=== PATIENT | female | born 1935 | race Caucasian/White ===

== ENCOUNTER 2017-11-21 17:03 | Inpatient (IN) | payer MEDICARE ==
[~2017-11-21] VITALS: Ht 175.3 cm; Wt 85.3 kg
[~2017-11-21 17:03] MED LIST: CARVEDILOL12.5 MG PO; CENTRUM SILVER1 EAC3 PO; DILTIAZEM 24HR180 MG PO; FENOFIBRATE145 MG PO; FUROSEMIDE40 MG PO; GABAPENTIN100 MG PO; KEFLEX500 MG PO; LASIX40 MG PO; LIDOCAINE PATCH TOP; LOVASTATIN20 MG PO; NITROGLYCERIN0.4 MG SL; POTASSIUM CHLO20 ME1 PO; PREDNISONE20 MG PO; PRILOSEC OTC20 MG PO; SYMBICORT 16010.2 GM INH; WARFARIN SODIU2.5 MG PO
[2017-11-21 19:08] LABS: BASOPHILS % 0.2 % (0.0-1.0); EOSINOPHILS % 0.3 % (0.0-6.0); HEMATOCRIT 50.8 % (34.2-44.1); HEMOGLOBIN 16.3 g/dL (12.0-16.0); LYMPHOCYTES # (AUTO) 1.5 (1.0-3.2); LYMPHOCYTES % 10.2 % (18.0-39.1); MEAN CORPUSCULAR HEMOGLOBIN 29.3 pg (28-32); MEAN CORPUSCULAR HGB CONC 32.1 g/dL (31-35); MEAN CORPUSCULAR VOLUME 91.2 fL (81-99); MONOCYTES # (AUTO) 1.2 (0.2-0.8); MONOCYTES % 8.1 % (4.4-11.3); NEUTROPHILS # (AUTO) 11.5 (2.1-6.9); NEUTROPHILS % 80.5 % (38.7-80.0); PLATELET COUNT 215 x10e3/uL (140-360); RED BLOOD COUNT 5.57 x10e6/uL (3.6-5.1); RED CELL DISTRIBUTION WIDTH 15.9 % (11.7-14.4)
[2017-11-21 19:20] LABS: ALBUMIN 3.4 g/dL (3.5-5.0); ANION GAP 19.3 mmol/L (8-16); CALCIUM 8.6 mg/dL (8.4-10.2); CREATININE, SERUM 2.67 mg/dL (0.57-1.11); POTASSIUM 3.3 mmol/L (3.5-5.1)
[2017-11-21 19:29] LABS: CREATINE KINASE MB 3.8 ng/mL (0.00-5.00); TROPONIN I 0.059 ng/mL (0-0.300)
[2017-11-21 19:33] LABS: INR 12.55
--- NOTE | 2017-11-21 19:36 | Diagnostic Imaging Report ---
EXAMINATION: CHEST SINGLE (PORTABLE) INDICATION: Shortness of breath COMPARISON: 08/01/2017 FINDINGS: TUBES and LINES: None. LUNGS: Lungs are not well inflated. There are bibasilar atelectasis. There is no evidence of pneumonia or pulmonary edema. PLEURA: No pleural effusion or pneumothorax. HEART AND MEDIASTINUM: The cardiomediastinal silhouette is unremarkable. There are atherosclerotic calcifications within the aorta. BONES AND SOFT TISSUES: No acute osseous lesion. Soft tissues are unremarkable. UPPER ABDOMEN: No free air under the diaphragm. IMPRESSION: No acute thoracic abnormality. Signed by: Dr. Bravo Acosta M.D. on 11/21/2017 7:32 PM
[2017-11-21] MEDS ORDERED: PHYTONADIONE 10 MG/ML AMP SQ ONE (20:00)
[2017-11-21 21:55] LABS: BILIRUBIN,URINE NEGATIVE (NEGATIVE); CLARITY,URINE CLEAR (CLEAR); COLOR,URINE YELLOW (YELLOW); KETONES,URINE NEGATIVE (NEGATIVE); LEUKOCYTE ESTERASE ,URINE NEGATIVE (NEGATIVE); NITRITE,URINE NEGATIVE (NEGATIVE); PROTEIN,URINE DIPSTICK NEGATIVE (NEGATIVE); URINE UROBILINOGEN 0.2 mg/dL (0.2 - 1)
[2017-11-21 22:16] LABS: EPITHELIAL CELLS,URINE FEW /LPF; RBC,URINE 0-5 /HPF (0-5); WBC,URINE (MAN) 0-5 /HPF (0-5)
[2017-11-21] MEDS ORDERED: ONDANSETRON HCL INJ 2 MG/ML VIAL IV PRN (22:45)
[2017-11-21] MEDS ORDERED: SODIUM CHLORIDE FLUSH 10 ML SYR INJ PRN (22:45)
[2017-11-22] MEDS ORDERED: SODIUM CHLORIDE 0.9% 250ML 250 ML ONE ×3 (00:40→05:57)
[2017-11-22 02:17] LABS: CREATINE KINASE MB 3.1 ng/mL (0.00-5.00); TROPONIN I 0.043 ng/mL (0-0.300)
[2017-11-22] MEDS: OSELTAMIVIR PHOSPHATE 75 MG CAP PO SCH ×2 (09:01→16:15)
[2017-11-22 10:12] LABS: BASOPHILS % 0.3 % (0.0-1.0); EOSINOPHILS # (AUTO) 0.1 (0.0-0.4); EOSINOPHILS % 0.6 % (0.0-6.0); HEMATOCRIT 41.6 % (34.2-44.1); HEMOGLOBIN 13.2 g/dL (12.0-16.0); LYMPHOCYTES # (AUTO) 1.2 (1.0-3.2); LYMPHOCYTES % 11.3 % (18.0-39.1); MEAN CORPUSCULAR HEMOGLOBIN 29.3 pg (28-32); MEAN CORPUSCULAR HGB CONC 31.7 g/dL (31-35); MEAN CORPUSCULAR VOLUME 92.2 fL (81-99); MONOCYTES % 9.5 % (4.4-11.3); NEUTROPHILS # (AUTO) 8.2 (2.1-6.9); PLATELET COUNT 177 x10e3/uL (140-360); RED BLOOD COUNT 4.51 x10e6/uL (3.6-5.1); RED CELL DISTRIBUTION WIDTH 15.9 % (11.7-14.4)
[2017-11-22 10:49] LABS: ALBUMIN 3.4 g/dL (3.5-5.0); ALBUMIN/GLOBULIN RATIO 1.1 (0.8-2.0); ANION GAP 16.8 mmol/L (8-16); CALCIUM 8.8 mg/dL (8.4-10.2); CREATININE, SERUM 1.89 mg/dL (0.57-1.11); INR 1.68; POTASSIUM 3.8 mmol/L (3.5-5.1); PROTHROMBIN TIME 20.7 seconds (11.9-14.5)
[2017-11-22 11:15] LABS: TROPONIN I 0.04 ng/mL (0-0.300)
[2017-11-22] MEDS ORDERED: POTASSIUM CHLORIDE 20 MEQ TAB CR PO STA (12:29)
[2017-11-22] MEDS ORDERED: PREDNISONE 20 MG TAB PO ONE (12:30)
[2017-11-22] MEDS ORDERED: NITROGLYCERIN 0.4 MG SUBL SL PRN (12:30)
[2017-11-22] MEDS ORDERED: DILTIAZEM HCL 60 MG TAB PO SCH (12:30)
[2017-11-22] MEDS ORDERED: FUROSEMIDE 40 MG TAB PO ONE (12:30)
[2017-11-22] MEDS: GABAPENTIN 100 MG CAP PO SCH ×2 (15:00→21:43)
[2017-11-22] MEDS ORDERED: NON-FORMULARY MEDICATION (Omeprazole Magnesium (Prilosec Otc) 20 MG) PO SCH (17:00)
[2017-11-22] MEDS: CARVEDILOL 12.5 MG TAB PO SCH (17:04)
[2017-11-22] MEDS: PANTOPRAZOLE SOD 40 MG TABEC PO SCH (17:04)
[2017-11-22 18:36] VITALS: BP 149/70
--- NOTE | 2017-11-22 19:21 | History and Physical ---
An 82-year-old lady comes in with shortness of breath and Coumadin toxicity. HISTORY OF PRESENT ILLNESS: Ms. Ирина Valenzuela has a history of COPD. She was in her usual state of health and a week prior to admission the patient started to have acute shortness of breath and dyspnea on exertion, and was supposed to see me today, but her symptoms did exacerbate and she came into the emergency room and was found to have flu and admitted for exacerbation of COPD and also history of CHF. The patient also was found to have warfarin toxicity and was admitted for the same. MEDICATIONS: 160 mg twice a day, Carvedilol 12.5 mg, 25 mg twice a day, Keflex 500 mg b.i.d., Diltiazem 180 mg, apparently the patient takes 360 mg, which needs to be verified, fenofibrate 145 mg, Lasix 40 mg, gabapentin 100 mg, lovastatin 20 mg at night time, nitroglycerin 0.5 mg as needed for chest pain, omeprazole, potassium chloride 20 mEq, prednisone 20 mg daily, warfarin 2.5 mg daily and lidocaine patch. PAST SURGICAL HISTORY: History of breast cancer with left mastectomy and a cholecystectomy. FAMILY HISTORY: Positive for father with coronary artery disease. The patient is being taken care of by the [id number] and also the son. REVIEW OF SYSTEMS: Negative for chest pain and positive for shortness of breath, positive for dyspnea on exertion, positive for PND, positive for orthopnea. The patient also has history of atrial fibrillation. He is on warfarin. No hematochezia and no hematemesis. Positive for multiple ecchymoses in the body, no diplopia, no blurry vision and no headaches. PHYSICAL EXAMINATION GENERAL: The patient is alert and oriented x3. VITAL SIGNS: Currently temperature 98.3, pulse 93, blood pressure 177/81, pulse oximetry 100%. HEENT: Normocephalic, atraumatic. Pupils react to light and accommodation. CVS: Sounds irregularly irregular. LUNGS: Positive for rhonchi bilaterally. ABDOMEN: Nontender and nondistended. EXTREMITIES: Possible clubbing and trace edema. LABORATORY DATA: White count 14,000 initially, hemoglobin 16.3 and hematocrit 50.8. Chemistry: Sodium 147, potassium 3.3, creatinine 2.67 and BUN of 78. Albumin 3.4. Glucose 3.3. Urinalysis shows negative serology, influenza positive type A and coags, INR 12.5 and today it is down to 1.68. ASSESSMENT 1. Coumadin toxicity. 2. Influenza. 3. Chronic obstructive pulmonary disease exacerbation. 4. History of atrial fibrillation. 5. History of hypertension and hyperlipidemia. PLAN: For his atrial fibrillation, will continue her warfarin 2.5 mg and recheck INR every day. She is given Tamiflu at this time. Antibiotics have been restarted and steroids have been restarted. Will keep albuterol and Atrovent treatments going, although will have to monitor atrial fibrillation. Will keep an eye on that and keep her in telemetry. Will restart home medications. Further recommendations depending on clinical course. Will continue to monitor the patient while in the hospital. Job#: [id number]
[2017-11-22 20:00] VITALS: BP 157/77
[2017-11-22] MEDS ORDERED: NON-FORMULARY MEDICATION (Lovastatin 20 MG) PO SCH (21:00)
[2017-11-22] MEDS: SIMVASTATIN 20 MG TAB PO SCH (21:44)
--- NOTE | 2017-11-22 22:23 | Consultation ---
DATE OF CONSULTATION: November 22, 2017 PULMONARY CONSULTATION REASON FOR CONSULTATION: Shortness of breath and wheezing. HPI: Ms. Sparrow is an 82-year-old female. She presented to the emergency room with worsening shortness of breath, cough, fever and chills. When she came in her INR was 12.55. She received FFP and INR went down to 1.68. She was in renal failure with creatinine of 2.67. She tested positive for influenza and patient was started on Tamiflu. She is known to me from my office. Patient has history of asthma and sees me in the office. She underwent pulmonary function test and it showed FEV1 of 41% with no bronchodilator responsiveness. She has history of atrial fibrillation, hypertension, congestive heart failure and her INR was supratherapeutic in the emergency room. She denies any chest pain, nausea, vomiting or diarrhea. REVIEW OF SYSTEMS: GENERAL: Denies any fever. She was having chills at home with no fevers. HEAD: Denies any head trauma or head injury. ENT: Denies any earache, nosebleed or throat pain. CVS: Denies any chest pain. RESPIRATORY: Patient has shortness of breath. She was in the hospital recently and was discharged on the 07 of October. PAST MEDICAL HISTORY: Atrial fibrillation, COPD, hypertension and hyperlipidemia. PAST SURGICAL HISTORY: Cholecystectomy and mastectomy for breast cancer. FAMILY AND SOCIAL HISTORY: She still smokes. She has been smoking for 50+ years. PHYSICAL EXAMINATION: VITALS: Temperature 98.74, pulse of 55, blood pressure 132/68, respiratory rate 18, O2 sat 98%. SKIN: Warm and dry. GENERAL APPEARANCE: She is a elderly female in mild respiratory distress. She is awake and alert, following commands. She responds to questions appropriately. HEENT: Head atraumatic, normocephalic. Pupils are reactive. NECK: Supple. No JVD. CHEST: Clear to auscultation bilaterally. Prolonged expiratory phase, occasional wheezing. HEART: S1 and S2 audible. ABDOMEN: Soft, nontender and nondistended. EXTREMITIES: No clubbing, cyanosis or edema. NEUROLOGIC: Awake and alert. LABORATORY DATA: White count of 10,000, hemoglobin 13.2, platelets 177,000. Chemistry: Sodium 153, potassium 3.8, chloride 108, BUN 57, creatinine 1.89. Creatinine was 2.67 on discharge. In August her creatinine was 1.6. Influenza is positive. ASSESSMENT AND PLAN: Ms. Sparrow is an 82-year-old female who presented to the emergency room with cough and wheezing and shortness of breath. She has chronic obstructive pulmonary disease. CURRENT PROBLEMS: 1. Coumadin toxicity. Patient's INR was 10 and now it is 1.68. 2. Acute kidney injury. 3. Influenza. PLAN: 1. Continue the patient on prednisone 20 mg daily. 2. Agree with nebulizer treatment. 3. Tamiflu has been started. 4. Will hold off on the antibiotics. 5. Will hold off on the Lasix for now as the patient's creatinine was 2.67 yesterday and today it is 1.89. Thank you for this consult. Job#: [id number]
[2017-11-22 23:02] VITALS: BP 157/77
[2017-11-22 23:08] VITALS: BP 157/77
[2017-11-23] VITALS: BP 176/76
[2017-11-23 04:00] VITALS: BP 170/88
[2017-11-23 06:54] LABS: BASOPHILS % 0.2 % (0.0-1.0); EOSINOPHILS % 0.2 % (0.0-6.0); HEMATOCRIT 46.4 % (34.2-44.1); HEMOGLOBIN 15.1 g/dL (12.0-16.0); LYMPHOCYTES % 8.3 % (18.0-39.1); MEAN CORPUSCULAR HEMOGLOBIN 29.7 pg (28-32); MEAN CORPUSCULAR HGB CONC 32.5 g/dL (31-35); MEAN CORPUSCULAR VOLUME 91.3 fL (81-99); MONOCYTES # (AUTO) 1.1 (0.2-0.8); MONOCYTES % 8.7 % (4.4-11.3); NEUTROPHILS # (AUTO) 10.2 (2.1-6.9); NEUTROPHILS % 81.7 % (38.7-80.0); PLATELET COUNT 199 x10e3/uL (140-360); RED BLOOD COUNT 5.08 x10e6/uL (3.6-5.1); RED CELL DISTRIBUTION WIDTH 15.9 % (11.7-14.4)
[2017-11-23] MEDS ORDERED: ACETAMINOPHEN 325 MG TAB PO PRN (07:15)
[2017-11-23 07:17] LABS: INR 1.11; PROTHROMBIN TIME 14.9 seconds (11.9-14.5)
[2017-11-23 07:24] LABS: ANION GAP 14.3 mmol/L (8-16); CALCIUM 8.9 mg/dL (8.4-10.2); CREATININE, SERUM 1.27 mg/dL (0.57-1.11); PHOSPHORUS 2.7 MG/DL (2.3-4.7); POTASSIUM 3.3 mmol/L (3.5-5.1)
[2017-11-23] MEDS ORDERED: PANTOPRAZOLE SOD 40 MG TABEC PO SCH (07:30)
[2017-11-23 07:35] LABS: MAGNESIUM 1.4 MG/DL (1.3-2.1)
[2017-11-23] MEDS: BUDESONIDE/FORMOTEROL 160/4.5MCG INHALER INH SCH ×2 (07:43→18:55)
[2017-11-23 07:56] VITALS: BP 188/100
[2017-11-23] MEDS: PANTOPRAZOLE SOD 40 MG TABEC PO SCH ×2 (08:48→16:03)
[2017-11-23] MEDS: POTASSIUM CHLORIDE 20 MEQ TAB CR PO SCH (08:48)
[2017-11-23] MEDS: CARVEDILOL 12.5 MG TAB PO SCH ×2 (08:48→16:03)
[2017-11-23] MEDS: GABAPENTIN 100 MG CAP PO SCH ×3 (08:49→20:45)
[2017-11-23] MEDS: FENOFIBRATE 48 MG TAB PO SCH (08:49)
[2017-11-23] MEDS: MULTIVITAMINS/MINERALS TAB PO SCH (08:49)
[2017-11-23] MEDS: FUROSEMIDE 40 MG TAB PO SCH (08:49)
[2017-11-23] MEDS: OSELTAMIVIR PHOSPHATE 75 MG CAP PO SCH ×2 (08:49→16:03)
[2017-11-23 08:53] LABS: THYROID STIMULATING HORMONE 0.445 uIU/mL (0.350-4.940)
[2017-11-23] MEDS ORDERED: PREDNISONE 20 MG TAB PO SCH (09:00)
[2017-11-23] MEDS ORDERED: NON-FORMULARY MEDICATION (Mu-Vits-Min Th/Lycopene/Lutein (Centrum Silver Tablet) 1 TAB) PO SCH (09:00)
[2017-11-23] MEDS ORDERED: FENOFIBRATE 145 MG TAB PO SCH (09:00)
[2017-11-23] MEDS ORDERED: WARFARIN SOD 2 MG TAB PO SCH (09:00)
[2017-11-23] MEDS ORDERED: DILTIAZEM HCL 180 MG CAP CD PO SCH (09:00)
[2017-11-23 10:33] VITALS: BP 188/100
[2017-11-23] MEDS: DILTIAZEM HCL 180 MG CAP CD PO SCH (11:58)
[2017-11-23] MEDS: WARFARIN SOD 2 MG TAB PO SCH (16:03)
[2017-11-23 16:29] VITALS: BP 157/81
[2017-11-23] MEDS ORDERED: CLONIDINE HCL 0.1 MG TAB PO PRN (19:30)
[2017-11-23] MEDS: SIMVASTATIN 20 MG TAB PO SCH (20:45)
[2017-11-23 21:51] VITALS: BP 157/81
[2017-11-24] VITALS: BP 151/102
[2017-11-24 05:27] VITALS: BP 142/91
[2017-11-24 07:39] LABS: INR 1.06; PROTHROMBIN TIME 14.3 seconds (11.9-14.5)
[2017-11-24] MEDS: BUDESONIDE/FORMOTEROL 160/4.5MCG INHALER INH SCH ×2 (07:49→19:45)
[2017-11-24 07:52] VITALS: BP 173/98
[2017-11-24] MEDS: POTASSIUM CHLORIDE 20 MEQ TAB CR PO SCH (08:50)
[2017-11-24] MEDS: MULTIVITAMINS/MINERALS TAB PO SCH (08:50)
[2017-11-24] MEDS: FENOFIBRATE 48 MG TAB PO SCH (08:50)
[2017-11-24] MEDS: CARVEDILOL 12.5 MG TAB PO SCH ×2 (08:50→17:30)
[2017-11-24] MEDS: FUROSEMIDE 40 MG TAB PO SCH (08:50)
[2017-11-24] MEDS: GABAPENTIN 100 MG CAP PO SCH ×3 (08:50→20:46)
[2017-11-24] MEDS: OSELTAMIVIR PHOSPHATE 75 MG CAP PO SCH ×2 (08:50→17:30)
[2017-11-24] MEDS: PANTOPRAZOLE SOD 40 MG TABEC PO SCH ×2 (08:50→17:30)
[2017-11-24 11:32] VITALS: BP 148/70
[2017-11-24] MEDS: DILTIAZEM HCL 180 MG CAP CD PO SCH (13:05)
[2017-11-24 16:20] VITALS: BP 153/81
[2017-11-24] MEDS: WARFARIN SOD 2 MG TAB PO SCH (17:30)
[2017-11-24 20:00] VITALS: BP_SYST 110; BP_SYST 138; BP_DIAS 76; BP_DIAS 77
[2017-11-24] MEDS: SIMVASTATIN 20 MG TAB PO SCH (20:21)
--- NOTE | 2017-11-24 21:18 | Diagnostic Imaging Report ---
ANKLE 3+ VIEWS LEFT, FOOT LEFT COMPLETE Comparison: None Clinical history: Ankle and foot pain for months Findings: Left foot and ankle: Ankle mortise is intact. There is joint space narrowing, fragmentation and inferior and slight medial migration of the midfoot. These findings are compatible with neuropathic joint/Charcot arthropathy. Mild diffuse soft tissue swelling is noted. Impression: Findings of neuropathic joint/Charcot arthropathy as above. Signed by: Dr Doris Lund MD on 11/24/2017 9:14 PM
[2017-11-25] VITALS: BP 145/71
[2017-11-25 07:06] LABS: BASOPHILS % 0.4 % (0.0-1.0); EOSINOPHILS # (AUTO) 0.1 (0.0-0.4); HEMATOCRIT 44.3 % (34.2-44.1); HEMOGLOBIN 14.3 g/dL (12.0-16.0); LYMPHOCYTES # (AUTO) 1.4 (1.0-3.2); LYMPHOCYTES % 13.3 % (18.0-39.1); MEAN CORPUSCULAR HEMOGLOBIN 29.8 pg (28-32); MEAN CORPUSCULAR HGB CONC 32.3 g/dL (31-35); MEAN CORPUSCULAR VOLUME 92.3 fL (81-99); MONOCYTES % 9.6 % (4.4-11.3); NEUTROPHILS # (AUTO) 7.9 (2.1-6.9); PLATELET COUNT 187 x10e3/uL (140-360); RED CELL DISTRIBUTION WIDTH 16.1 % (11.7-14.4)
[2017-11-25 07:18] LABS: INR 1.16; PROTHROMBIN TIME 15.4 seconds (11.9-14.5)
[2017-11-25 07:31] LABS: CALCIUM 8.8 mg/dL (8.4-10.2); CREATININE, SERUM 1.75 mg/dL (0.57-1.11)
[2017-11-25 07:41] LABS: ANION GAP 14.4 mmol/L (8-16); POTASSIUM 5.4 mmol/L (3.5-5.1)
[2017-11-25] MEDS ORDERED: SODIUM CHLORIDE 0.9% 1000ML 1,000 ML IV SCH (08:00)
[2017-11-25] MEDS: CARVEDILOL 12.5 MG TAB PO SCH ×2 (08:15→16:17)
[2017-11-25] MEDS: PANTOPRAZOLE SOD 40 MG TABEC PO SCH ×2 (08:15→16:18)
[2017-11-25] MEDS: GABAPENTIN 100 MG CAP PO SCH ×3 (08:30→22:00)
[2017-11-25] MEDS: FENOFIBRATE 48 MG TAB PO SCH (08:30)
[2017-11-25] MEDS: OSELTAMIVIR PHOSPHATE 75 MG CAP PO SCH ×2 (08:30→16:18)
[2017-11-25] MEDS: MULTIVITAMINS/MINERALS TAB PO SCH (08:30)
[2017-11-25] MEDS: FUROSEMIDE 40 MG TAB PO SCH (08:30)
[2017-11-25 08:40] VITALS: BP 144/86
[2017-11-25] MEDS: BUDESONIDE/FORMOTEROL 160/4.5MCG INHALER INH SCH ×2 (09:00→10:00)
[2017-11-25] MEDS: POTASSIUM CHLORIDE 20 MEQ TAB CR PO SCH (09:00)
[2017-11-25] MEDS: SODIUM CHLORIDE 0.9% 1000ML 1,000 ML IV SCH ×3 (10:00→22:00)
[2017-11-25 11:51] VITALS: BP 142/71
[2017-11-25] MEDS: DILTIAZEM HCL 180 MG CAP CD PO SCH (12:00)
[2017-11-25] MEDS: WARFARIN SOD 2 MG TAB PO SCH (16:18)
[2017-11-25 17:07] VITALS: BP 144/77
--- NOTE | 2017-11-25 18:05 | Diagnostic Imaging Report ---
EXAM: Renal Ultrasound INDICATION: ATN. COMPARISON: None TECHNIQUE: Transverse and longitudinal images of the kidneys and bladder were obtained. FINDINGS: Right Kidney: Length: 8.1 cm, small Appearance: Increased echogenicity. Collecting system: No hydronephrosis Stones: None Cyst/Mass: None Left Kidney: Length: 9.5 cm Appearance: Increased echogenicity. Collecting system: No hydronephrosis Stones: None Cyst/Mass: Tiny cyst in the lower pole measures 0.7 x 0.5 x 0.5 cm. Bladder: Decompressed by Ly catheter. IMPRESSION: Increased echogenicity of the renal cortex bilaterally suggestive of medical renal disease. No hydronephrosis. Mildly atrophic right kidney. Signed by: Dr. Denice Arce M.D. on 11/25/2017 6:01 PM
[2017-11-25 18:12] LABS: ANION GAP 13.4 mmol/L (8-16); CREATININE, SERUM 1.75 mg/dL (0.57-1.11); POTASSIUM 4.4 mmol/L (3.5-5.1)
[2017-11-25 20:00] VITALS: BP 120/67
[2017-11-25] MEDS: SIMVASTATIN 20 MG TAB PO SCH (22:00)
[2017-11-25 23:20] VITALS: BP 120/67
[2017-11-26 04:00] VITALS: BP 147/77
[2017-11-26] MEDS: SODIUM CHLORIDE 0.9% 1000ML 1,000 ML IV SCH (06:50)
[2017-11-26 07:32] LABS: INR 1.45; PROTHROMBIN TIME 18.4 seconds (11.9-14.5)
[2017-11-26 07:40] VITALS: BP 167/77
[2017-11-26] MEDS: BUDESONIDE/FORMOTEROL 160/4.5MCG INHALER INH SCH (07:52)
[2017-11-26 07:53] VITALS: BP 167/77
[2017-11-26] MEDS: PANTOPRAZOLE SOD 40 MG TABEC PO SCH ×2 (09:57→17:00)
[2017-11-26] MEDS: MULTIVITAMINS/MINERALS TAB PO SCH (09:58)
[2017-11-26] MEDS: FENOFIBRATE 48 MG TAB PO SCH (09:58)
[2017-11-26] MEDS: POTASSIUM CHLORIDE 20 MEQ TAB CR PO SCH (09:58)
[2017-11-26] MEDS: OSELTAMIVIR PHOSPHATE 75 MG CAP PO SCH ×2 (09:58→17:00)
[2017-11-26] MEDS: CARVEDILOL 12.5 MG TAB PO SCH ×2 (09:58→17:00)
[2017-11-26] MEDS: FUROSEMIDE 40 MG TAB PO SCH (09:58)
[2017-11-26] MEDS: GABAPENTIN 100 MG CAP PO SCH ×2 (09:58→15:00)
[2017-11-26 11:34] VITALS: BP 146/85
[2017-11-26 12:37] LABS: ANION GAP 11.2 mmol/L (8-16); CALCIUM 8.2 mg/dL (8.4-10.2); CREATININE, SERUM 1.53 mg/dL (0.57-1.11); POTASSIUM 4.2 mmol/L (3.5-5.1)
[2017-11-26] MEDS: DILTIAZEM HCL 180 MG CAP CD PO SCH (12:46)
[2017-11-26 15:47] VITALS: BP 147/65
[2017-11-26] MEDS: WARFARIN SOD 2 MG TAB PO SCH (17:00)
[2017-11-27] MEDS ORDERED: FUROSEMIDE 20 MG TAB PO SCH (09:00)
== END 2017-11-26 18:27 | disposition home or self-care (01) | DRG 194 ==
LOC: ER 17:03 → ERHOLD 22:39 → MED/SURG3 11-22 17:33
PROVIDERS: ADMIT Family Medicine; ATTEND Family Medicine
PROC: 30233K1 Transfusion of Nonautologous Frozen Plasma into Peripheral Vein, Percutaneous Approach (ICD-10-PCS; principal; 2017-11-22)
PROC: 30233L1 Transfusion of Nonautologous Fresh Plasma into Peripheral Vein, Percutaneous Approach (ICD-10-PCS; 2017-11-22)
DX: J09.X2 Influenza due to identified novel influenza A virus with other respiratory manifestations (principal); J44.1 Chronic obstructive pulmonary disease with (acute) exacerbation; N17.9 Acute kidney failure, unspecified; A52.16 Charcot's arthropathy (tabetic); I13.0 Hypertensive heart and chronic kidney disease with heart failure and stage 1 through stage 4 chronic kidney disease, or unspecified chronic kidney disease; I50.9 Heart failure, unspecified; I48.91 Unspecified atrial fibrillation; T45.515A Adverse effect of anticoagulants, initial encounter; E78.5 Hyperlipidemia, unspecified; Z79.01 Long term (current) use of anticoagulants; N18.9 Chronic kidney disease, unspecified; Y92.019 Unspecified place in single-family (private) house as the place of occurrence of the external cause; Z85.3 Personal history of malignant neoplasm of breast
CPT/HCPCS: 36415; 36430; 71010; 76770; 80048; 80053; 81001; 82550; 82553; 83735; 83880; 84100; 84443; 84484; 84550; 85025; 85610; 85730; 86850; 86900; 87086; 87400; 93005; 93306; 93971; 94640; 96372; 99284; J3430; J7030; J7050; P9017

== ENCOUNTER 2017-12-03 17:51 | Inpatient (IN) | payer MEDICARE ==
[~2017-12-03] VITALS: Ht 175.3 cm; Wt 85.3 kg
--- OUTSIDE RECORDS SUMMARY | 2017-12-03 17:53 | XMS REPORT ---
Author Author [facility] Address Unknown Phone Unavailable Care Team Providers Care Vision Rehabilitation Therapist Name Role Phone ZAHEER ARAUJO Unavailable Unavailable ASHLEY HERNANDEZ Unavailable Unavailable Problems This patient has no known problems. Allergies, Adverse Reactions, Alerts This patient has no known allergies or adverse reactions. Medications This patient has no known medications. Results Test Description Test Time Test Comments Text Results Atomic Results Result Comments US RENAL RETROPERITONEAL COMP [place] [address] Patient Name: CRISTOFER HDEZ MR #: [id number] : 1935 Age/Sex: 82/F Req #: [id number] [facility] Physician: ZAHEER ARAUJO MD Ordered by: RAGHAV COOPER MD Report #: [id number] Location: MED/SURG3 Room/Bed : [facility] Procedure: [id number] US/US RENAL RETROPERITONEAL COMP Exam Date: Exam Time: REPORT STATUS: Signed EXAM: Renal Ultrasound INDICATION: ATN. COMPARISON : None TECHNIQUE: Transverse and longitudinal images of the kidneys and bladder were obtained. FINDINGS: Right Kidney: Length: 8.1 cm, small Appearance: Increased echogenicity. Collecting system: No hydronephrosis Stones: None Cyst/Mass: None Left Kidney: Length: 9.5 cm Appearance: Increased echogenicity. Collecting system: No hydronephrosis Stones: None Cyst/Mass: Tiny cyst in the lower pole measures 0.7 x 0.5 x 0.5 cm. Bladder: Decompressed by Ly catheter. IMPRESSION: Increased echogenicity of the renal cortex bilaterally suggestive of medical renal disease. No hydronephrosis. Mildly atrophic right kidney. Signed by: Dr. Denice Trinh M.D. on 11/25/2017 6:01 PM Dictated By: MATTHEW TRINH MD, MD 00 Transcribed By: NIKKO on 11/25/171800 COPY TO: RAGHAV COOPER MD FOOT LEFT COMPLETE [place] [address] Patient Name: CRISTOFER HDEZ MR #: [id number] : 1935 Age/Sex: 82/F Req #: [id number] Adm Physician: ZAHEER ARAUJO MD Ordered by: ZAHEER ARAUJO MD Report #: [id number] Location: MED/SURG3 Room/Bed: [facility] Procedure: [id number] DX/FOOT LEFT COMPLETE Exam Date : 11/24/17 Exam Time: 2049 REPORT STATUS: Signed ANKLE 3+ VIEWS LEFT, FOOT LEFT COMPLETE Comparison: None Clinical history: Ankle and foot pain for months Findings: Left foot and ankle: Ankle mortise is intact. There is joint space narrowing, fragmentation and inferior and slight medial migration of the midfoot. These findings are compatible with neuropathic joint/Charcot arthropathy. Mild diffuse soft tissue swelling is noted. Impression: Findings of neuropathic joint/Charcot arthropathy as above. Signed by: Dr Ruben Lund MD on 11/24/2017 9:14 PM Dictated By: RUBEN LUND MD 13 Transcribed By: NIKKO on 11/24/172113 COPY TO: ZAHEER ARAUJO MD ANKLE 3+ VIEWS LEFT [place] [address] Patient Name: CRISTOFER HDEZ MR #: [id number] : 1935 Age/Sex: 82/F Req #: [id number] Adm Physician: ZAHEER ARAUJO MD Ordered by: ZAHEER ARAUJO MD Report #: [id number] Location: [facility] Room/Bed: [facility] Procedure: [id number] DX/ANKLE 3+ VIEWS LEFT Exam Date : 11/24/17 Exam Time: 2049 REPORT STATUS: Signed ANKLE 3+ VIEWS LEFT, FOOT LEFT COMPLETE Comparison: None Clinical history: Ankle and foot pain for months Findings: Left foot and ankle: Ankle mortise is intact. There is joint space narrowing, fragmentation and inferior and slight medial migration of the midfoot. These findings are compatible with neuropathic joint/Charcot arthropathy. Mild diffuse soft tissue swelling is noted. Impression: Findings of neuropathic joint/Charcot arthropathy as above. Signed by: Dr Ruben Lund MD on 11/24/2017 9:14 PM Dictated By: RUBEN LUND MD 13 Transcribed By: NIKKO on 11/24/172113 COPY TO: ZAHEER ARAUJO MD CHEST SINGLE (PORTABLE) [place] [address] Patient Name: CRISTOFER HDEZ MR #: [id number] : 1935 Age/Sex: 82/F Req #: [id number] Adm Physician: Ordered by: VARGHESE DIMAS DIRECTOR E LEARNING Report #: [id number] Location: ER Room/Bed: ___ Procedure: [id number] DX/CHEST SINGLE (PORTABLE) Exam Date: 11/21/17 Exam Time: 1909 REPORT STATUS: Signed EXAMINATION: CHEST SINGLE (PORTABLE) INDICATION: Shortness of breath COMPARISON: 08/01/2017 FINDINGS: TUBES and LINES: None. LUNGS: Lungs are not well inflated. There are bibasilar atelectasis. There is no evidence of pneumonia or pulmonary edema. PLEURA: No pleural effusion or pneumothorax. HEART AND MEDIASTINUM: The cardiomediastinal silhouette is unremarkable. There are atherosclerotic calcifications within the aorta. BONES AND SOFT TISSUES: No acute osseous lesion. Soft tissues are unremarkable. UPPER ABDOMEN: No free air under the diaphragm. IMPRESSION: No acute thoracic abnormality. Signed by: Dr. Bravo Acosta M.D. on 11/21/2017 7:32 PM Dictated By: BRAVO MORROW MD 31 COPY TO: VARGHESE DIMAS DIRECTOR E LEARNING CHEST SINGLE (PORTABLE) [place] [address] Patient Name: CRISTOFER HDEZ MR #: [id number] : 1935 Age/Sex: 82/F Req #: [id number] Adm Physician: ASHLEY HERNANDEZ MD Ordered by: MITCHELL SWEET MD Report #: [id number] Location: MED/SURG Room/ Bed: 107-1 Procedure: [id number] DX/CHEST SINGLE ( PORTABLE) Exam Date: 08/05/17 Exam Time: 1240 REPORT STATUS: Signed PROCEDURE: A single AP view of the chest. COMPARISON: [facility], , CHEST SINGLE (PORTABLE), 08/01/2017 , 13:31. INDICATIONS: SHORTNESS OF BREATH, COUGH FINDINGS: Lines/tubes: None. Lungs: Lungs are well-inflated. Linear opacities projecting in the left costophrenic angle likely represents subsegmental atelectasis. No consolidation. No pulmonary edema. Pleura: There is no pleural effusion or pneumothorax. Heart and mediastinum: Stable enlargement of the cardiac silhouette. Mild central pulmonary venous congestion. Bones: No acute bony abnormality. IMPRESSION: 1. stable enlargement of the cardiac silhouette with mild central pulmonary venous congestion. No consolidation or pulmonary edema. Prem Toro M.D. Dictated by: Prem Toro M.D. on 08/05/2017 at 16:55 Electronically approved by: Prem Toro M.D. on 08/05/2017 at 16:55 Dictated By: PREM TORO MD 54 Transcribed By: DIANE on 08/05/171654 COPY TO: MITCHELL SWEET MD CHEST SINGLE (PORTABLE) [place] [address] Patient Name: CRISTOFER HDEZ MR #: [id number] : 1935 Age/Sex: 82/F Req #: [id number] Adm Physician: Ordered by: KATHERIN BATISTA MD Report #: [id number] Location: Room/Bed: Procedure: [id number] DX/CHEST SINGLE (PORTABLE) Exam Date: 08/01/17 Exam Time: 1340 REPORT STATUS: Signed EXAMINATION : Chest, CHEST SINGLE (PORTABLE) INDICATION: Chest pain COMPARISON: None FINDINGS: LINES: None. Heart: Normal cardiac silhouette. Vascular: The pulmonary vasculature is within normal limits. Atherosclerotic calcifications of the aortic arch. Mediastinum: No mediastinal, hilar, or axillary mass or lymphadenopathy. Lungs: No parenchymal mass. No focal consolidation. Pleura: No pleural effusion. No pneumothorax. Bones: No acute osseous abnormality. Degenerative changes of the thoracic spine. Soft tissues: Normal. Impression: No acute radiographic abnormality. Signed by: Dr. Ian Borden M.D. on 08/01/2017 2:23 PM Dictated By: IAN BORDEN MD 1429 Transcribed By: NIKKO on 08/01/171422 COPY TO: KATHERIN BATISTA MD
[2017-12-03] MEDS ORDERED: SODIUM CHLORIDE 0.9% 1000ML 1,000 ML IV STA (17:54)
[2017-12-03 18:19] LABS: BASOPHILS % 0.2 % (0.0-1.0); EOSINOPHILS % 0.1 % (0.0-6.0); HEMATOCRIT 38.2 % (34.2-44.1); HEMOGLOBIN 12.4 g/dL (12.0-16.0); LYMPHOCYTES # (AUTO) 0.8 (1.0-3.2); LYMPHOCYTES % 4.2 % (18.0-39.1); MEAN CORPUSCULAR HEMOGLOBIN 29.9 pg (28-32); MEAN CORPUSCULAR HGB CONC 32.5 g/dL (31-35); MONOCYTES # (AUTO) 2.2 (0.2-0.8); MONOCYTES % 10.9 % (4.4-11.3); NEUTROPHILS # (AUTO) 16.9 (2.1-6.9); PLATELET COUNT 217 x10e3/uL (140-360); RED BLOOD COUNT 4.15 x10e6/uL (3.6-5.1); RED CELL DISTRIBUTION WIDTH 16.5 % (11.7-14.4)
[2017-12-03 18:35] LABS: ALBUMIN 2.7 g/dL (3.5-5.0); ALBUMIN/GLOBULIN RATIO 0.8 (0.8-2.0); ANION GAP 13.6 mmol/L (8-16); CALCIUM 8.3 mg/dL (8.4-10.2); CREATININE, SERUM 2.13 mg/dL (0.57-1.11); POTASSIUM 3.6 mmol/L (3.5-5.1)
--- NOTE | 2017-12-03 18:36 | Diagnostic Imaging Report ---
PROCEDURE: A single AP view of the chest. COMPARISON: None. INDICATIONS: NAUSEA FINDINGS: Lines/tubes: None. Lungs: The lungs are well inflated and grossly clear. There is no evidence of pneumonia or pulmonary edema. Pleura: There is no pleural effusion or pneumothorax. Heart and mediastinum: Enlarged cardiac silhouette. Pulmonary vasculature is normal. Bones: No acute bony abnormality. IMPRESSION: 1. enlarged cardiac silhouette, without acute cardiopulmonary disease. Prem Toro M.D. Dictated by: Prem Toro M.D. on 12/03/2017 at 18:45 Electronically approved by: Prem Toro M.D. on 12/03/2017 at 18:45
[2017-12-03 19:14] LABS: LYMPHOCYTES % (MANUAL) 5 % (19-48); MONOCYTES % (MANUAL) 12 % (3.4-9.0); NEUTROPHILS % (MANUAL) 83 % (40-74); NUCLEATED RED BLOOD CELLS 1; RBC MORPHOLOGY COMMENT NORMAL; STOMATOCYTES SLIGHT
[2017-12-03 19:15] LABS: PLATELET ESTIMATE ADEQUATE; PLATELET MORPHOLOGY COMMENT FEW EDTA CLUMPING
[2017-12-03] MEDS: CEFTRIAXONE SOD 1 GM VIAL IV SCH (19:18)
[2017-12-03 19:24] LABS: CLARITY,URINE SL CLOUDY (CLEAR); COLOR,URINE YELLOW (YELLOW)
[2017-12-03 19:25] LABS: BILIRUBIN,URINE NEGATIVE (NEGATIVE); KETONES,URINE NEGATIVE (NEGATIVE); LEUKOCYTE ESTERASE ,URINE 2+ (NEGATIVE); NITRITE,URINE NEGATIVE (NEGATIVE); URINE UROBILINOGEN 0.2 mg/dL (0.2 - 1)
[2017-12-03 19:27] LABS: PROTEIN,URINE DIPSTICK 2+ (NEGATIVE)
[2017-12-03 19:56] LABS: BACTERIA,URINE MODERATE /HPF; EPITHELIAL CELLS,URINE MODERATE /LPF; RBC,URINE 21-50 /HPF (0-5); TRANSITIONAL EPI CELLS,URINE FEW
[2017-12-03] MEDS: SODIUM CHLORIDE 0.9% 1000ML 1,000 ML IV SCH (20:30)
--- NOTE | 2017-12-03 20:30 | History and Physical ---
This patient comes in with fever and shortness of breath. HISTORY OF PRESENT ILLNESS: Ms. Sparrow was recently discharged from the hospital with a diagnosis of influenza. She started with weakness, generalized fever or 102, according to family, and could not walk at all, and with this the patient was brought to the emergency room and was admitted for leukocytosis. PAST MEDICAL HISTORY: History of hypertension, history of atrial fibrillation, history of COPD, history of hyperlipidemia, history of coronary artery disease, and history of long-term use of warfarin. The patient also takes lidocaine for back pain. MEDICATIONS: Symbicort 160 twice a day, Carvedilol 25 mg twice a day, diltiazem 25 ER 360 mg daily, fenofibrate 145, Lasix 40 mg daily, gabapentin 100 mg 3 times a day, lovastatin 20 mg daily, nitroglycerin 0.4, omeprazole 20, potassium 20, prednisone 20, warfarin 2.5 mg daily and Lidocaine patches. PAST SURGICAL HISTORY: The patient has had cholecystectomy and left mastectomy for breast cancer. REVIEW OF SYSTEMS: Negative for chest pain, positive for shortness of breath. No nausea, vomiting or diarrhea, no constipation, no rectal bleeding, no hematochezia, no hematemesis, no diplopia, no blurry vision. PHYSICAL EXAMINATION GENERAL: The patient is alert and oriented x3. She is a little tachypneic on O2. VITAL SIGNS: Temperature 98.2, pulse 97, blood pressure 119/68, pulse oximetry 98%. HEENT: Normocephalic, atraumatic. Pupils are reactive to light and accommodation. CVS: S1 and S2 normal. Regular rate and rhythm. ABDOMEN: Nontender, nondistended. LUNGS: Decreased air entry into both lung bases. Positive for some expiratory wheezes. EXTREMITIES: No cyanosis, clubbing or edema. IMAGING: Chest x-ray shows enlarged cardiac silhouette without any cardiopulmonary disorders. LABORATORY DATA: White count 20,000 with platelets 217,000, neutrophil count of 84,000. Chemistries: Sodium 132, anion gap 13.6, BUN 43 and creatinine of 2.12. Estimated GFR of 22. Glucose 135. Microbiology: Pending cultures. Other urine has been pending, straight catheter. ASSESSMENT: An 82-year-old lady with leukocytosis and generalized weakness. PLAN: Start her on antibiotics. The patient has been started on fluids for her acute kidney injury. Will also give her some Rocephin 1 gram q.12 h. until urine culture comes back. Will continue to monitor the patient. Further recommendations depending on clinical course. Will also restart all of her home medications. Job#: [id number]
[2017-12-03] MEDS: GABAPENTIN 100 MG CAP PO SCH (21:00)
[2017-12-03] MEDS: SIMVASTATIN 20 MG TAB PO SCH (21:00)
[2017-12-03 22:00] VITALS: BP 124/61
[2017-12-04] VITALS: BP 124/61
[2017-12-04] MEDS ORDERED: COLCRYS0.6 MG PO (01:48)
[2017-12-04] MEDS ORDERED: ALLOPURINOL100 MG PO (01:48)
[2017-12-04] MEDS ORDERED: TYLENOL WITH C1 EACH PO (01:51)
[2017-12-04] MEDS: SODIUM CHLORIDE 0.9% 1000ML 1,000 ML IV SCH ×2 (02:45→21:00)
[2017-12-04 04:00] VITALS: BP 150/78
[2017-12-04] MEDS ORDERED: ACETAMINOPHEN 325 MG TAB PO PRN (05:00)
[2017-12-04 06:44] LABS: BASOPHILS % 0.1 % (0.0-1.0); EOSINOPHILS % 0.1 % (0.0-6.0); HEMATOCRIT 35.5 % (34.2-44.1); HEMOGLOBIN 11.6 g/dL (12.0-16.0); LYMPHOCYTES # (AUTO) 0.7 (1.0-3.2); LYMPHOCYTES % 5.1 % (18.0-39.1); MEAN CORPUSCULAR HEMOGLOBIN 29.8 pg (28-32); MEAN CORPUSCULAR HGB CONC 32.7 g/dL (31-35); MEAN CORPUSCULAR VOLUME 91.3 fL (81-99); MONOCYTES # (AUTO) 1.7 (0.2-0.8); MONOCYTES % 12.1 % (4.4-11.3); NEUTROPHILS # (AUTO) 11.5 (2.1-6.9); PLATELET COUNT 196 x10e3/uL (140-360); RED BLOOD COUNT 3.89 x10e6/uL (3.6-5.1); RED CELL DISTRIBUTION WIDTH 16.5 % (11.7-14.4)
[2017-12-04 06:56] LABS: INR 2.41; PROTHROMBIN TIME 27.5 seconds (11.9-14.5)
[2017-12-04 07:00] LABS: ANION GAP 13.4 mmol/L (8-16); CALCIUM 7.8 mg/dL (8.4-10.2); CREATININE, SERUM 1.84 mg/dL (0.57-1.11); POTASSIUM 3.4 mmol/L (3.5-5.1)
[2017-12-04 08:00] VITALS: BP 133/76
[2017-12-04] MEDS: BUDESONIDE/FORMOTEROL 160/4.5MCG INHALER INH SCH ×2 (09:00→19:45)
[2017-12-04] MEDS: FENOFIBRATE 54 MG PO SCH (09:00)
[2017-12-04] MEDS: DILTIAZEM HCL 180 MG CAP CD PO SCH (09:11)
[2017-12-04] MEDS: FUROSEMIDE 40 MG TAB PO SCH (09:12)
[2017-12-04] MEDS: CARVEDILOL 12.5 MG TAB PO SCH ×2 (09:12→16:50)
[2017-12-04] MEDS: PREDNISONE 20 MG TAB PO SCH (09:12)
[2017-12-04] MEDS: GABAPENTIN 100 MG CAP PO SCH ×3 (09:12→20:50)
[2017-12-04] MEDS: POTASSIUM CHLORIDE 20 MEQ TAB CR PO SCH (09:36)
[2017-12-04 10:23] LABS: LYMPHOCYTES % (MANUAL) 6 % (19-48); MONOCYTES % (MANUAL) 8 % (3.4-9.0); NEUTROPHILS % (MANUAL) 86 % (40-74); PLATELET ESTIMATE ADEQUATE; PLATELET MORPHOLOGY COMMENT NORMAL; RBC MORPHOLOGY COMMENT NORMAL
[2017-12-04] MEDS: CEFTRIAXONE SOD 1 GM VIAL IV SCH ×2 (11:00→20:50)
[2017-12-04 12:00] VITALS: BP 108/60
[2017-12-04 16:00] VITALS: BP 116/70
[2017-12-04] MEDS: WARFARIN SOD 2.5 MG TAB PO SCH (16:50)
[2017-12-04 20:00] VITALS: BP 128/65
[2017-12-04] MEDS: SIMVASTATIN 20 MG TAB PO SCH (20:50)
[2017-12-05] VITALS: BP 137/75
[2017-12-05] MEDS: SODIUM CHLORIDE 0.9% 1000ML 1,000 ML IV SCH ×4 (02:06→20:30)
[2017-12-05 04:00] VITALS: BP 164/85
[2017-12-05 06:25] LABS: BASOPHILS % 0.1 % (0.0-1.0); EOSINOPHILS % 0.1 % (0.0-6.0); HEMOGLOBIN 11.5 g/dL (12.0-16.0); LYMPHOCYTES # (AUTO) 0.6 (1.0-3.2); LYMPHOCYTES % 5.9 % (18.0-39.1); MEAN CORPUSCULAR HEMOGLOBIN 29.6 pg (28-32); MEAN CORPUSCULAR HGB CONC 31.9 g/dL (31-35); MEAN CORPUSCULAR VOLUME 92.8 fL (81-99); MONOCYTES % 9.7 % (4.4-11.3); NEUTROPHILS # (AUTO) 8.8 (2.1-6.9); NEUTROPHILS % 83.6 % (38.7-80.0); PLATELET COUNT 193 x10e3/uL (140-360); RED BLOOD COUNT 3.88 x10e6/uL (3.6-5.1)
[2017-12-05] MEDS: CEFTRIAXONE SOD 1 GM VIAL IV SCH ×2 (06:25→21:14)
[2017-12-05] MEDS: BUDESONIDE/FORMOTEROL 160/4.5MCG INHALER INH SCH ×2 (07:00→19:55)
[2017-12-05 07:01] LABS: CALCIUM 8.5 mg/dL (8.4-10.2); CREATININE, SERUM 1.57 mg/dL (0.57-1.11)
[2017-12-05 08:00] VITALS: BP 154/98
[2017-12-05] MEDS: DILTIAZEM HCL 180 MG CAP CD PO SCH (08:34)
[2017-12-05] MEDS: FUROSEMIDE 40 MG TAB PO SCH (08:35)
[2017-12-05] MEDS: POTASSIUM CHLORIDE 20 MEQ TAB CR PO SCH (08:35)
[2017-12-05] MEDS: GABAPENTIN 100 MG CAP PO SCH ×3 (08:35→21:14)
[2017-12-05] MEDS: PREDNISONE 20 MG TAB PO SCH (08:35)
[2017-12-05] MEDS: CARVEDILOL 12.5 MG TAB PO SCH ×2 (08:35→16:39)
[2017-12-05] MEDS: FENOFIBRATE 54 MG PO SCH (08:35)
[2017-12-05 08:50] LABS: INR 2.88; PROTHROMBIN TIME 31.7 seconds (11.9-14.5)
[2017-12-05 12:00] VITALS: BP 146/80
[2017-12-05 16:00] VITALS: BP 153/80
[2017-12-05] MEDS: WARFARIN SOD 2.5 MG TAB PO SCH (16:39)
[2017-12-05] MEDS: SIMVASTATIN 20 MG TAB PO SCH (21:14)
[2017-12-06] MEDS: CEFTRIAXONE SOD 1 GM VIAL IV SCH (06:03)
[2017-12-06] MEDS: BUDESONIDE/FORMOTEROL 160/4.5MCG INHALER INH SCH (06:47)
[2017-12-06 07:20] LABS: INR 3.63; PROTHROMBIN TIME 38.1 seconds (11.9-14.5)
[2017-12-06 07:45] VITALS: BP 159/91
[2017-12-06 08:10] VITALS: BP 159/91
[2017-12-06] MEDS: FENOFIBRATE 54 MG PO SCH (09:00)
[2017-12-06] MEDS: PREDNISONE 20 MG TAB PO SCH (09:49)
[2017-12-06] MEDS: CARVEDILOL 12.5 MG TAB PO SCH ×2 (09:49→17:14)
[2017-12-06] MEDS: FUROSEMIDE 40 MG TAB PO SCH (09:49)
[2017-12-06] MEDS: GABAPENTIN 100 MG CAP PO SCH ×2 (09:49→14:30)
[2017-12-06] MEDS: POTASSIUM CHLORIDE 20 MEQ TAB CR PO SCH (09:49)
[2017-12-06 13:17] VITALS: BP 145/85
[2017-12-06] MEDS ORDERED: DILTIAZEM HCL 180 MG CAP CD PO SCH (14:00)
[2017-12-06] MEDS: SODIUM CHLORIDE 0.9% 1000ML 1,000 ML IV SCH (15:12)
[2017-12-06] MEDS: WARFARIN SOD 2.5 MG TAB PO SCH (16:34)
[2017-12-06 17:20] VITALS: BP 154/92
== END 2017-12-06 18:17 | disposition home or self-care (01) | DRG 690 ==
LOC: ER 17:51 → MED/SURG2 20:44
PROVIDERS: ADMIT Family Medicine; ATTEND Family Medicine
DX: N39.0 Urinary tract infection, site not specified (principal); N17.9 Acute kidney failure, unspecified; J44.9 Chronic obstructive pulmonary disease, unspecified; I48.91 Unspecified atrial fibrillation; E86.0 Dehydration; I10 Essential (primary) hypertension; I25.10 Atherosclerotic heart disease of native coronary artery without angina pectoris; Z87.891 Personal history of nicotine dependence; B96.20 Unspecified Escherichia coli [E. coli] as the cause of diseases classified elsewhere; Z79.01 Long term (current) use of anticoagulants
CPT/HCPCS: 36415; 71045; 80048; 80053; 81001; 83605; 85025; 85610; 87040; 87086; 87186; 99284; J0696; J7030

== ENCOUNTER 2018-01-29 11:41 | Emergency (ER) | payer MEDICARE ==
[~2018-01-29] VITALS: Ht 175.3 cm; Wt 85.3 kg
[~2018-01-29 11:41] MED LIST changes: +ALLOPURINOL100 MG PO; +COLCRYS0.6 MG PO; +TYLENOL WITH C1 EACH PO
--- OUTSIDE RECORDS SUMMARY | 2018-01-29 11:44 | XMS REPORT | Continuity of Care Document ---
Author Author [facility] Organization [facility] Address [address] [place] [address] Phone Unavailable Care Team Providers Care Digester Cook Name Role Phone ZAHEER ARAUJO MD PCP Insurance Providers Guarantor ScottshaniceИрина lema Address [address] [place] [address] Email [email or web address] Payer [employer] Medicare Replacement Policy Number [id number] Subscriber's Name Ирина Hdez Relationship 18 Self / Same As Patient Group Number [id number] Group Name PPO VALUE Effective Date 17 Advance Directives Directive Response Recorded Date/Time Does the patient have an advance directive? No 12/03/17 10:00pm If yes, is advance directive on file with [facility]? No 12/03/17 10:00pm If not on file with [facility] will patient provide a copy? Yes 12/03/17 10:00pm Do you have a Directive to Physician? No 12/03/17 8:27pm Do you have a Medical Power of Residential Real Estate Appraiser? No 12/03/17 8:27pm Do you have an out of hospital Do Not Resuscitate Order? No 12/03/17 8:27pm Do you have any special needs we should be aware of? No 12/03/17 8:27pm Do you have a support person here with you today? Yes 12/03/17 8:27pm Did patient receive Notice of Privacy Practices? Yes 12/03/17 8:27pm Did patient receive patient rights and responsibilities? Yes 12/03/17 8:27pm Problems Medical Problem Onset Date Status CHF (congestive heart failure) Unknown Coagulopathy Unknown Coumadin toxicity Unknown Dehydration Unknown Influenza A Unknown Medications Current Home Medications Medication Dose Units Route Directions Days Qty Instructions Start Date Acetaminophen With Codeine (Tylenol With Codeine #3 Tablet) 1 Each Tablet 300 Mg Oral As Needed Allopurinol 100 Mg Tablet 100 Mg Oral Daily 30 Tab Budesonide/Formoterol Fumarate (Symbicort 160-4.5 Mcg Inhaler) 10.2 Gm Hfa.aer.ad 160 Mg Inhalation Twice A Day Carvedilol 12.5 Mg Tablet 25 Mg Oral Twice A Day 60 Tab Cephalexin Monohydrate (Keflex) 500 Mg Capsule 500 Mg Oral Twice A Day Colchicine (Colcrys) 0.6 Mg Tablet 0.6 Mg Oral Daily 30 Tab Diltiazem Hcl (Diltiazem 24HR Er) 180 Mg Capcr 360 Mg Oral Daily Fenofibrate Nanocrystallized (Fenofibrate) 145 Mg Tablet 54 Mg Oral Daily Furosemide 40 Mg Tablet 20 Mg Oral Daily 30 Tab Furosemide (Lasix) 40 Mg Tablet 40 Mg Oral Daily 30 Tab Gabapentin 100 Mg Capsule 100 Mg Oral Three Times A Day Lidocaine Patch 1 Patch Topically as needed for Pain Lovastatin 20 Mg Tablet 20 Mg Oral Bedtime Mu-Vits-Min Th/Lycopene/Lutein (Centrum Silver Tablet) 1 Each Tablet 1 Tab Oral Daily Nitroglycerin 0.4 Mg Tab.subl 0.4 Mg Sublingual Every 5 Minutes as needed for Chest Pain Omeprazole Magnesium (Prilosec Otc) 20 Mg Tablet.dr 20 Mg Oral Twice A Day Potassium Chloride 20 Meq Tab.er.prt 20 Meq Oral Daily Prednisone 20 Mg Tab 20 Mg Oral Daily Warfarin Sodium 2.5 Mg Tablet 2.5 Mg Oral Daily 30 Tab Social History Social History Problem Response Recorded Date/Time Onset Date Status Hx Psychiatric Problems No 12/03/2017 10:00pm Not Applicable Not Applicable Hx Eating Disorder No 12/03/2017 10:00pm Not Applicable Not Applicable Hx Substance Use Disorder No 12/03/2017 10:00pm Not Applicable Not Applicable Hx Depression No 12/03/2017 10:00pm Not Applicable Not Applicable Hx Alcohol Use No 12/03/2017 10:00pm Not Applicable Not Applicable Hx Substance Use Treatment No 12/03/2017 10:00pm Not Applicable Not Applicable Hx Physical Abuse No 12/03/2017 10:00pm Not Applicable Not Applicable Smoking Status Start Date Stop Date Current every day smoker Hospital Discharge Instructions No hospital discharge instruction information available. Plan of Care Discharge Date 12/06/17 6:17pm Disposition HOME, SELF-CARE Instructions/Education Provided Dehydration - Adult Fever - Adult Weakness (Generalized) Prescriptions See Medication Section Additional Instructions/Education Resume previous diet. HOLD WARFARIN (COUMADIN) UNTIL WEDNESDAY AT 5:00 PM, THEN RESUME NORMAL DOSE AT THAT TIME Follow up with Dr. Araujo in 1 week. Functional Status Query Response Date Recorded FUNCTIONAL STATUS . December 06, 2017 11:08am Assistive Devices Standard Walker December 03, 2017 10:00pm Ambulation Ability Minimum Assistance December 03, 2017 10:00pm Toileting Ability Standby Assistance December 05, 2017 6:24pm Allergies, Adverse Reactions, Alerts No known allergies. Immunizations No immunization information available. Vital Signs Acute Vital Signs Vital Response Date/Time Temperature (Fahrenheit) 96.6 degrees F (97.6 - 99.5) 12/06/2017 5:20pm Pulse Pulse Rate (adult) 89 bpm (60 - 90) 12/06/2017 5:20pm Respiratory Rate 20 bpm (12 - 24) 12/06/2017 5:20pm Blood Pressure 154/92 mm Hg 12/06/2017 5:20pm Height 5 ft 9 in 12/03/2017 6:13pm Weight 188.04 lb 12/06/2017 8:11am Body Mass Index 27.8 kg/m^2 12/06/2017 8:11am Results Laboratory Results Test Name Result Units Flags Reference Collection Date/Time Result Date/ Time Comments Band Neutrophils % 2 % 08/06/2017 6:55am 08/06/2017 8:58am Metamyelocytes % 3 % H 0-0 08/06/2017 6:55am 08/06/2017 8:58am Reactive Lymphocytes 5 08/06/2017 6:55am 08/06/2017 8:58am Anisocytosis SLIGHT 08/06/2017 6:55am 08/06/2017 8:58am Bedside Glucose 226 mg/dL H 70-120 08/02/2017 8:51pm 08/02/2017 9:52pm Meter ID: [id number] Activated Partial Thromboplast Time 37.0 seconds H 23.8-35.5 11/22/2017 9 :55am 11/22/2017 10:52am Influenza Virus Types A,B Antigen POSITIVE FLU A H NEGATIVE 11/21/2017 11:15pm 11/21/2017 11:49pm Results called to at [id number] on 11/21/17 by Malina Juárez. [place]. Uric Acid 9.4 mg/dL H 2.6-6.0 11/24/2017 6:59am 11/24/2017 7:33pm Phosphorus Level 2.7 MG/DL 2.3-4.7 11/23/2017 6:37am 11/23/2017 7:25am Magnesium Level 1.4 MG/DL 1.3-2.1 11/23/2017 6:37am 11/23/2017 7:35am B-Type Natriuretic Peptide 240.8 pg/mL H 0-100 11/21/2017 5:25pm 2017 7:32pm Creatine Kinase 94 IU/L 29-168 11/22/2017 9:55am 11/22/2017 11:12am Creatine Kinase MB 3.00 ng/mL 0.00-5.00 11/22/2017 9:55am 11/22/2017 11 :21am Troponin I 0.040 ng/mL 0-0.300 11/22/2017 9:55am 11/22/2017 11:21am Thyroid Stimulating Hormone (TSH) 0.445 uIU/mL 0.350-4.940 11/23/2017 6: 37am 11/23/2017 8:55am White Blood Count 10.52 x10e3/uL 4.8-10.8 12/05/2017 6:00am 12/05/2017 6:26am Red Blood Count 3.88 x10e6/uL 3.6-5.1 12/05/2017 6:00am 12/05/2017 6: 26am Hemoglobin 11.5 g/dL L 12.0-16.0 12/05/2017 6:00am 12/05/2017 6:26am Hematocrit 36.0 % 34.2-44.1 12/05/2017 6:00am 12/05/2017 6:26am Mean Corpuscular Volume 92.8 fL 81-99 12/05/2017 6:00am 12/05/2017 6: 26am Mean Corpuscular Hemoglobin 29.6 pg 28-32 12/05/2017 6:00am 12/05/2017 6:26am Mean Corpuscular Hemoglobin Concent 31.9 g/dL 31-35 12/05/2017 6:00am 12/05/2017 6:26am Red Cell Distribution Width 16.0 % H 11.7-14.4 12/05/2017 6:00am 2017 6:26am Platelet Count 193 x10e3/uL 140-360 12/05/2017 6:00am 12/05/2017 6: 26am Neutrophils (%) (Auto) 83.6 % H 38.7-80.0 12/05/2017 6:00am 12/05/2017 6 :26am Lymphocytes (%) (Auto) 5.9 % L 18.0-39.1 12/05/2017 6:00am 12/05/2017 6: 26am Monocytes (%) (Auto) 9.7 % 4.4-11.3 12/05/2017 6:00am 12/05/2017 6: 26am Eosinophils (%) (Auto) 0.1 % 0.0-6.0 12/05/2017 6:00am 12/05/2017 6: 26am Basophils (%) (Auto) 0.1 % 0.0-1.0 12/05/2017 6:00am 12/05/2017 6:26am IM GRANULOCYTES % 0.6 % 0.0-1.0 12/05/2017 6:00am 12/05/2017 6:26am Neutrophils # (Auto) 8.8 H 2.1-6.9 12/05/2017 6:00am 12/05/2017 6: 26am Lymphocytes # (Auto) 0.6 L 1.0-3.2 12/05/2017 6:00am 12/05/2017 6: 26am Monocytes # (Auto) 1.0 H 0.2-0.8 12/05/2017 6:00am 12/05/2017 6:26am Eosinophils # (Auto) 0.0 0.0-0.4 12/05/2017 6:00am 12/05/2017 6:26am Basophils # (Auto) 0.0 0.0-0.1 12/05/2017 6:00am 12/05/2017 6:26am Absolute Immature Granulocyte (auto 0.06 x10e3/uL 0-0.1 12/05/2017 6: 00am 12/05/2017 6:26am Differential Total Cells Counted 100 12/04/2017 6:32am 12/04/2017 10:23am Neutrophils % (Manual) 86 % H 40-74 12/04/2017 6:32am 12/04/2017 10: 23am Lymphocytes % (Manual) 6 % L 19-48 12/04/2017 6:32am 12/04/2017 10:23am Monocytes % (Manual) 8 % 3.4-9.0 12/04/2017 6:32am 12/04/2017 10:23am Nucleated Red Blood Cells 1 12/03/2017 6:05pm 12/03/2017 7:15pm Platelet Estimate ADEQUATE 12/04/2017 6:32am 12/04/2017 10:23am Platelet Morphology Comment NORMAL 12/04/2017 6:32am 12/04/2017 10: 23am Stomatocytes SLIGHT 12/03/2017 6:05pm 12/03/2017 7:15pm Red Cell Morphology Comment NORMAL 12/04/2017 6:32am 12/04/2017 10: 23am Prothrombin Time 38.1 seconds H 11.9-14.5 12/06/2017 6:05am 12/06/2017 7 :21am Prothromb Time International Ratio 3.63 12/06/2017 6:05am 2017 7:21am Oral Anticoagulant Therapy INR Values: 1. Low Intensity Therapy 1.5 - 2.0 2. Moderate Intensity Therapy 2.0 - 3.0 3. High Intensity Therapy(1) 2.5 - 3.5 4. High Intensity Therapy(2) 3.0 - 4.0 5. Panic Value INR > 5.0 Urine Color YELLOW YELLOW 12/03/2017 5:10pm 12/03/2017 7:24pm Urine Clarity SL CLOUDY CLEAR 12/03/2017 5:10pm 12/03/2017 7:24pm Urine Specific [place] 1.015 1.010-1.025 12/03/2017 5:10pm 2017 7:27pm Urine pH 5 5 - 7 12/03/2017 5:10pm 12/03/2017 7:27pm Urine Leukocyte Esterase 2+ H NEGATIVE 12/03/2017 5:10pm 12/03/2017 7: 27pm Urine Nitrite NEGATIVE NEGATIVE 12/03/2017 5:10pm 12/03/2017 7:27pm Urine Protein 2+ H NEGATIVE 12/03/2017 5:10pm 12/03/2017 7:27pm Urine Glucose (UA) NEGATIVE NEGATIVE 12/03/2017 5:10pm 12/03/2017 7: 27pm Urine Ketones NEGATIVE NEGATIVE 12/03/2017 5:10pm 12/03/2017 7:27pm Urine Urobilinogen 0.2 mg/dL 0.2 - 1 12/03/2017 5:10pm 12/03/2017 7: 27pm Urine Bilirubin NEGATIVE NEGATIVE 12/03/2017 5:10pm 12/03/2017 7: 27pm Urine Blood 3+ H NEGATIVE 12/03/2017 5:10pm 12/03/2017 7:27pm Urine WBC 11-20 /HPF H 0-5 12/03/2017 5:10pm 12/03/2017 7:57pm Urine RBC 21-50 /HPF H 0-5 12/03/2017 5:10pm 12/03/2017 7:57pm Urine Bacteria MODERATE /HPF H NONE 12/03/2017 5:10pm 12/03/2017 7:57pm Urine Epithelial Cells MODERATE /LPF NONE 12/03/2017 5:10pm 12/03/2017 7:57pm Urine Transitional Epithelial Cells FEW H NONE 12/03/2017 5:10pm 12/03 7:57pm Sodium Level 140 mmol/L 136-145 12/05/2017 6:00am 12/05/2017 7:06am Potassium Level 4.0 mmol/L 3.5-5.1 12/05/2017 6:00am 12/05/2017 7:06am Chloride Level 105 mmol/L 98-107 12/05/2017 6:00am 12/05/2017 7:06am Carbon Dioxide Level 24 mmol/L 22-29 12/05/2017 6:00am 12/05/2017 7: 06am Anion Gap 15.0 mmol/L 8-16 12/05/2017 6:00am 12/05/2017 7:06am Blood Urea Nitrogen 42 mg/dL H 7-26 12/05/2017 6:00am 12/05/2017 7:06am Creatinine 1.57 mg/dL H 0.57-1.11 12/05/2017 6:00am 12/05/2017 7:06am BUN/Creatinine Ratio 27 H 6-12/05/2017 6:00am 12/05/2017 7:06am Estimat Glomerular Filtration Rate 31 ML/MIN L 60- 12/05/2017 6:00am 01/2018 7:06am Ranges were taken from the National Kidney Disease Education Program and the National Kid[employer] Foundation literature. Reference ranges: 60 or greater: Normal 16-59 (for 3 consecutive months): Chronic kidney disease 15 or less: Kidney failure Glucose Level 127 mg/dL H 74-118 12/05/2017 6:00am 12/05/2017 7:06am Calcium Level 8.5 mg/dL 8.4-10.2 12/05/2017 6:00am 12/05/2017 7:06am Lactic Acid Level 8.6 MG/DL 4.5-19.8 12/03/2017 6:05pm 12/03/2017 6: 32pm Total Bilirubin 0.8 mg/dL 0.2-1.2 12/03/2017 6:05pm 12/03/2017 6:35pm Aspartate Amino Transf (AST/SGOT) 18 IU/L 5-34 12/03/2017 6:05pm 2017 6:35pm Alanine Aminotransferase (ALT/SGPT) 17 IU/L 0-55 12/03/2017 6:05pm 12/2017 6:35pm Total Protein 6.0 g/dL L 6.5-8.1 12/03/2017 6:05pm 12/03/2017 6:35pm Albumin 2.7 g/dL L 3.5-5.0 12/03/2017 6:05pm 12/03/2017 6:35pm Globulin 3.3 g/dL 2.3-3.5 12/03/2017 6:05pm 12/03/2017 6:35pm Albumin/Globulin Ratio 0.8 0.8-2.0 12/03/2017 6:05pm 12/03/2017 6: 35pm Alkaline Phosphatase 76 IU/L 40-150 12/03/2017 6:05pm 12/03/2017 6: 35pm Microbiology Results Procedure Source Organism/Result Collection Date/Time Result Date/Time Result Status Blood Culture Blood NO GROWTH AFTER 72 HOURS 6:05pm 12/06/2017 6:15pm Preliminary Urine Culture Urine,Clean Catch ESCHERICHIA COLI 12/03/2017 5:10pm 2017 7:41am Final Procedures Procedure Status Date Provider(s) TRANSFUSE NONAUT FROZEN PLASMA IN PERIPH VEIN, PERC Completed 11/22/17 KAIT GRANT MD TRANSFUSE NONAUT FRESH PLASMA IN PERIPH VEIN, PERC Completed 11/22/17 KAIT GRANT MD Ultrasound, renal Active 11/25/17 RAGHAV COOPER MD Encounters Encounter Location Arrival/Admit Date Discharge/Depart Date Attending Provider Discharged Inpatient [facility] 12/03/17 8:44pm 12/06/17 6:17pm ZAHEER ARAUJO MD Discharged Inpatient [facility] 11/21/17 10:39pm 6:27pm ZAHEER ARAUJO MD Discharged Inpatient [facility] 08/01/17 4:08pm 08/06/17 1:10pm ASHLEY HERNANDEZ MD
[2018-01-29] MEDS ORDERED: PANTOPRAZOLE SO40 MG PO (12:27)
[2018-01-29] MEDS ORDERED: ALBUTEROL0.63 MG/3 INH (12:27)
[2018-01-29] MEDS ORDERED: BREO ELLIPTA INH (12:27)
[2018-01-29 12:50] LABS: BASOPHILS # (AUTO) 0.1 (0.0-0.1); BASOPHILS % 0.5 % (0.0-1.0); EOSINOPHILS # (AUTO) 0.4 (0.0-0.4); EOSINOPHILS % 3.5 % (0.0-6.0); HEMATOCRIT 41.1 % (34.2-44.1); HEMOGLOBIN 13.2 g/dL (12.0-16.0); LYMPHOCYTES # (AUTO) 1.3 (1.0-3.2); LYMPHOCYTES % 11.7 % (18.0-39.1); MEAN CORPUSCULAR HEMOGLOBIN 30.1 pg (28-32); MEAN CORPUSCULAR HGB CONC 32.1 g/dL (31-35); MEAN CORPUSCULAR VOLUME 93.8 fL (81-99); MONOCYTES # (AUTO) 1.1 (0.2-0.8); MONOCYTES % 9.7 % (4.4-11.3); NEUTROPHILS # (AUTO) 8.3 (2.1-6.9); PLATELET COUNT 271 x10e3/uL (140-360); RED BLOOD COUNT 4.38 x10e6/uL (3.6-5.1); RED CELL DISTRIBUTION WIDTH 16.2 % (11.7-14.4)
[2018-01-29] MEDS ORDERED: HYDROCODONE/APAP 5MG-325MG TAB PO ONE (13:00)
[2018-01-29] MEDS ORDERED: ONDANSETRON HCL INJ 2 MG/ML VIAL IV ONE (13:00)
[2018-01-29] MEDS ORDERED: MORPHINE SULFATE 2 MG/ML SYR IV ONE ×2 (13:00→15:30)
[2018-01-29 13:10] LABS: INR 2.63; PROTHROMBIN TIME 26.4 seconds (11.9-14.5)
[2018-01-29 13:11] LABS: PARTIAL THROMBOPLASTIN TIME 44.1 seconds (23.8-35.5)
[2018-01-29 13:19] LABS: ALBUMIN 3.7 g/dL (3.5-5.0); ALBUMIN/GLOBULIN RATIO 1.2 (0.8-2.0); ANION GAP 13.7 mmol/L (8-16); CALCIUM 9.5 mg/dL (8.4-10.2); CREATININE, SERUM 1.51 mg/dL (0.57-1.11); POTASSIUM 3.7 mmol/L (3.5-5.1)
--- NOTE | 2018-01-29 13:33 | Diagnostic Imaging Report ---
KNEE RIGHT THREE VIEWS HISTORY: Pain. COMPARISON: None available. FINDINGS: Bones: No acute displaced fracture. Osseous alignment is within normal limits. Joints: The joint spaces are well-maintained. Patellar enthesopathic changes. Soft tissues: Vascular calcifications. No significant suprapatellar joint effusion. Soft tissue swelling of the knee. IMPRESSION: No acute osseous abnormality. Signed by: DR. Augustus Duncan MD on 01/29/2018 1:29 PM
--- NOTE | 2018-01-29 13:34 | Diagnostic Imaging Report ---
SHOULDER LEFT COMPLETE HISTORY: Pain. COMPARISON: None available. FINDINGS: Bones: No acute displaced fracture. Osseous alignment is within normal limits. Joints: The joint spaces are well-maintained. Soft tissues: The soft tissues appear unremarkable. IMPRESSION: No acute radiographic abnormality. Signed by: DR. Augustus Duncan MD on 01/29/2018 1:31 PM
--- NOTE | 2018-01-29 13:34 | Diagnostic Imaging Report ---
PELVIS AP 1-2 VIEWS HISTORY: Fall. COMPARISON: None available. FINDINGS: Bones: Some of the osseous structures are partially obscured by overlying bowel gas and stool. No acute displaced fracture. Osseous alignment is within normal limits. Joints: Mild degenerative changes of the hips and sacroiliac joints. Soft tissues: Vascular calcifications project over the pelvis. IMPRESSION: No acute displaced fractures. Signed by: DR. Augustus Duncan MD on 01/29/2018 1:30 PM
--- NOTE | 2018-02-12 19:25 | Consultation ---
DATE OF CONSULTATION: REQUESTING PHYSICIAN: Dr. Patel. REASON FOR CONSULTATION: CKD. HISTORY OF PRESENT ILLNESS: This is an 82-year-old female with history of CKD stage 3 and VA. She is not sure of exact baseline creatinine. Does have history of hypertension, apparently mild diabetes, atrial fibrillation on anticoagulation, COPD, and chronic lymphedema for which she takes p.o. Lasix. Had a fall 1 week after an earlier fall, which resulted in hemarthrosis. She hit her knee, had some scrapes, has been getting weak, and because of concern for cellulitis after the fall, she was brought into the hospital. She does have chronic swelling. She drinks a lot of water, but does try to avoid salt. There is a prior history of 75-ckal-ikyk smoking. Currently denying any dyspnea or chronic swelling. Denying any fever or chills. PAST HISTORY: CKD presumed stage 3, COPD, chronic lymphedema, atrial flutter/fibrillation on chronic anticoagulation, and recent cellulitis, which may have gotten worse. MEDICATIONS: Please see list. SOCIAL HISTORY: A 50 to 21-avsg-ohuo history of smoking. FAMILY HISTORY: No kidney problems, hypertension, or spasm. REVIEW OF SYSTEMS CONSTITUTIONAL: No fever or chills. NEURO: Frequent falls. RESPIRATORY: Minimal dyspnea at baseline. CARDIAC: Denying angina or syncope. VASCULAR: Leg swelling. SKIN: Redness on the left leg. PHYSICAL EXAMINATION GENERAL: Lying in bed, in no distress. VITAL SIGNS: Temperature is 36.7, pulse 93, and blood pressure 147/80. HEENT: Atraumatic. NECK: No JVD. CHEST: Clear. Bilateral breath sounds are equal. CARDIAC: Regular rhythm. Sounds regular. Normal heart tones. Pansystolic murmur. ABDOMEN: Benign. EXTREMITIES: Edema 2+. SKIN: Redness on the left leg extending above the knee and also old stasis changes. LAB DATA: Hemoglobin 10.2. Potassium 3.5, serum CO2 29, creatinine 2, BUN 36, and estimated GFR 24 mL per minute. UA is pending at time of this dictation. INR is 2.4. ASSESSMENT: Probable chronic kidney disease stage 3 to 4, presumed nephrosclerosis. Volume status is fluid overload; however, most of this is likely in extravascular space due to the lymphedema. PLAN: Avoid nephrotoxins. Low salt intake. Keep fluids limited to 1-1/2 liters a day. They have consulted on this as well as the importance of that, that may allow us to get away with less diuretics. Keep legs elevated. Get renal ultrasound and urine studies. We will follow along. If she will get vancomycin on a intermediate project manager basis, please check vancomycin levels. Job#: [id number] VAS
== END 2018-01-29 14:57 | disposition home or self-care (01) ==
LOC: ER 11:41
DX: S80.01XA Contusion of right knee, initial encounter (principal); W18.2XXA Fall in (into) shower or empty bathtub, initial encounter; Y93.E1 Activity, personal bathing and showering; Y92.002 Bathroom of unspecified non-institutional (private) residence as the place of occurrence of the external cause; Z85.3 Personal history of malignant neoplasm of breast
CPT/HCPCS: 36415; 72170; 73030; 73562; 80053; 85025; 85610; 85730; 99284; J2270; J2405

== ENCOUNTER 2018-03-21 16:22 | Inpatient (IN) | payer MEDICARE ==
[~2018-03-21] VITALS: Ht 175.3 cm; Wt 126.6 kg
[~2018-03-21 16:22] MED LIST changes: +ALBUTEROL0.63 MG/3 INH; +BREO ELLIPTA INH; +PANTOPRAZOLE SO40 MG PO
--- OUTSIDE RECORDS SUMMARY | 2018-03-21 16:25 | XMS REPORT | Continuity of Care Document ---
Author Author [facility] Organization [facility] Address [address] [place] [address] Phone Unavailable Care Team Providers Care Ambulatory Services Representative Name Role Phone ZAHEER ARAUJO MD PCP Insurance Providers Guarantor Ирина Hdez Address [address] [place] [address] Email [email or web address] Payer [employer] Medicare Replacement Policy Number [id number] Subscriber's Name Ирина Hdez Relationship 18 Self / Same As Patient Group Number [id number] Group Name PPO VALUE Effective Date 17 Advance Directives Directive Response Recorded Date/Time Does the patient have an advance directive? No 12/03/17 10:00pm If yes, is advance directive on file with [facility]? No 12/03/17 10:00pm If not on file with [facility] will patient provide a copy? No 01/29/18 12:23pm Do you have a Directive to Physician? No 01/29/18 12:23pm Do you have a Medical Power of Salesperson Neckties? No 01/29/18 12:23pm Do you have an out of hospital Do Not Resuscitate Order? No 01/29/18 12:23pm Do you have any special needs we should be aware of? No 01/29/18 12:23pm Do you have a support person here with you today? Yes 01/29/18 12:23pm Did patient receive Notice of Privacy Practices? Yes 01/29/18 12:23pm Did patient receive patient rights and responsibilities? Yes 01/29/18 12:23pm Problems Medical Problem Onset Date Status CHF (congestive heart failure) Unknown Coagulopathy Unknown Coumadin toxicity Unknown Dehydration Unknown Influenza A Unknown Medications Current Home Medications Medication Dose Units Route Directions Days Qty Instructions Start Date Albuterol Sulfate 0.63 Mg/3 Ml Vial.neb 1 Dose Inhalation As Needed as needed for Shortness Of Breath Allopurinol 100 Mg Tablet 100 Mg Oral Daily 30 Tab Breo Ellipta 200 Mcg Inhalation Daily Carvedilol 12.5 Mg Tablet 25 Mg Oral Twice A Day 60 Tab Colchicine (Colcrys) 0.6 Mg Tablet 0.6 Mg Oral Daily 30 Tab Diltiazem Hcl (Diltiazem 24HR Er) 180 Mg Capcr 360 Mg Oral Daily Furosemide 40 Mg Tablet 20 Mg Oral Daily 30 Tab Gabapentin 100 Mg Capsule 100 Mg Oral Three Times A Day Lidocaine Patch 1 Patch Topically as needed for Pain Lovastatin 20 Mg Tablet 20 Mg Oral Bedtime Nitroglycerin 0.4 Mg Tab.subl 0.4 Mg Sublingual Every 5 Minutes as needed for Chest Pain Pantoprazole Sodium (Protonix) 40 Mg Tablet.dr 40 Mg Oral Daily Potassium Chloride 20 Meq Tab.er.prt 20 Meq Oral Daily Warfarin Sodium 2.5 Mg Tablet 2.5 Mg Oral Daily 30 Tab Past Home Medications Medication Directions Ordered Status Acetaminophen With Codeine (Tylenol With Codeine #3 Tablet) 1 Each Tablet, 300 Mg Oral As Needed Discontinued Budesonide/Formoterol Fumarate (Symbicort 160-4.5 Mcg Inhaler) 10.2 Gm Hfa.aer.ad, 160 Mg Inhalation Twice A Day Discontinued Cephalexin Monohydrate (Keflex) 500 Mg Capsule, 500 Mg Oral Twice A Day Discontinued Fenofibrate Nanocrystallized (Fenofibrate) 145 Mg Tablet, 54 Mg Oral Daily Discontinued Furosemide (Lasix) 40 Mg Tablet, 40 Mg Oral Daily Discontinued Mu-Vits-Min Th/Lycopene/Lutein (Centrum Silver Tablet) 1 Each Tablet, 1 Tab Oral Daily Discontinued Omeprazole Magnesium (Prilosec Otc) 20 Mg Tablet.dr, 20 Mg Oral Twice A Day Discontinued Prednisone 20 Mg Tab, 20 Mg Oral Daily Discontinued Social History Social History Problem Response Recorded [...] information available. Plan of Care Discharge Date 01/29/18 2:57pm Disposition HOME, SELF-CARE Condition at Discharge Stable Instructions/Education Provided Contusion Forms Provided Work/School Excuse Prescriptions See Medication Section Referrals ZAHEER ARAUJO MD Address: [address] [place] [address] NELI AZEVEDO MD Address: [address] [place] [address] Additional Instructions/Education 1. follow up with orthopedic doctor in 1-2 days without fail 2. return to ed as needed 3. knee immobilizer / walker 4. ice 20 minutes, every hour 5. use splint while walking Functional Status No functional status information available. Allergies, Adverse Reactions, Alerts No known allergies. Immunizations No immunization information available. Vital Signs Acute Vital Signs Vital Response Date/Time Temperature (Fahrenheit) 96.6 degrees F (97.6 - 99.5) 12/06/2017 5:20pm Pulse Pulse Rate (adult) 89 bpm (60 - 90) 12/06/2017 5:20pm Respiratory Rate 20 bpm (12 - 24) 12/06/2017 5:20pm Blood Pressure 154/92 mm Hg 12/06/2017 5:20pm Height 5 ft 9 in 01/29/2018 12:11pm Weight 188 lb 01/29/2018 12:11pm Body Mass Index 27.8 kg/m^2 01/29/2018 12:11pm Results Laboratory Results Test Name Result Units Flags Reference Collection Date/Time Result Date/ Time Comments Band Neutrophils % 2 % 08/06/2017 6:55am 08/06/2017 8:58am Metamyelocytes % 3 % H 0-0 08/06/2017 6:55am 08/06/2017 8:58am Reactive Lymphocytes 5 08/06/2017 6:55am 08/06/2017 8:58am Anisocytosis SLIGHT 08/06/2017 6:55am 08/06/2017 8:58am Bedside Glucose 226 mg/dL H 70-120 08/02/2017 8:51pm 08/02/2017 9:52pm Meter ID: [id number] Influenza Virus Types A,B Antigen POSITIVE FLU A H NEGATIVE 11/21/2017 11:15pm 11/21/2017 11:49pm Results called to at 2348 on 11/21/17 by Malina Juárez. ROYAL PALMER. Uric Acid 9.4 mg/dL H 2.6-6.0 11/24/2017 [...] uIU/mL 0.350-4.940 11/23/2017 6: 37am 11/23/2017 8:55am Differential Total Cells Counted 100 12/04/2017 6:32am [...] Comment NORMAL 12/04/2017 6:32am 12/04/2017 10: 23am Urine Color YELLOW YELLOW 12/03/2017 5:10pm 12/03/2017 7:24pm Urine Clarity SL CLOUDY CLEAR 12/03/2017 5:10pm 12/03/2017 7:24pm Urine Specific [place] 1.015 1.010-1.025 12/03/2017 5:10pm 2017 7:27pm Urine [...] FEW H NONE 12/03/2017 5:10pm 12/03 7:57pm Lactic Acid Level 8.6 MG/DL 4.5-19.8 12/03/2017 6:05pm 12/03/2017 6: 32pm White Blood Count 11.16 x10e3/uL H 4.8-10.8 01/29/2018 12:21pm 2017 12:58pm Red Blood Count 4.38 x10e6/uL 3.6-5.1 01/29/2018 12:pm 01/29/2018 12: 58pm Hemoglobin 13.2 g/dL 12.0-16.0 01/29/2018 12:pm 01/29/2018 12:58pm Hematocrit 41.1 % 34.2-44.1 01/29/2018 12:pm 01/29/2018 12:58pm Mean Corpuscular Volume 93.8 fL 81-99 01/29/2018 12:pm 01/29/2018 12: 58pm Mean Corpuscular Hemoglobin 30.1 pg 28-32 01/29/2018 12:pm 2017 12:58pm Mean Corpuscular Hemoglobin Concent 32.1 g/dL 31-35 01/29/2018 12:pm 01/29/2018 12:58pm Red Cell Distribution Width 16.2 % H 11.7-14.4 01/29/2018 12:pm 2017 12:58pm Platelet Count 271 x10e3/uL 140-360 01/29/2018 12:pm 01/29/2018 12: 58pm Neutrophils (%) (Auto) 74.0 % 38.7-80.0 01/29/2018 12:pm 01/29/2018 12:58pm Lymphocytes (%) (Auto) 11.7 % L 18.0-39.1 01/29/2018 12:01/29/2018 12:58pm Monocytes (%) (Auto) 9.7 % 4.4-11.3 01/29/2018 12:21pm 01/29/2018 12: 58pm Eosinophils (%) (Auto) 3.5 % 0.0-6.0 01/29/2018 12:pm 01/29/2018 12: 58pm Basophils (%) (Auto) 0.5 % 0.0-1.0 01/29/2018 12:21pm 01/29/2018 12: 58pm IM GRANULOCYTES % 0.6 % 0.0-1.0 01/29/2018 12:21pm 01/29/2018 12:58pm Neutrophils # (Auto) 8.3 H 2.1-6.9 01/29/2018 12:pm 01/29/2018 12: 58pm Lymphocytes # (Auto) 1.3 1.0-3.2 01/29/2018 12:21pm 01/29/2018 12: 58pm Monocytes # (Auto) 1.1 H 0.2-0.8 01/29/2018 12:pm 01/29/2018 12: 58pm Eosinophils # (Auto) 0.4 0.0-0.4 01/29/2018 12:pm 01/29/2018 12: 58pm Basophils # (Auto) 0.1 0.0-0.1 01/29/2018 12:pm 01/29/2018 12:58pm Absolute Immature Granulocyte (auto 0.07 x10e3/uL 0-0.1 01/29/2018 12: 21pm 01/29/2018 12:58pm Prothrombin Time 26.4 seconds H 11.9-14.5 01/29/2018 12:01/29/2018 1:10pm Prothromb Time International Ratio 2.63 01/29/2018 12:pm 2017 1:10pm Oral Anticoagulant Therapy INR Values: 1. Low Intensity Therapy 1.5 - 2.0 2. Moderate Intensity Therapy 2.0 - 3.0 3. High Intensity Therapy(1) 2.5 - 3.5 4. High Intensity Therapy(2) 3.0 - 4.0 5. Panic Value INR > 5.0 Activated Partial Thromboplast Time 44.1 seconds H 23.8-35.5 01/29/2018 12:01/29/2018 1:11pm Sodium Level 140 mmol/L 136-145 01/29/2018 12:01/29/2018 1:22pm Potassium Level 3.7 mmol/L 3.5-5.1 01/29/2018 12:01/29/2018 1: 22pm Chloride Level 99 mmol/L 98-107 01/29/2018 12:01/29/2018 1:22pm Carbon Dioxide Level 31 mmol/L H 22-01/29/2018 12:01/29/2018 1: 22pm Anion Gap 13.7 mmol/L 8-16 01/29/2018 12:01/29/2018 1:22pm Blood Urea Nitrogen 30 mg/dL H 7-01/29/2018 12:01/29/2018 1: 22pm Creatinine 1.51 mg/dL H 0.57-1.11 01/29/2018 12:01/29/2018 1:22pm BUN/Creatinine Ratio 20 6-25 01/29/2018 12:01/29/2018 1:22pm Estimat Glomerular Filtration Rate 33 ML/MIN L 60- 01/29/2018 12: 1:22pm Ranges were taken from the National Kidney Disease Education Program and the National Kidney Foundation literature. Reference ranges: 60 or greater: Normal 16-59 (for 3 consecutive months): Chronic kidney disease 15 or less: Kidney failure Glucose Level 120 mg/dL H 74-118 01/29/2018 12:01/29/2018 1:22pm Calcium Level 9.5 mg/dL 8.4-10.2 01/29/2018 12:01/29/2018 1:22pm Total Bilirubin 0.7 mg/dL 0.2-1.2 01/29/2018 12:01/29/2018 1:22pm Aspartate Amino Transf (AST/SGOT) 16 IU/L 5-34 01/29/2018 12:01/29 1:22pm Alanine Aminotransferase (ALT/SGPT) 17 IU/L 0-55 01/29/2018 12: 1:22pm Total Protein 6.8 g/dL 6.5-8.1 01/29/2018 12:21pm 01/29/2018 1:22pm Albumin 3.7 g/dL 3.5-5.0 01/29/2018 12:21pm 01/29/2018 1:22pm Globulin 3.1 g/dL 2.3-3.5 01/29/2018 12:21pm 01/29/2018 1:22pm Albumin/Globulin Ratio 1.2 0.8-2.0 01/29/2018 12:21pm 01/29/2018 1: 22pm Alkaline Phosphatase 98 IU/L 40-150 01/29/2018 12:21pm 01/29/2018 1: 22pm Microbiology Results Procedure Source Organism/Result Collection Date/Time Result Date/Time Result Status Blood Culture Blood NO GROWTH AFTER 5 DAYS, FINAL REPORT 12/03/2017 6:05pm 12/08/2017 6:15pm Final Urine Culture Urine,Clean Catch ESCHERICHIA COLI 12/03/2017 5:10pm 2017 7:41am Final Procedures Procedure Status Date Provider(s) TRANSFUSE NONAUT FROZEN PLASMA IN PERIPH VEIN, PERC Completed 11/22/17 KAIT GRANT MD TRANSFUSE NONAUT FRESH PLASMA IN PERIPH VEIN, PERC Completed 11/22/17 KAIT GRANT MD Ultrasound, renal Active 11/25/17 RAGHAV COOPER MD Encounters Encounter Location Arrival/Admit Date Discharge/Depart Date Attending Provider Registered Emergency Room [facility] 01/29/18 11:41am CARMITA HOUSER MD Discharged Inpatient [facility] 12/03/17 8:44pm 12/06/17 6:17pm ZAHEER ARAUJO MD Discharged Inpatient [facility] 11/21/17 10:39pm 6:27pm ZAHEER ARAUJO MD Discharged Inpatient [facility] 08/01/17 4:08pm 08/06/17 1:10pm ASHLEY HERNANDEZ MD
[2018-03-21 17:34] LABS: RED BLOOD COUNT 3.92 x10e6/uL (3.6-5.1)
[2018-03-21 17:35] LABS: HEMATOCRIT 34.6 % (34.2-44.1); HEMOGLOBIN 10.6 g/dL (12.0-16.0); LYMPHOCYTES % 1.1 % (18.0-39.1); MEAN CORPUSCULAR HGB CONC 30.6 g/dL (31-35); MEAN CORPUSCULAR VOLUME 88.3 fL (81-99); MONOCYTES % 1.1 % (4.4-11.3); NEUTROPHILS % 5.4 % (38.7-80.0); PLATELET COUNT 323 x10e3/uL (140-360); RED CELL DISTRIBUTION WIDTH 17.1 % (11.7-14.4)
[2018-03-21 17:36] LABS: EOSINOPHILS % 0.3 % (0.0-6.0)
[2018-03-21] MEDS ORDERED: SODIUM CHLORIDE FLUSH 10 ML SYR INJ PRN (17:45)
[2018-03-21] MEDS ORDERED: ONDANSETRON HCL 4 MG ORAL DISINTEGRATING TAB PO PRN (17:45)
[2018-03-21 18:21] LABS: ANION GAP 15.1 mmol/L (8-16); CREATININE, SERUM 2.7 mg/dL (0.57-1.11); POTASSIUM 3.1 mmol/L (3.5-5.1)
[2018-03-21 18:22] LABS: ALBUMIN 3.5 g/dL (3.5-5.0); ALBUMIN/GLOBULIN RATIO 1.1 (0.8-2.0); CALCIUM 9.7 mg/dL (8.4-10.2)
--- NOTE | 2018-03-21 18:40 | Diagnostic Imaging Report ---
PROCEDURE: A single AP view of the chest. COMPARISON: 12/03/17 INDICATIONS: BILATERAL LOWER EXTREMITY SWELLING FINDINGS: Lines/tubes: None. Lungs and pleura: Limited by body habitus and patient's chin which obscures lung apices. Pulmonary vascular congestion. Small left pleural effusion. No visible pneumothorax. Heart and mediastinum: Enlarged cardiac silhouette. Aorta is calcified and tortuous. Bones: No acute bony abnormality. IMPRESSION: Pulmonary vascular congestion. Small left pleural effusion. Enlarged cardiac silhouette. Dictated by: Jose Luis Perez M.D. on 03/21/2018 at 18:43 Electronically approved by: Jose Luis Perez M.D. on 03/21/2018 at 18:43
[2018-03-21] MEDS ORDERED: VANCOMYCIN 500MG/NS 0.9% 100ML 100 ML IV SCH (18:45)
--- NOTE | 2018-03-21 19:26 | History and Physical ---
This 82-year-old female comes in with increase of weight and also right lower extremity swelling and erythema. HISTORY OF PRESENT ILLNESS: Ms. Ирина Sparrow with a history of chronic kidney disease. She was in her usual state of health until the patient was seen in the hospital and discharged from nearby hospital with edema. She was on IV Lasix at that time and also had IV vancomycin and Zosyn. The patient was put on antibiotics at home and was discharged. The patient did get better, but over a short course of time, the patient developed increased edema and increased erythema in the lower extremities and weeping. Was given Bumex in the clinic for her third spacing. The patient still continued to gain weight and came into the office and was sent to the emergency room for admission and possible IV antibiotics and IV Lasix. PAST MEDICAL HISTORY: History of gout, history of hypertension, history of neuropathy, history of hyperlipidemia, history of coronary artery disease, history of Charcot joint, history of atrial fibrillation and history of COPD. MEDICATIONS: Albuterol, allopurinol 100 mg, Carvedilol 12.5 twice a day, Colchicine 0.6, diltiazem 180, Lasix 40 mg, gabapentin 100, lovastatin 20, nitroglycerin 0.4 as needed, pantoprazole 40 mg, potassium 20 mEq, warfarin 2.5 mg daily, Breo Ellipta 200 mcg, Lidocaine patch as needed. PAST SURGICAL HISTORY: History of left mastectomy for breast cancer, history of cholecystectomy and cataract surgery. SOCIAL HISTORY: Lives with son who is the primary volumetric weigher and also etzylafn-li-hjq who is taking care of her. No ETOH. She is an exsmoker. No IV drug abuse either. REVIEW OF SYSTEMS: Negative for chest pain. Positive for some shortness of breath, positive for some fatigue and . No nausea, vomiting, diarrhea, no constipation, no rectal bleeding, no hematochezia and no hematemesis. Positive for fluid overload in the lower extremities. PHYSICAL EXAMINATION GENERAL: Alert and oriented x3. VITAL SIGNS: Temperature 96.7, pulse 86, blood pressure 131/68, pulse oximetry of 85% on 2 liters of oxygen. HEENT: Normocephalic, atraumatic. Pupils react to light and accommodation. CVS: S1 and S2 normal, irregularly irregular. ABDOMEN: Nontender and nondistended. EXTREMITIES: There is 3+ edema extending all the way to the thigh, and also crusting lesions on the lower extremities bilaterally extending all the way to the ankle. Left lower extremity swelling as well as on the right. LABORATORY DATA: Initial white count is 7.87, neutrophil count 5.4, hemoglobin 10.6, hematocrit 34.6. Chemistry: Sodium 145, potassium 3.1, BUN 57, creatinine 2.7 with GFR of 17. BNP was 1232.9. Coags are normal. Hematology: Hemoglobin 10.6 and hematocrit 34.2. ASSESSMENT 1. Volume overload. 2. Chronic kidney disease with acute kidney injury. 3. Hypertension. 4. Chronic obstructive pulmonary disease. 5. Charcot joint. 6. Anemia of chronic disease. PLAN: Continue with diuresis. Echocardiogram has been ordered. Also, a consult with Dr. Borges can be done for chronic kidney disease. She probably will need some IV Lasix drip. Will continue to monitor the patient. Further recommendations depending on clinical course. Will also consult Dr. Diaz for possible vancomycin 500 mg renal dose every day for her lower extremity cellulitis. Job#: [id number]
[2018-03-21] MEDS: MORPHINE SULFATE 2 MG/ML SYR IV PRN (22:01)
[2018-03-21] MEDS ORDERED: VANCOMYCIN 1GM/NS 250 ML 250 ML ONE (22:09)
[2018-03-22] VITALS (8 sets, daily range): BP systolic 126–182; BP diastolic 54–86
[2018-03-22 06:44] LABS: BASOPHILS % 0.7 % (0.0-1.0); EOSINOPHILS # (AUTO) 0.3 (0.0-0.4); EOSINOPHILS % 4.4 % (0.0-6.0); HEMATOCRIT 32.3 % (34.2-44.1); LYMPHOCYTES % 16.6 % (18.0-39.1); MEAN CORPUSCULAR HEMOGLOBIN 27.1 pg (28-32); MEAN CORPUSCULAR VOLUME 87.5 fL (81-99); MONOCYTES % 17.6 % (4.4-11.3); NEUTROPHILS # (AUTO) 3.5 (2.1-6.9); NEUTROPHILS % 60.5 % (38.7-80.0); PLATELET COUNT 312 x10e3/uL (140-360); RED BLOOD COUNT 3.69 x10e6/uL (3.6-5.1)
[2018-03-22 07:14] LABS: ANION GAP 16.9 mmol/L (8-16); CALCIUM 9.5 mg/dL (8.4-10.2); CREATININE, SERUM 2.46 mg/dL (0.57-1.11)
[2018-03-22 07:16] LABS: POTASSIUM 2.9 mmol/L (3.5-5.1)
[2018-03-22] MEDS ORDERED: POTASSIUM CHLORIDE 20MEQ/100ML 200 ML IV ONE (08:30)
[2018-03-22] MEDS ORDERED: SODIUM CHLORIDE 0.9% 250ML 250 ML ONE (08:34)
[2018-03-22] MEDS ORDERED: VANCOMYCIN 500MG/NS 0.9% 100ML 100 ML IV SCH (09:00)
[2018-03-22] MEDS ORDERED: FUROSEMIDE INJ 10 MG/ML 4 ML VIAL IV SCH (09:00)
[2018-03-22] MEDS ORDERED: BUMETANIDE INJ 0.25MG/ML 4ML VIAL IV SCH (09:00)
[2018-03-22] MEDS ORDERED: ALBUTEROL SULF 0.083% NEB SOLN 3 ML NEB INH PRN ×2 (10:30→11:45)
[2018-03-22] MEDS ORDERED: NITROGLYCERIN 0.4 MG SUBL SL PRN (10:30)
[2018-03-22] MEDS ORDERED: ALBUTEROL SULF 0.083% NEB SOLN 3 ML NEB NEB PRN (11:45)
[2018-03-22] MEDS ORDERED: MAGNESIUM SULFATE 2GM/50ML 50 ML IV ONE (14:30)
[2018-03-22] MEDS ORDERED: POTASSIUM CHLORIDE 20MEQ/100ML 100 ML IV ONE (14:30)
--- NOTE | 2018-03-22 15:09 | Consultation ---
DATE OF CONSULTATION: March 22, 2018 HISTORY OF PRESENT ILLNESS: Ms. Sparrow is well known to me. She is a delightful, 82-year-old white female with multiple comorbids including history of chronic kidney disease stage 3, history of congestive heart failure, hypertension, history of diabetes, anemia. Renal consulted for management of hypokalemia and acute kidney injury. She is currently awake, alert, in no apparent distress. She is breathing a whole lot better. Has an underlying history of COPD, chronic kidney disease, baseline creatinine 1.7, hyperlipidemia, atrial fibrillation. CURRENT REVIEW OF SYSTEMS: Negative for nausea, vomiting, orthopnea, chest pain, shortness of breath. ALLERGIES: PREGABALIN. CURRENT MEDICATIONS: Patient is on: 1. Vancomycin 1 gram IV q.12. 2. Allopurinol 100 mg daily. 3. Bumex 1 mg IV daily. 4. Carvedilol 25 mg b.i.d. 5. Colchicine 0.6 mg p.o. daily. 6. Diltiazem 360 mg daily. 7. Furosemide 80 mg IV b.i.d. 8. Pantoprazole. 9. Morphine sulfate p.r.n. 10. Warfarin 2.5 mg daily. For dose schedule please see MAR. SOCIAL HISTORY: Patient does not smoke or drink. FAMILY HISTORY: Significant for hypertension. CURRENT LABS: White count of 5.8, hemoglobin 10. Sodium 146. Potassium 2.9. Bicarbonate 28. BUN 55 and creatinine 2.46. BNP 1238. SOCIAL HISTORY: Patient does not smoke or drink. FAMILY HISTORY: As above. PHYSICAL EXAMINATION GENERAL: Awake, alert, lying supine in no apparent distress. VITALS: Blood pressure of 147/79. Pulse rate 78. Afebrile. Respiratory rate 18. HEAD AND NECK: Corneas are clear. Arcus senilis noted. Oral mucosa is moist. Neck veins flat. LUNGS: Relatively clear. HEART: S1 and S2 audible. No significant rubs or gallop. ABDOMEN: Otherwise soft and nontender. EXTREMITIES: Upper and lower extremities are puffy but no clear-cut pitting edema. Lower extremity pretibial, I would say towards the ankle, 1+ edema. IMPRESSION AND PLAN 1. Hypokalemia. 2. Mxdhn-jt-uamhqeh kidney failure. 3. Chronic kidney disease, stage 3. 4. Underlying nephrosclerosis. 5. Hypertension. 6. Congestive heart failure. 7. Multiple comorbids. Agree with potassium replacement. Will give a total of 60 mEq IV piggyback over 6 hours. Will give 2 grams of magnesium sulfate. Order urine anurrsu-ez-igrfiannqu ratio. Strict intake and output. Will discontinue Bumex and IV Lasix. Change to p.o. Lasix 40 mg p.o. b.i.d. Please see orders. Job#: [id number]
[2018-03-22] MEDS: CEFEPIME HCL 1 GM VIAL IV SCH (15:15)
[2018-03-22] MEDS: GABAPENTIN 100 MG CAP PO SCH ×2 (15:15→21:35)
--- NOTE | 2018-03-22 15:56 | Consultation ---
DATE OF CONSULTATION: March 22, 2018 REASON FOR CONSULTATION: Cellulitis of the lower extremity. HISTORY OF PRESENT ILLNESS: This patient is known to me from before. She is a very pleasant, 82-year-old white female with history of obesity, history of bilateral lower extremities with severe lymphedema, history of chronic kidney disease, history of congestive heart failure. She is coming with redness and swelling of bilateral lower extremities. She was just recently in the hospital where we gave her IV antibiotic including vancomycin and then she was discharged home. The patient was there for a few days, coming back with redness and swelling of bilateral extremities, worsening condition. She is being admitted. This patient is currently lying in bed comfortably. She does have history of gout, obesity, hypertension, neuropathy, hyperlipidemia, coronary artery disease, atrial fibrillation, Charcot joint and COPD. PAST SURGICAL HISTORY: Left mastectomy for breast cancer, cataract surgery and cholecystectomy. ALLERGIES: NKA. SOCIAL HISTORY: Does not smoke, no drug abuse, no alcohol abuse. FAMILY HISTORY: Hypertension. REVIEW OF SYSTEMS: HEENT: Negative. PULMONARY: Negative. CARDIAC: Negative. : Negative. GI: Negative. SKIN: There is no other rash. All other systems besides what mentioned above is normal. HOME MEDICATIONS: She is on albuterol, allopurinol, Carvedilol, Diltiazem, colchicine, gabapentin, Lovastatin, . PHYSICAL EXAMINATION: GENERAL: She is currently alert, oriented and does not seem to be in acute distress. VITALS: Stable. Currently afebrile. HEENT: She is not icteric. Normocephalic. NECK: Supple. No JVD. CHEST: A few crackles at the bases. COR: S1 and S2. No S3 or S4. No murmurs. ABDOMEN: Soft, obese, nontender, nondistended. EXTREMITIES: Bilateral lower extremities with erythema and +3 edema. IMPRESSION: 1. Cellulitis in a patient who is fluid overloaded, morbidly obese patient with underlying bilateral lower extremities with lymphedema. 2. Chronic obstructive pulmonary disease. 3. Charcot joint. RECOMMENDATIONS: I agree with diuresis. I agree with renal evaluation. The patient was recently in the hospital so has increased risk for resistant pathogens. I agree with vancomycin. Will follow level. Will add cefepime, adjust for kidney function. She will need thigh-high elastic stockings to reduce fluid. Will check CBC. Will check Chem Panel. Thank you for asking me to see this patient. Job#: [id number] GH
[2018-03-22] MEDS: WARFARIN SOD 2.5 MG TAB PO SCH (17:10)
[2018-03-22] MEDS: CARVEDILOL 12.5 MG TAB PO SCH (17:10)
[2018-03-22] MEDS: FUROSEMIDE 40 MG TAB PO SCH (17:39)
[2018-03-22] MEDS ORDERED: CLONIDINE HCL 0.1 MG TAB PO PRN (17:45)
[2018-03-22] MEDS: MORPHINE SULFATE 2 MG/ML SYR IV PRN (20:06)
[2018-03-22] MEDS ORDERED: NON-FORMULARY MEDICATION (Lovastatin 20 MG) PO SCH (21:00)
[2018-03-22] MEDS: SIMVASTATIN 20 MG TAB PO SCH (21:35)
[2018-03-23] VITALS (9 sets, daily range): BP systolic 120–167; BP diastolic 57–87
[2018-03-23] MEDS: CEFEPIME HCL 1 GM VIAL IV SCH ×2 (03:11→15:49)
[2018-03-23] MEDS: FUROSEMIDE 40 MG TAB PO SCH ×2 (05:44→17:00)
--- NOTE | 2018-03-23 06:39 | Diagnostic Imaging Report ---
EXAM: SHOULDER LEFT COMPLETE, AP, axial and scapular y-view INDICATION: Hurt left shoulder COMPARISON: 2 views of the left shoulder January 29, 2018 FINDINGS: BONES: No acute fractures. JOINTS: Degenerative changes of the acromioclavicular joint. SOFT TISSUES: Normal IMPRESSION: No left shoulder fracture or dislocation. Signed by: Dr. Lory Mclain M.D. on 03/23/2018 6:35 AM
[2018-03-23 07:40] LABS: ALBUMIN 3.2 g/dL (3.5-5.0); ANION GAP 16.5 mmol/L (8-16); CALCIUM 9.5 mg/dL (8.4-10.2); CREATININE, SERUM 2.48 mg/dL (0.57-1.11); MAGNESIUM 1.7 MG/DL (1.3-2.1); PHOSPHORUS 3.9 MG/DL (2.3-4.7); POTASSIUM 3.5 mmol/L (3.5-5.1)
[2018-03-23] MEDS ORDERED: DILTIAZEM HCL 180 MG CAP CD PO SCH (09:00)
[2018-03-23] MEDS: COLCHICINE 0.6 MG TAB PO SCH (09:02)
[2018-03-23] MEDS: VANCOMYCIN 500MG/NS 0.9% 100ML 100 ML IV SCH (09:02)
[2018-03-23] MEDS: CARVEDILOL 12.5 MG TAB PO SCH ×2 (09:02→16:57)
[2018-03-23] MEDS: ALLOPURINOL 100 MG TAB PO SCH (09:02)
[2018-03-23] MEDS: PANTOPRAZOLE SOD 40 MG TABEC PO SCH (09:02)
[2018-03-23] MEDS: GABAPENTIN 100 MG CAP PO SCH ×3 (09:02→20:13)
[2018-03-23] MEDS: DILTIAZEM HCL 180 MG CAP CD PO SCH (12:17)
[2018-03-23] MEDS: WARFARIN SOD 2.5 MG TAB PO SCH (17:00)
[2018-03-23] MEDS ORDERED: POTASSIUM CHLORIDE 20 MEQ TAB CR PO ONE (19:00)
[2018-03-23] MEDS: SIMVASTATIN 20 MG TAB PO SCH (20:13)
[2018-03-24] VITALS (8 sets, daily range): BP systolic 115–144; BP diastolic 57–81
[2018-03-24] MEDS: CEFEPIME HCL 1 GM VIAL IV SCH (03:43)
[2018-03-24] MEDS: FUROSEMIDE 40 MG TAB PO SCH ×2 (06:01→17:35)
[2018-03-24 07:20] LABS: INR 2.57; PROTHROMBIN TIME 25.9 seconds (11.9-14.5)
[2018-03-24 07:34] LABS: ALBUMIN 3.2 g/dL (3.5-5.0); ALBUMIN/GLOBULIN RATIO 1.1 (0.8-2.0); ANION GAP 15.7 mmol/L (8-16); CALCIUM 9.6 mg/dL (8.4-10.2); CREATININE, SERUM 2.24 mg/dL (0.57-1.11); POTASSIUM 3.7 mmol/L (3.5-5.1)
[2018-03-24] MEDS: COLCHICINE 0.6 MG TAB PO SCH (08:41)
[2018-03-24] MEDS: VANCOMYCIN 500MG/NS 0.9% 100ML 100 ML IV SCH (08:41)
[2018-03-24] MEDS: PANTOPRAZOLE SOD 40 MG TABEC PO SCH (08:42)
[2018-03-24] MEDS: ALLOPURINOL 100 MG TAB PO SCH (08:42)
[2018-03-24] MEDS: CARVEDILOL 12.5 MG TAB PO SCH ×2 (08:42→16:24)
[2018-03-24] MEDS: GABAPENTIN 100 MG CAP PO SCH ×3 (08:42→20:37)
[2018-03-24] MEDS ORDERED: MEROPENEM 500MG 500 MG in SODIUM CHLORIDE 0.9% 50ML 50 ML IV SCH (11:00)
[2018-03-24] MEDS: DILTIAZEM HCL 180 MG CAP CD PO SCH (12:36)
[2018-03-24] MEDS: MEROPENEM 500 MG VIAL IV SCH (12:45)
[2018-03-24] MEDS: WARFARIN SOD 2.5 MG TAB PO SCH (16:29)
[2018-03-24] MEDS: SIMVASTATIN 20 MG TAB PO SCH (20:37)
[2018-03-25] VITALS (7 sets, daily range): BP systolic 122–139; BP diastolic 57–80
[2018-03-25] MEDS: FUROSEMIDE 40 MG TAB PO SCH ×2 (05:26→18:00)
[2018-03-25 07:26] LABS: INR 2.89; PROTHROMBIN TIME 28.4 seconds (11.9-14.5)
[2018-03-25] MEDS: ALLOPURINOL 100 MG TAB PO SCH (09:00)
[2018-03-25] MEDS: MEROPENEM 500 MG VIAL IV SCH (09:00)
[2018-03-25] MEDS: PANTOPRAZOLE SOD 40 MG TABEC PO SCH (09:00)
[2018-03-25] MEDS: COLCHICINE 0.6 MG TAB PO SCH (09:00)
[2018-03-25] MEDS: CARVEDILOL 12.5 MG TAB PO SCH ×2 (09:00→17:00)
[2018-03-25] MEDS: GABAPENTIN 100 MG CAP PO SCH ×3 (09:00→20:45)
[2018-03-25 10:59] LABS: ALBUMIN 3.2 g/dL (3.5-5.0); ALBUMIN/GLOBULIN RATIO 1.1 (0.8-2.0); ANION GAP 15.6 mmol/L (8-16); CALCIUM 9.5 mg/dL (8.4-10.2); CREATININE, SERUM 2.14 mg/dL (0.57-1.11); POTASSIUM 3.6 mmol/L (3.5-5.1)
[2018-03-25] MEDS: DILTIAZEM HCL 180 MG CAP CD PO SCH (12:00)
[2018-03-25] MEDS: NYSTATIN 15 GM POWDER UD BTL TOP SCH (17:00)
[2018-03-25] MEDS: WARFARIN SOD 2.5 MG TAB PO SCH (17:00)
[2018-03-25] MEDS: SIMVASTATIN 20 MG TAB PO SCH (20:45)
[2018-03-26] VITALS (7 sets, daily range): BP systolic 133–167; BP diastolic 60–79
[2018-03-26] MEDS: FUROSEMIDE 40 MG TAB PO SCH ×2 (05:00→17:04)
[2018-03-26 07:46] LABS: INR 2.97
[2018-03-26] MEDS: COLCHICINE 0.6 MG TAB PO SCH (09:10)
[2018-03-26] MEDS: MEROPENEM 500 MG VIAL IV SCH (09:10)
[2018-03-26] MEDS: CARVEDILOL 12.5 MG TAB PO SCH ×2 (09:10→17:04)
[2018-03-26] MEDS: ALLOPURINOL 100 MG TAB PO SCH (09:10)
[2018-03-26] MEDS: GABAPENTIN 100 MG CAP PO SCH ×3 (09:10→20:54)
[2018-03-26] MEDS: PANTOPRAZOLE SOD 40 MG TABEC PO SCH (09:10)
[2018-03-26] MEDS: NYSTATIN 15 GM POWDER UD BTL TOP SCH ×2 (09:10→17:04)
[2018-03-26] MEDS: DILTIAZEM HCL 180 MG CAP CD PO SCH (12:30)
--- NOTE | 2018-03-26 15:48 | Progress Note ---
DATE: March 26, 2018 Ms. Sparrow is feeling better. The legs seem to be getting better. She is saying it is furniture stainer. No fever. No chills. REVIEW OF SYSTEMS: Otherwise unremarkable. PHYSICAL EXAMINATION: GENERAL: She is currently alert, oriented and does not seem to be in acute distress. VITALS: Stable. Currently afebrile. HEENT: She is not icteric. NECK: Supple. CHEST: Clear. COR: No murmurs. ABDOMEN: Soft, obese. EXTREMITIES: Bilateral lower extremities are less erythematous. She has significant lymphedema still. LABS: Reviewed. Wound culture showed Pseudomonas aeruginosa, proteus and enterococcus. No recent labs. IMPRESSION 1. Cellulitis of the leg. 2. Obesity. 3. Lymphedema. 4. Anemia of chronic disease, slowly getting better. 5. Chronic kidney disease. Continue with meropenem for a few more days. Will follow. Job#: [id number]
[2018-03-26] MEDS: WARFARIN SOD 2.5 MG TAB PO SCH (17:04)
[2018-03-26] MEDS ORDERED: ACETAMINOPHEN 325 MG TAB PO PRN (19:15)
[2018-03-26] MEDS: SIMVASTATIN 20 MG TAB PO SCH (20:54)
[2018-03-27] VITALS (8 sets, daily range): BP systolic 129–149; BP diastolic 58–69
[2018-03-27] MEDS: FUROSEMIDE 40 MG TAB PO SCH ×2 (05:22→18:00)
[2018-03-27] MEDS: ACETAMINOPHEN/CODEINE 300MG - 30MG TAB PO PRN ×2 (05:22→13:32)
[2018-03-27 07:44] LABS: INR 2.93; PROTHROMBIN TIME 28.7 seconds (11.9-14.5)
[2018-03-27] MEDS: GABAPENTIN 100 MG CAP PO SCH ×3 (08:30→20:27)
[2018-03-27] MEDS: COLCHICINE 0.6 MG TAB PO SCH (08:30)
[2018-03-27] MEDS: ALLOPURINOL 100 MG TAB PO SCH (08:30)
[2018-03-27] MEDS: PANTOPRAZOLE SOD 40 MG TABEC PO SCH (08:30)
[2018-03-27] MEDS: MEROPENEM 500 MG VIAL IV SCH (08:30)
[2018-03-27] MEDS: CARVEDILOL 12.5 MG TAB PO SCH ×2 (08:30→17:00)
[2018-03-27] MEDS: NYSTATIN 15 GM POWDER UD BTL TOP SCH ×2 (09:00→17:00)
[2018-03-27] MEDS: DILTIAZEM HCL 180 MG CAP CD PO SCH (12:15)
--- NOTE | 2018-03-27 14:39 | Progress Note ---
DATE: March 27, 2018 SUBJECTIVE: Ms. Sparrow continued to do better. No new complaints. The leg is better. REVIEW OF SYSTEMS: There is nothing new. MEDICATION LIST: She is on Tylenol, Coreg, clonidine, diltiazem, Lasix, Neurontin, and meropenem. LABORATORY DATA: Reviewed. White count 5.85. Sodium 141, potassium 3.6, creatinine 2.14. PHYSICAL EXAMINATION GENERAL: She is alert and comfortable. VITALS: Stable. Currently afebrile. HEENT: She does not appear icteric. NECK: Supple. CHEST: Clear. COR: S1, S2. No murmurs. ABDOMEN: Soft, obese. EXTREMITIES: The legs have lymphedema with erythema subsided. IMPRESSION 1. Cellulitis in a patient with obesity and lymphedema, getting better. 2. Chronic kidney disease. 3. Neuropathy. 4. Congestive heart failure. PLAN: Continue with antibiotic. Continue with diuresis. Elastic stocking on every morning up to the knees. We will follow. Job#: [id number] VAS
[2018-03-27] MEDS: WARFARIN SOD 2.5 MG TAB PO SCH (17:00)
[2018-03-27] MEDS: SIMVASTATIN 20 MG TAB PO SCH (20:27)
[2018-03-28] VITALS (7 sets, daily range): BP systolic 126–159; BP diastolic 61–75
[2018-03-28] MEDS: FUROSEMIDE 40 MG TAB PO SCH ×2 (05:21→17:12)
[2018-03-28 06:55] LABS: BASOPHILS # (AUTO) 0.1 (0.0-0.1); BASOPHILS % 0.7 % (0.0-1.0); EOSINOPHILS # (AUTO) 0.4 (0.0-0.4); EOSINOPHILS % 4.9 % (0.0-6.0); HEMATOCRIT 32.7 % (34.2-44.1); HEMOGLOBIN 9.8 g/dL (12.0-16.0); LYMPHOCYTES % 14.5 % (18.0-39.1); MEAN CORPUSCULAR HEMOGLOBIN 26.7 pg (28-32); MEAN CORPUSCULAR VOLUME 89.1 fL (81-99); MONOCYTES # (AUTO) 0.9 (0.2-0.8); MONOCYTES % 12.5 % (4.4-11.3); NEUTROPHILS # (AUTO) 4.8 (2.1-6.9); NEUTROPHILS % 67.3 % (38.7-80.0); PLATELET COUNT 242 x10e3/uL (140-360); RED BLOOD COUNT 3.67 x10e6/uL (3.6-5.1); RED CELL DISTRIBUTION WIDTH 17.2 % (11.7-14.4)
[2018-03-28 07:07] LABS: INR 3.42; PROTHROMBIN TIME 32.4 seconds (11.9-14.5)
[2018-03-28 07:15] LABS: ANION GAP 14.5 mmol/L (8-16); CALCIUM 9.3 mg/dL (8.4-10.2); CREATININE, SERUM 1.83 mg/dL (0.57-1.11); POTASSIUM 3.5 mmol/L (3.5-5.1)
[2018-03-28] MEDS: PANTOPRAZOLE SOD 40 MG TABEC PO SCH (09:25)
[2018-03-28] MEDS: CARVEDILOL 12.5 MG TAB PO SCH ×2 (09:25→17:09)
[2018-03-28] MEDS: ALLOPURINOL 100 MG TAB PO SCH (09:25)
[2018-03-28] MEDS: GABAPENTIN 100 MG CAP PO SCH ×3 (09:25→20:05)
[2018-03-28] MEDS: COLCHICINE 0.6 MG TAB PO SCH (09:25)
[2018-03-28] MEDS: MEROPENEM 500 MG VIAL IV SCH (09:25)
[2018-03-28] MEDS: NYSTATIN 15 GM POWDER UD BTL TOP SCH ×2 (09:26→17:12)
[2018-03-28] MEDS: DILTIAZEM HCL 180 MG CAP CD PO SCH (11:35)
[2018-03-28] MEDS: WARFARIN SOD 2.5 MG TAB PO SCH (17:00)
[2018-03-28] MEDS: ACETAMINOPHEN/CODEINE 300MG - 30MG TAB PO PRN (17:39)
[2018-03-28] MEDS ORDERED: POTASSIUM CHLORIDE 20 MEQ TAB CR PO STA (19:25)
[2018-03-28] MEDS: SIMVASTATIN 20 MG TAB PO SCH (20:05)
[2018-03-29] VITALS (8 sets, daily range): BP systolic 138–172; BP diastolic 63–73
[2018-03-29] MEDS: FUROSEMIDE 40 MG TAB PO SCH ×2 (05:39→17:14)
[2018-03-29 07:11] LABS: INR 3.01; PROTHROMBIN TIME 29.3 seconds (11.9-14.5)
[2018-03-29] MEDS: CARVEDILOL 12.5 MG TAB PO SCH ×2 (08:28→16:14)
[2018-03-29] MEDS: COLCHICINE 0.6 MG TAB PO SCH (08:44)
[2018-03-29] MEDS: NYSTATIN 15 GM POWDER UD BTL TOP SCH ×2 (08:44→16:14)
[2018-03-29] MEDS: ALLOPURINOL 100 MG TAB PO SCH (08:44)
[2018-03-29] MEDS: GABAPENTIN 100 MG CAP PO SCH ×3 (08:44→20:16)
[2018-03-29] MEDS: PANTOPRAZOLE SOD 40 MG TABEC PO SCH (08:44)
[2018-03-29] MEDS: MEROPENEM 500 MG VIAL IV SCH (08:44)
[2018-03-29] MEDS: DILTIAZEM HCL 180 MG CAP CD PO SCH (11:51)
[2018-03-29] MEDS: ACETAMINOPHEN/CODEINE 300MG - 30MG TAB PO PRN (18:50)
[2018-03-29] MEDS: SIMVASTATIN 20 MG TAB PO SCH (20:16)
[2018-03-30] VITALS (8 sets, daily range): BP systolic 131–182; BP diastolic 63–90
[2018-03-30] MEDS: FUROSEMIDE 40 MG TAB PO SCH ×2 (05:43→16:47)
[2018-03-30 06:58] LABS: INR 2.47; PROTHROMBIN TIME 25.1 seconds (11.9-14.5)
[2018-03-30 07:11] LABS: ALBUMIN 3.2 g/dL (3.5-5.0); ALBUMIN/GLOBULIN RATIO 1.1 (0.8-2.0); ANION GAP 12.9 mmol/L (8-16); CALCIUM 9.6 mg/dL (8.4-10.2); CREATININE, SERUM 2.04 mg/dL (0.57-1.11); POTASSIUM 3.9 mmol/L (3.5-5.1)
[2018-03-30] MEDS: MEROPENEM 500 MG VIAL IV SCH (08:35)
[2018-03-30] MEDS: CARVEDILOL 12.5 MG TAB PO SCH ×2 (08:36→16:47)
[2018-03-30] MEDS: GABAPENTIN 100 MG CAP PO SCH ×3 (08:36→21:42)
[2018-03-30] MEDS: NYSTATIN 15 GM POWDER UD BTL TOP SCH ×2 (08:36→16:00)
[2018-03-30] MEDS: ALLOPURINOL 100 MG TAB PO SCH (08:36)
[2018-03-30] MEDS: PANTOPRAZOLE SOD 40 MG TABEC PO SCH (08:36)
[2018-03-30] MEDS ORDERED: DOXYCYCLINE HY100 MG PO (11:20)
[2018-03-30] MEDS: DILTIAZEM HCL 180 MG CAP CD PO SCH (12:14)
[2018-03-30] MEDS: ACETAMINOPHEN/CODEINE 300MG - 30MG TAB PO PRN (19:23)
[2018-03-30] MEDS: SIMVASTATIN 20 MG TAB PO SCH (21:42)
[2018-03-31 04:25] VITALS: BP 151/66
[2018-03-31] MEDS: FUROSEMIDE 40 MG TAB PO SCH (06:38)
[2018-03-31 07:43] VITALS: BP 153/72
[2018-03-31 08:00] VITALS: BP 153/72
[2018-03-31] MEDS: GABAPENTIN 100 MG CAP PO SCH (09:28)
[2018-03-31] MEDS: CARVEDILOL 12.5 MG TAB PO SCH (09:28)
[2018-03-31] MEDS: NYSTATIN 15 GM POWDER UD BTL TOP SCH (09:28)
[2018-03-31] MEDS: ALLOPURINOL 100 MG TAB PO SCH (09:28)
[2018-03-31] MEDS: MEROPENEM 500 MG VIAL IV SCH (09:28)
[2018-03-31] MEDS: PANTOPRAZOLE SOD 40 MG TABEC PO SCH (09:28)
[2018-03-31 11:30] VITALS: BP 147/64
[2018-03-31] MEDS: ACETAMINOPHEN/CODEINE 300MG - 30MG TAB PO PRN (12:38)
[2018-03-31] MEDS: DILTIAZEM HCL 180 MG CAP CD PO SCH (12:38)
[2018-03-31] MEDS ORDERED: CIPRO500 MG PO (13:30)
[2018-03-31] MEDS ORDERED: DOXYCYCLINE HY100 MG PO (13:31)
== END 2018-03-31 15:00 | DRG 291 ==
LOC: ER 16:22 → MED/SURG3 23:00
PROVIDERS: ADMIT Family Medicine; ATTEND Family Medicine
DX: I13.0 Hypertensive heart and chronic kidney disease with heart failure and stage 1 through stage 4 chronic kidney disease, or unspecified chronic kidney disease (principal); I50.33 Acute on chronic diastolic (congestive) heart failure; N17.9 Acute kidney failure, unspecified; L03.116 Cellulitis of left lower limb; L03.115 Cellulitis of right lower limb; A52.16 Charcot's arthropathy (tabetic); N18.3 Chronic kidney disease, stage 3 (moderate); J44.9 Chronic obstructive pulmonary disease, unspecified; E66.01 Morbid (severe) obesity due to excess calories; Z68.33 Body mass index [BMI] 33.0-33.9, adult; I89.0 Lymphedema, not elsewhere classified; M10.9 Gout, unspecified; I25.10 Atherosclerotic heart disease of native coronary artery without angina pectoris; E78.5 Hyperlipidemia, unspecified; D63.8 Anemia in other chronic diseases classified elsewhere; B96.5 Pseudomonas (aeruginosa) (mallei) (pseudomallei) as the cause of diseases classified elsewhere; B96.4 Proteus (mirabilis) (morganii) as the cause of diseases classified elsewhere; B95.2 Enterococcus as the cause of diseases classified elsewhere; E87.6 Hypokalemia; I48.91 Unspecified atrial fibrillation; Z79.01 Long term (current) use of anticoagulants
CPT/HCPCS: 36415; 71045; 80048; 80053; 83735; 83880; 84100; 85025; 85610; 87071; 87186; 87205; 96376; 99284; J0692; J1940; J2185; J2270; J3370; J3480; J7050

== ENCOUNTER 2018-05-16 16:37 | Inpatient (IN) | payer MEDICARE ==
[~2018-05-16] VITALS: Ht 175.3 cm; Wt 99.9 kg
[~2018-05-16 16:37] MED LIST changes: +CIPRO500 MG PO; +DOXYCYCLINE HY100 MG PO
[2018-05-16] MEDS ORDERED: BUMETANIDE1 MG PO (18:07)
[2018-05-16] MEDS ORDERED: MINOCYCLINE HC100 MG PO (18:07)
[2018-05-16] MEDS ORDERED: ALLOPURINOL300 MG PO (18:07)
[2018-05-16] MEDS ORDERED: WARFARIN SODIUM2 MG PO (18:07)
[2018-05-16] MEDS ORDERED: GABAPENTIN300 MG PO (18:07)
[2018-05-16 18:08] LABS: BASOPHILS % 0.5 % (0.0-1.0); EOSINOPHILS # (AUTO) 0.1 (0.0-0.4); EOSINOPHILS % 1.6 % (0.0-6.0); HEMATOCRIT 32.2 % (34.2-44.1); HEMOGLOBIN 10.2 g/dL (12.0-16.0); LYMPHOCYTES # (AUTO) 1.1 (1.0-3.2); LYMPHOCYTES % 13.3 % (18.0-39.1); MEAN CORPUSCULAR HEMOGLOBIN 26.2 pg (28-32); MEAN CORPUSCULAR HGB CONC 31.7 g/dL (31-35); MEAN CORPUSCULAR VOLUME 82.8 fL (81-99); MONOCYTES # (AUTO) 1.3 (0.2-0.8); MONOCYTES % 15.8 % (4.4-11.3); NEUTROPHILS # (AUTO) 5.4 (2.1-6.9); NEUTROPHILS % 68.4 % (38.7-80.0); PLATELET COUNT 291 x10e3/uL (140-360); RED BLOOD COUNT 3.89 x10e6/uL (3.6-5.1); RED CELL DISTRIBUTION WIDTH 21.1 % (11.7-14.4)
[2018-05-16 18:16] LABS: INR 8.95; PARTIAL THROMBOPLASTIN TIME 106.9 seconds (23.8-35.5); PROTHROMBIN TIME 68.7 seconds (11.9-14.5)
[2018-05-16 18:23] LABS: ALBUMIN 2.8 g/dL (3.5-5.0); ANION GAP 16.3 mmol/L (8-16); CALCIUM 8.7 mg/dL (8.4-10.2); CREATININE, SERUM 1.94 mg/dL (0.57-1.11); POTASSIUM 3.3 mmol/L (3.5-5.1)
--- NOTE | 2018-05-16 19:54 | Diagnostic Imaging Report ---
Examination: CT head without contrast Clinical Indication: Weakness; fatigue. Technique: Transaxial noncontrast images from the skull base through the vertex were obtained. Sagittal and coronal reformatted images were done. Comparison: None. Findings: Scalp: No abnormalities. Bones: Intact. No fractures. No blastic or lytic lesions. Brain sulci: Mild volume loss for patient's age. Ventricles: No hydrocephalus. Extra-axial space: No abnormalities. Parenchyma: There are patchy areas of low-attenuation within subcortical and periventricular white matter, nonspecific, but could represent microvascular ischemic disease. No masses, hemorrhage, or acute or chronic cortical based vascular insults. Suprasellar region: No abnormalities. Craniocervical junction: The foramen magnum is patent. No Chiari one malformation. Incidental findings: Atherosclerotic calcification of the cavernous and supraclinoid internal carotid and V4 segments of the bilateral vertebral arteries. Impression: 1. No acute intracranial finding. 2. Mild chronic microvascular ischemic change and mild volume loss. Signed by: Dr. Julee Perez M.D. on 05/16/2018 7:51 PM
--- NOTE | 2018-05-16 20:09 | Diagnostic Imaging Report ---
ADDENDUM #1 Moderate right pleural fluid. Signed by: Dr. Julee Perez M.D. on 05/16/2018 8:21 PM ORIGINAL REPORT Examination: CT CERVICAL SPINE WITHOUT CONTRAST HISTORY: Weakness; fatigue. COMPARISON:None. TECHNIQUE: Multidetector helical axial images were obtained without contrast from the foramen magnum to T1. Coronal and sagittal reformatted images were done. Bone and soft tissue windows were evaluated. FINDINGS: Alignment:Normal alignment with hyperlordosis. Vertebrae: Normal height and density. No acute fracture, infection or neoplasm. Disc space heights: Normal height. Caliber of spinal canal: Developmentally normal. Posterior fossa and craniocervical junction: Foramen magnum patent. No Chiari 1 malformation. Soft tissues: Atherosclerotic calcification of the carotid bifurcations. Degenerative changes: Severe bilateral facet arthropathy from C2 through C7. No disc bulge/ herniation or canal stenosis. IMPRESSION: No acute abnormalities. Signed by: Dr. Julee Perez M.D. on 05/16/2018 8:06 PM
[2018-05-16 20:16] LABS: BILIRUBIN,URINE NEGATIVE (NEGATIVE); CLARITY,URINE CLEAR (CLEAR); COLOR,URINE YELLOW (YELLOW); KETONES,URINE NEGATIVE (NEGATIVE); LEUKOCYTE ESTERASE ,URINE NEGATIVE (NEGATIVE); NITRITE,URINE NEGATIVE (NEGATIVE); PROTEIN,URINE DIPSTICK NEGATIVE (NEGATIVE); URINE UROBILINOGEN 0.2 mg/dL (0.2 - 1)
--- NOTE | 2018-05-16 20:17 | Diagnostic Imaging Report ---
EXAM: CT Chest, Abdomen and Pelvis WITHOUT contrast INDICATION: \S\WEAKNESS AND FATIGUE WITH ELEVATED CLOTTING TIMES \S\[id number] \S\1900 \S\Y COMPARISON: None. TECHNIQUE: Chest, abdomen and pelvis were scanned utilizing a multidetector helical scanner from the lung apex to the pubic symphysis without administration of IV contrast. Coronal and sagittal reformations were obtained. Routine protocol was performed. IV CONTRAST: None ORAL CONTRAST: None COMPLICATIONS: None RADIATION DOSE: Total DLP: 1009.54 mGy*cm Estimated effective dose: (DLP x 0.015 x size factor) mSv CTDIvol has been reviewed. It is below the limits set by the Radiation Protocol Committee (RPC). FINDINGS: Absence of intravenous contrast decreases sensitivity for detection of focal lesions and vascular pathology. LINES and TUBES: None. LUNGS AND AIRWAYS: The lungs are unremarkable. Airways are normal. PLEURA: Small right pleural effusion. Trace left pleural effusion. HEART AND MEDIASTINUM: The thyroid gland is normal. No mediastinal, hilar or axillary lymphadenopathy. Mild cardiomegaly. Mitral annular, aortic annular,, coronary artery, and aortic calcifications.. There is no pericardial effusion. HEPATOBILIARY: Mild nodularity of the liver contour. No focal hepatic lesions. No biliary ductal dilation. GALLBLADDER: Cholecystectomy clips. SPLEEN: No splenomegaly. PANCREAS: No focal masses or ductal dilatation. ADRENALS: No adrenal nodules KIDNEYS/URETERS: Multifocal renal scarring, right greater than left. No hydronephrosis. No cystic or solid mass lesions. No stones. GI TRACT: No abnormal distention, wall thickening, or evidence of bowel obstruction. There are diverticula within the colon without evidence of diverticulitis. Appendix is not clearly identified. There is however no fat stranding or adenopathy in the right lower quadrant to suggest appendicitis. PELVIC ORGANS/BLADDER: Questionable endometrial thickening with ill-defined hypoattenuating area in the central aspect of the uterus. Evaluation limited without intravenous contrast. A 2.8 cm structure abutting the uterus may represent a pedunculated fibroid or the ovary. Left ovary not visualized. LYMPH NODES: No lymphadenopathy. VESSELS: There is severe atherosclerotic disease in the aorta and major arterial branches. Right renal artery stent. Intraluminal calcifications in the aorta may represent partially calcified thrombus. Limited evaluation without contrast. PERITONEUM / RETROPERITONEUM: No free air or fluid. BONES: Mild superior endplate compression of T12. Leftward convex curvature of the lumbar spine. SOFT TISSUES: Left deltoid intramuscular lipoma measures 1.8 cm in transverse dimension IMPRESSION: 1. Mild nodularity of the liver contour which could reflect early cirrhosis. Recommend right upper quadrant ultrasound for confirmation. 2. Questionable endometrial thickening. Limited evaluation without intravenous contrast. Recommend pelvic ultrasound for further evaluation. 3. Colonic diverticulosis. 4. Small right and trace left pleural effusions. Signed by: DR. Augustus Duncan MD on 05/16/2018 8:13 PM
[2018-05-16 20:27] LABS: EPITHELIAL CELLS,URINE MANY /LPF; RBC,URINE 0-5 /HPF (0-5); WBC,URINE (MAN) 0-5 /HPF (0-5)
[2018-05-16 20:28] LABS: MUCUS,URINE RARE (RARE)
[2018-05-16] MEDS ORDERED: PHYTONADIONE 1 MG/0.5 ML AMP IM NR (20:45)
[2018-05-16] MEDS ORDERED: SODIUM CHLORIDE FLUSH 10 ML SYR INJ PRN (21:00)
[2018-05-16] MEDS ORDERED: MORPHINE SULFATE 2 MG/ML SYR IV PRN (21:00)
[2018-05-16] MEDS ORDERED: ONDANSETRON HCL INJ 2 MG/ML VIAL IV PRN (21:00)
[2018-05-16] MEDS ORDERED: ALBUTEROL SULF 0.083% NEB SOLN 3 ML NEB INH PRN (21:30)
[2018-05-16] MEDS ORDERED: NITROGLYCERIN 0.4 MG SUBL SL PRN (21:30)
[2018-05-16] MEDS ORDERED: SODIUM CHLORIDE 0.9% 250ML 250 ML ONE (21:35)
[2018-05-16 22:26] VITALS: BP 127/61
[2018-05-17] VITALS (8 sets, daily range): BP systolic 107–152; BP diastolic 57–79
[2018-05-17] MEDS ORDERED: SODIUM CHLORIDE 0.9% 250ML 250 ML ONE (01:36)
[2018-05-17] MEDS: BREO ELLIPTA INH SCH (06:00)
[2018-05-17] MEDS ORDERED: POTASSIUM CHLORIDE 20 MEQ TAB CR PO STA (06:47)
[2018-05-17 07:23] LABS: BASOPHILS % 0.3 % (0.0-1.0); EOSINOPHILS # (AUTO) 0.1 (0.0-0.4); EOSINOPHILS % 1.9 % (0.0-6.0); HEMATOCRIT 30.6 % (34.2-44.1); HEMOGLOBIN 9.5 g/dL (12.0-16.0); LYMPHOCYTES # (AUTO) 1.1 (1.0-3.2); LYMPHOCYTES % 16.5 % (18.0-39.1); MEAN CORPUSCULAR HEMOGLOBIN 25.7 pg (28-32); MEAN CORPUSCULAR VOLUME 82.9 fL (81-99); MONOCYTES # (AUTO) 1.1 (0.2-0.8); MONOCYTES % 17.6 % (4.4-11.3); NEUTROPHILS # (AUTO) 4.1 (2.1-6.9); NEUTROPHILS % 63.4 % (38.7-80.0); PLATELET COUNT 253 x10e3/uL (140-360); RED BLOOD COUNT 3.69 x10e6/uL (3.6-5.1)
[2018-05-17 07:31] LABS: INR 3.75; PROTHROMBIN TIME 34.8 seconds (11.9-14.5)
[2018-05-17 07:32] LABS: PARTIAL THROMBOPLASTIN TIME 72.8 seconds (23.8-35.5)
[2018-05-17 07:44] LABS: ALBUMIN 2.7 g/dL (3.5-5.0); ANION GAP 15.4 mmol/L (8-16); CALCIUM 8.6 mg/dL (8.4-10.2); CREATININE, SERUM 1.86 mg/dL (0.57-1.11); POTASSIUM 3.4 mmol/L (3.5-5.1)
--- NOTE | 2018-05-17 08:06 | History and Physical ---
This is an 83-year-old female with a history of COPD, history of hypertension, history of chronic atrial fibrillation persistent, history of gout and history of chronic cellulitis. She was in her usual state of health until about a month prior to admission. The patient was admitted to another local hospital and was given antibiotics manager support. The patient suffered some dyspnea, nausea, vomiting, diarrhea and weakness since then. The patient describes all these symptoms for the last 1 month; but for the last 1 week, her lethargy has been increasing, and also diarrhea has been increasing. The patient has had these chronic symptoms for the last 1 month. The patient also noticed that her right lower extremity had a scab which fell off, and the patient had incessant bleeding. She came into the emergency room and was found to have Coumadin toxicity, and the patient was admitted for the same. PAST MEDICAL HISTORY 1. History of gout. 2. History of congestive heart failure. 3. History of chronic cellulitis of lower extremity. 4. History of COPD. 5. History of hypertension. 6. History of chronic ingestion of anticoagulation. 7. Hyperlipidemia. MEDICINES 1. Albuterol nebulizers 3 times a day p.r.n. 2. Allopurinol 300 mg once a day. 3. Bumex 1 mg daily. 4. Carvedilol 12.5 mg daily. 5. Colchicine 0.6. 6. Diltiazem 360 mg 2 tablets daily. 7. Lasix 40 mg twice a day. 8. Gabapentin 300 three times a day. 9. Lovastatin 20 mg. 10. Minocycline 100 mg daily. 11. Nitroglycerin 0.4 as needed. 12. Pantoprazole 40 mg daily. 13. Potassium chloride 20. 14. Warfarin 2 mg daily. 15. Breo 200 mcg inhalation daily. 16. Lidocaine patch as needed. SURGICAL HISTORY 1. History of breast cancer with left mastectomy. 2. History of cholecystectomy. 3. Cataract surgery. FAMILY HISTORY: Alzheimer's in father. Alzheimer's in mother. Family history of cardiac disease, too. SOCIAL HISTORY: No EtOH . No IV drug abuse. No smoking at this time, ex-smoker. Living with son, who is primary seed buyer, also [id number]. REVIEW OF SYSTEMS: Negative for chest pain. No shortness of breath. Positive fatigue. Positive for nausea. Positive for vomiting. Positive for diarrhea. No constipation or rectal bleeding. No hematochezia. No hematemesis. Positive for bleeding in the lower extremity as mentioned above. PHYSICAL EXAMINATION GENERAL: The patient is alert and oriented times 3. Sleepy. VITALS: Temperature 97.2. Blood pressure is 152/65. Pulse oximetry is 93% on room air. HEENT: Normocephalic and atraumatic. The pupils react to light and accommodation. CV: S1 and S2 normal, regular rate and rhythm. ABDOMEN: Nontender and nondistended. EXTREMITIES: Positive for erythema. Positive for increased swelling. Positive for multiple blisters on the lower extremities. Positive for chronic atrophic changes. Also, right lower extremity with a scabbing blister with oozing of blood. Examination of the patient's bilateral shoulders are also painful and tender with limited range of motion, painful arc. LABORATORY VALUES: Initial white count 7.9, hemoglobin 10.2, hematocrit 32.2, neutrophil count 68.4. Chemistries: Sodium 142, potassium 3.3, BUN 38, creatinine 1.94. The patient has history of chronic kidney disease. Glucose is 124. BNP was 858.3. Albumin was 2.8, and total protein was 5.7. Amylase and lipase were normal. Coags: PT 68.7, INR 8.95, aPTT 106.9. IMAGING STUDIES: Abdominal CT pelvis shows mild nodularity of the liver, could reflect early cirrhosis, questionable endometrial thickening, colonic diverticulosis, small right and trace left pleural effusion. Brain CT: No acute intracranial findings. Cervical spine: Several bilateral facet arthropathy from C2 through C7. Chest CT shows no mediastinal, hilar or axillary lymphadenopathy. Mild cardiomegaly. No pericardial effusion. ASSESSMENT AND PLAN: Coumadin toxicity. The patient has been given 2 units of FFPs and also typed and crossed. The patient also has been given vitamin K 1 mg. Will continue to monitor the patient. Continue PT and INR. Her potassium was slightly low. Will go ahead and replace it at this time. Restart her on her home medications for her acute kidney injury and chronic kidney injury. Will continue watching her BUN and creatinine trended. The patient also has diarrhea. We will see if there is any C. diff. We will go ahead and culture for C. diff. Replace potassium. The patient has been chronically ill. We will discuss with the family the need for half-way facility if needed. For further information, look in the chart. Will continue monitoring the warfarin toxicity and will keep the family abreast and updated. Job#: [id number] ALISIA
[2018-05-17] MEDS: CARVEDILOL 12.5 MG TAB PO SCH ×2 (09:00→17:00)
[2018-05-17] MEDS ORDERED: FUROSEMIDE 40 MG TAB PO SCH (09:00)
[2018-05-17] MEDS: PANTOPRAZOLE SOD 40 MG TABEC PO SCH (09:00)
[2018-05-17] MEDS: POTASSIUM CHLORIDE 20 MEQ TAB CR PO SCH (09:00)
[2018-05-17] MEDS: BUMETANIDE 1 MG TAB PO SCH (09:00)
[2018-05-17] MEDS: MINOCYCLINE HCL 50 MG CAP PO SCH (09:00)
[2018-05-17] MEDS: ALLOPURINOL 300 MG TAB PO SCH (09:00)
[2018-05-17] MEDS: COLCHICINE 0.6 MG TAB PO SCH (09:00)
[2018-05-17] MEDS: GABAPENTIN 300 MG CAP PO SCH ×3 (09:00→21:23)
[2018-05-17] MEDS ORDERED: POTASSIUM CHLORIDE 20 MEQ TAB CR PO SCH (09:00)
[2018-05-17] MEDS: DILTIAZEM HCL 180 MG CAP CD PO SCH (13:15)
[2018-05-17] MEDS: TRAMADOL HCL 50 MG TAB PO PRN ×2 (14:45→21:23)
[2018-05-17] MEDS ORDERED: WARFARIN SOD 2 MG TAB PO SCH (21:00)
[2018-05-17] MEDS: SIMVASTATIN 20 MG TAB PO SCH (21:23)
[2018-05-17] MEDS: FUROSEMIDE 40 MG TAB PO SCH (21:24)
[2018-05-18] VITALS (8 sets, daily range): BP systolic 122–145; BP diastolic 59–81
[2018-05-18 04:52] LABS: BASOPHILS % 0.4 % (0.0-1.0); EOSINOPHILS # (AUTO) 0.2 (0.0-0.4); HEMATOCRIT 29.6 % (34.2-44.1); LYMPHOCYTES % 15.2 % (18.0-39.1); MEAN CORPUSCULAR HEMOGLOBIN 25.4 pg (28-32); MEAN CORPUSCULAR HGB CONC 30.4 g/dL (31-35); MEAN CORPUSCULAR VOLUME 83.6 fL (81-99); MONOCYTES # (AUTO) 1.2 (0.2-0.8); MONOCYTES % 17.8 % (4.4-11.3); NEUTROPHILS # (AUTO) 4.3 (2.1-6.9); NEUTROPHILS % 63.2 % (38.7-80.0); PLATELET COUNT 253 x10e3/uL (140-360); RED BLOOD COUNT 3.54 x10e6/uL (3.6-5.1); RED CELL DISTRIBUTION WIDTH 21.1 % (11.7-14.4)
[2018-05-18 05:08] LABS: ANION GAP 15.7 mmol/L (8-16); CALCIUM 8.3 mg/dL (8.4-10.2); CREATININE, SERUM 1.93 mg/dL (0.57-1.11); POTASSIUM 3.7 mmol/L (3.5-5.1)
[2018-05-18] MEDS: BREO ELLIPTA INH SCH (06:00)
[2018-05-18 07:14] LABS: INR 3.84; PROTHROMBIN TIME 35.5 seconds (11.9-14.5)
[2018-05-18] MEDS ORDERED: WARFARIN SOD 2 MG TAB PO SCH ×2 (09:00→17:00)
[2018-05-18] MEDS: BUMETANIDE 1 MG TAB PO SCH (09:20)
[2018-05-18] MEDS: PANTOPRAZOLE SOD 40 MG TABEC PO SCH (09:20)
[2018-05-18] MEDS: COLCHICINE 0.6 MG TAB PO SCH (09:21)
[2018-05-18] MEDS: DILTIAZEM HCL 180 MG CAP CD PO SCH (09:21)
[2018-05-18] MEDS: POTASSIUM CHLORIDE 20 MEQ TAB CR PO SCH (09:22)
[2018-05-18] MEDS: ALLOPURINOL 300 MG TAB PO SCH (09:22)
[2018-05-18] MEDS: CARVEDILOL 12.5 MG TAB PO SCH ×2 (09:22→17:24)
[2018-05-18] MEDS: MINOCYCLINE HCL 50 MG CAP PO SCH (09:22)
[2018-05-18] MEDS: FUROSEMIDE 40 MG TAB PO SCH ×2 (09:22→17:24)
[2018-05-18] MEDS: GABAPENTIN 300 MG CAP PO SCH ×3 (09:22→22:18)
[2018-05-18] MEDS ORDERED: PHYTONADIONE 10 MG/ML AMP SQ ONE (10:30)
[2018-05-18] MEDS: TRAMADOL HCL 50 MG TAB PO PRN ×2 (11:22→22:19)
[2018-05-18] MEDS: SIMVASTATIN 20 MG TAB PO SCH (22:18)
[2018-05-19 00:34] VITALS: BP 148/69
[2018-05-19 00:37] VITALS: BP 148/69
[2018-05-19 05:43] VITALS: BP 136/58
[2018-05-19 05:45] VITALS: BP 138/58
[2018-05-19 05:49] LABS: INR 2.61; PROTHROMBIN TIME 26.2 seconds (11.9-14.5)
[2018-05-19] MEDS: BREO ELLIPTA INH SCH (06:00)
[2018-05-19 08:00] VITALS: BP 149/81
[2018-05-19] MEDS: PANTOPRAZOLE SOD 40 MG TABEC PO SCH (08:10)
[2018-05-19] MEDS: BUMETANIDE 1 MG TAB PO SCH (08:10)
[2018-05-19] MEDS: COLCHICINE 0.6 MG TAB PO SCH (08:11)
[2018-05-19] MEDS: CARVEDILOL 12.5 MG TAB PO SCH (08:11)
[2018-05-19] MEDS: FUROSEMIDE 40 MG TAB PO SCH (08:11)
[2018-05-19] MEDS: MINOCYCLINE HCL 50 MG CAP PO SCH (08:11)
[2018-05-19] MEDS: POTASSIUM CHLORIDE 20 MEQ TAB CR PO SCH (08:11)
[2018-05-19] MEDS: GABAPENTIN 300 MG CAP PO SCH (08:12)
[2018-05-19] MEDS: DILTIAZEM HCL 180 MG CAP CD PO SCH (08:12)
[2018-05-19] MEDS: ALLOPURINOL 300 MG TAB PO SCH (08:12)
[2018-05-19 12:03] VITALS: BP 135/63
== END 2018-05-19 15:31 | disposition home health service (06) | DRG 641 ==
LOC: ER 16:37 → ERHOLD 21:01 → MED/SURG2 22:34
PROVIDERS: ADMIT Family Medicine; ATTEND Family Medicine
PROC: 30243K1 Transfusion of Nonautologous Frozen Plasma into Central Vein, Percutaneous Approach (ICD-10-PCS; principal; 2018-05-16)
DX: E87.6 Hypokalemia (principal); N17.9 Acute kidney failure, unspecified; I13.0 Hypertensive heart and chronic kidney disease with heart failure and stage 1 through stage 4 chronic kidney disease, or unspecified chronic kidney disease; T45.515A Adverse effect of anticoagulants, initial encounter; K57.90 Diverticulosis of intestine, part unspecified, without perforation or abscess without bleeding; K74.60 Unspecified cirrhosis of liver; Z79.4 Long term (current) use of insulin; E11.51 Type 2 diabetes mellitus with diabetic peripheral angiopathy without gangrene; M54.2 Cervicalgia; J44.9 Chronic obstructive pulmonary disease, unspecified; I50.9 Heart failure, unspecified; N18.9 Chronic kidney disease, unspecified; I48.2 Chronic atrial fibrillation; Z79.01 Long term (current) use of anticoagulants; R23.8 Other skin changes; Z72.0 Tobacco use; R19.7 Diarrhea, unspecified; R23.4 Changes in skin texture; Z91.14 Patient's other noncompliance with medication regimen; M10.9 Gout, unspecified; E11.22 Type 2 diabetes mellitus with diabetic chronic kidney disease
CPT/HCPCS: 36415; 36430; 70450; 71250; 72125; 74176; 80048; 80053; 81001; 82150; 82550; 82553; 83690; 83880; 84484; 85025; 85610; 85730; 86850; 86900; 93005; 99284; J2270; J3430; J7050; P9017

== ENCOUNTER → 2018-06-09 | Outpatient (CLI) | payer MEDICARE ==
[~2018-06-09] MED LIST changes: +ALLOPURINOL300 MG PO; +BUMETANIDE1 MG PO; +GABAPENTIN300 MG PO; +MINOCYCLINE HC100 MG PO; +WARFARIN SODIUM2 MG PO
--- NOTE | 2018-06-09 15:44 | Diagnostic Imaging Report ---
TECHNIQUE: Magnetic resonance imaging of the RIGHT SHOULDER was performed WITHOUT injected contrast. COMPARISON: None available. HISTORY: Right shoulder pain FINDINGS: MUSCLES AND TENDONS: Rotator Cuff: Tendons: Complex rotator cuff tearing. Full thickness tear of the anterior supraspinatus tendon (with approximately 3 cm retraction) with posterior propagation as a partial-thickness articular sided tear into the infraspinatus tendon. Additional bursal surface tearing. Full-thickness tear of the superior bundle of the subscapularis with retraction measuring approximately 2.5 cm Muscles: Muscle atrophy predominantly involving the subscapularis. Biceps Tendon: The long head of the biceps tendon is intact and within the intertubercular groove. GLENOHUMERAL JOINT: Glenoid Labrum: Superior labral fraying and posterior labral tear. Articular Cartilage: Partial thickness cartilage loss. AC JOINT AND ACROMION: Minimal hypertrophic degenerative changes of the acromioclavicular joint. Small subacromial spur. BONE: Cystic change at the humeral head. No fracture. No acute fracture. SOFT TISSUES: Subacromial subdeltoid bursal fluid with complex nodular synovitis. Lipoma within the deltoid. IMPRESSION: Complex tearing of the rotator cuff with full-thickness component to the anterior supraspinatus and superior subscapularis with additional partial thickness tearing. Signed by: Dr. Gurpreet Alvarez M.D. on 06/09/2018 3:41 PM
--- NOTE | 2018-06-09 18:08 | Diagnostic Imaging Report ---
History: Shoulder pain Comparison studies: Cervical spine CT on 05/16/2019 Technique: Sagittal T1, T2 and IR, axial T2 and axial gradient echo Intravenous contrast: None Findings: Alignment: Increased cervical lordosis is centered at C4 No scoliosis. Cervicomedullary junction: No abnormalities. Patent foramen magnum. Soft tissues: No T2 hyperintense inflammatory changes. Spinal cord: Normal in size and signal from the foramen magnum through T1. The cord is angulated anteriorly at C3-4 due to the previously described increased lordosis. Vertebrae: Normal in height and signal intensity. No fractures, infection or neoplasm. Degenerative changes: C2-C3: Mild bilateral facet arthrosis. Patent spinal canal and foramina. No disc herniation. C3-C4: Moderate right foraminal stenosis due to moderate facet and uncovertebral arthrosis. Patent left foramen in spite of moderate left facet arthrosis. Patent spinal canal. No disc herniation. C4-C5: Severe bilateral facet arthrosis. Patent spinal canal and foramina. No disc herniation. C5-C6: Severe bilateral facet arthrosis. Patent spinal canal and foramina. No disc herniation. C6-C7: Moderate bilateral facet arthrosis. Patent spinal canal and foramina. No disc herniation C7-T1: No abnormalities. IMPRESSION: 1. Increased lordosis centered at C4-5. 2. Facet arthrosis throughout the cervical region is worst bilaterally from C3 to C6 3. Moderate right foraminal stenosis at C3-4 due to facet and uncovertebral arthrosis. 4. Patent spinal canal. No disc herniation. 5. No changes when compared to the C-spine CT on 05/16/2018 Signed by: Dr. Salty Ernst M.D. on 06/09/2018 6:05 PM
== END ==
LOC: MRI 13:26
PROVIDERS: ATTEND Family Medicine
DX: M50.11 Cervical disc disorder with radiculopathy, high cervical region (principal); M19.012 Primary osteoarthritis, left shoulder
CPT/HCPCS: 72141

== ENCOUNTER 2018-07-22 14:51 | Observation (INO) | payer MEDICARE ==
[~2018-07-22] VITALS: Ht 175.3 cm; Wt 102.1 kg
[2018-07-22 18:18] LABS: BASOPHILS % 0.4 % (0.0-1.0); EOSINOPHILS # (AUTO) 0.4 (0.0-0.4); EOSINOPHILS % 4.9 % (0.0-6.0); HEMATOCRIT 39.1 % (34.2-44.1); LYMPHOCYTES # (AUTO) 1.5 (1.0-3.2); LYMPHOCYTES % 19.2 % (18.0-39.1); MEAN CORPUSCULAR HEMOGLOBIN 26.4 pg (28-32); MEAN CORPUSCULAR HGB CONC 30.7 g/dL (31-35); MEAN CORPUSCULAR VOLUME 86.1 fL (81-99); MONOCYTES % 13.7 % (4.4-11.3); NEUTROPHILS # (AUTO) 4.7 (2.1-6.9); NEUTROPHILS % 61.7 % (38.7-80.0); PLATELET COUNT 231 x10e3/uL (140-360); RED BLOOD COUNT 4.54 x10e6/uL (3.6-5.1); RED CELL DISTRIBUTION WIDTH 20.4 % (11.7-14.4)
--- NOTE | 2018-07-22 18:35 | Diagnostic Imaging Report ---
EXAMINATION: CHEST SINGLE (PORTABLE) INDICATION: \S\SOB \S\[id number] \S\1815 COMPARISON: 11/21/2017 FINDINGS: AP view Patient's chin obscures bilateral apices. TUBES and LINES: None. LUNGS: Lungs are well inflated. Mild bibasilar hazy opacities. PLEURA: No pneumothorax. Trace bilateral pleural effusions suspected. HEART AND MEDIASTINUM: The cardiac silhouette is enlarged. Aorta is calcified and tortuous. BONES AND SOFT TISSUES: No acute osseous lesion. Soft tissues are unremarkable. UPPER ABDOMEN: No free air under the diaphragm. IMPRESSION: Mild bibasilar hazy opacities, likely subsegmental atelectasis. Underlying infiltrate cannot be excluded. Trace bilateral pleural effusions suspected. Signed by: Dr. Jose Luis Perez MD on 07/22/2018 6:30 PM
[2018-07-22 18:45] LABS: ALBUMIN 3.4 g/dL (3.5-5.0); ALBUMIN/GLOBULIN RATIO 0.9 (0.8-2.0); CALCIUM 9.3 mg/dL (8.4-10.2); CREATININE, SERUM 1.78 mg/dL (0.57-1.11); MAGNESIUM 1.9 MG/DL (1.3-2.1)
[2018-07-22] MEDS ORDERED: OMEPRAZOLE40 MG PO (19:10)
[2018-07-22] MEDS ORDERED: ENOXAPARIN SOD INJ 40 MG/0.4 ML SYR SC SCH (21:00)
[2018-07-22 21:20] VITALS: BP 139/88
[2018-07-22] MEDS: ENOXAPARIN SOD INJ 40 MG/0.4 ML SYR SC SCH (22:01)
[2018-07-22 22:25] VITALS: BP 139/88
[2018-07-22 22:37] VITALS: BP 139/88
[2018-07-23] VITALS (9 sets, daily range): BP systolic 128–173; BP diastolic 63–98
[2018-07-23 05:25] LABS: BASOPHILS % 0.5 % (0.0-1.0); EOSINOPHILS # (AUTO) 0.3 (0.0-0.4); EOSINOPHILS % 4.7 % (0.0-6.0); HEMATOCRIT 34.2 % (34.2-44.1); HEMOGLOBIN 10.4 g/dL (12.0-16.0); LYMPHOCYTES # (AUTO) 1.2 (1.0-3.2); LYMPHOCYTES % 17.4 % (18.0-39.1); MEAN CORPUSCULAR HEMOGLOBIN 26.1 pg (28-32); MEAN CORPUSCULAR HGB CONC 30.4 g/dL (31-35); MEAN CORPUSCULAR VOLUME 85.9 fL (81-99); MONOCYTES % 14.8 % (4.4-11.3); NEUTROPHILS # (AUTO) 4.1 (2.1-6.9); NEUTROPHILS % 61.8 % (38.7-80.0); PLATELET COUNT 172 x10e3/uL (140-360); RED BLOOD COUNT 3.98 x10e6/uL (3.6-5.1); RED CELL DISTRIBUTION WIDTH 20.1 % (11.7-14.4)
[2018-07-23] MEDS ORDERED: NITROGLYCERIN 0.4 MG SUBL SL PRN (05:30)
[2018-07-23 05:52] LABS: ALBUMIN 2.8 g/dL (3.5-5.0); ANION GAP 15.5 mmol/L (8-16); CALCIUM 8.7 mg/dL (8.4-10.2); CREATININE, SERUM 1.69 mg/dL (0.57-1.11); MAGNESIUM 1.3 MG/DL (1.3-2.1); POTASSIUM 3.5 mmol/L (3.5-5.1)
[2018-07-23] MEDS ORDERED: BUMETANIDE 1 MG TAB PO SCH (09:00)
[2018-07-23] MEDS ORDERED: FAMOTIDINE 20 MG/2 ML VIAL IV SCH (09:00)
[2018-07-23] MEDS: DILTIAZEM HCL 180 MG CAP ER PO SCH (09:23)
[2018-07-23] MEDS: COLCHICINE 0.6 MG TAB PO SCH (09:25)
[2018-07-23] MEDS: CARVEDILOL 12.5 MG TAB PO SCH ×2 (09:25→17:43)
[2018-07-23] MEDS: ENOXAPARIN SOD INJ 40 MG/0.4 ML SYR SC SCH ×2 (09:26→22:00)
[2018-07-23] MEDS: ALLOPURINOL 300 MG TAB PO SCH (09:26)
[2018-07-23] MEDS: PANTOPRAZOLE SOD 40 MG TABEC PO SCH ×2 (09:26→17:43)
[2018-07-23] MEDS: GABAPENTIN 300 MG CAP PO SCH ×3 (09:26→20:50)
[2018-07-23] MEDS: FUROSEMIDE 40 MG TAB PO SCH ×3 (09:26→20:50)
[2018-07-23] MEDS: BUMETANIDE 1 MG TAB PO SCH (09:40)
[2018-07-23] MEDS: FAMOTIDINE 20 MG/2 ML VIAL IV SCH ×2 (09:40→17:42)
[2018-07-23] MEDS: TRAMADOL HCL 50 MG TAB PO PRN (18:24)
[2018-07-23] MEDS: PRAVASTATIN 20 MG TAB PO SCH (20:50)
[2018-07-23 21:09] LABS: INR 2.44; PROTHROMBIN TIME 28.3 seconds (11.9-14.5)
[2018-07-23] MEDS: WARFARIN SOD 2 MG TAB PO SCH (22:00)
[2018-07-24] VITALS (8 sets, daily range): BP systolic 123–157; BP diastolic 64–94
[2018-07-24] MEDS: GABAPENTIN 300 MG CAP PO SCH ×3 (08:39→20:50)
[2018-07-24] MEDS: DILTIAZEM HCL 180 MG CAP ER PO SCH (08:39)
[2018-07-24] MEDS: PANTOPRAZOLE SOD 40 MG TABEC PO SCH ×2 (08:39→17:02)
[2018-07-24] MEDS: FUROSEMIDE 40 MG TAB PO SCH ×3 (08:39→20:50)
[2018-07-24] MEDS: COLCHICINE 0.6 MG TAB PO SCH (08:39)
[2018-07-24] MEDS: CARVEDILOL 12.5 MG TAB PO SCH ×2 (08:39→17:02)
[2018-07-24] MEDS: ALLOPURINOL 300 MG TAB PO SCH (08:39)
[2018-07-24] MEDS: FAMOTIDINE 20 MG/2 ML VIAL IV SCH ×2 (08:39→17:02)
[2018-07-24] MEDS: BUMETANIDE 1 MG TAB PO SCH (08:39)
[2018-07-24] MEDS: ENOXAPARIN SOD INJ 40 MG/0.4 ML SYR SC SCH ×2 (08:41→20:53)
[2018-07-24] MEDS: PRAVASTATIN 20 MG TAB PO SCH (20:50)
[2018-07-24] MEDS: WARFARIN SOD 2 MG TAB PO SCH (20:54)
[2018-07-25 00:33] VITALS: BP 141/76
[2018-07-25 04:00] VITALS: BP 146/65
[2018-07-25 07:38] LABS: ANION GAP 12.2 mmol/L (8-16); CREATININE, SERUM 1.7 mg/dL (0.6-1.1); POTASSIUM 3.2 mmol/L (3.6-5.1)
[2018-07-25 08:00] VITALS: BP 153/70
[2018-07-25 08:11] LABS: CALCIUM 8.9 mg/dL (8.4-10.2)
[2018-07-25] MEDS ORDERED: POTASSIUM CHLORIDE 20 MEQ TAB CR PO ONE (08:30)
[2018-07-25] MEDS: FUROSEMIDE 40 MG TAB PO SCH ×2 (08:52→14:54)
[2018-07-25] MEDS: ALLOPURINOL 300 MG TAB PO SCH (08:52)
[2018-07-25] MEDS: DILTIAZEM HCL 180 MG CAP ER PO SCH (08:52)
[2018-07-25] MEDS: COLCHICINE 0.6 MG TAB PO SCH (08:52)
[2018-07-25] MEDS: PANTOPRAZOLE SOD 40 MG TABEC PO SCH ×2 (08:52→17:11)
[2018-07-25] MEDS: GABAPENTIN 300 MG CAP PO SCH ×2 (08:52→14:54)
[2018-07-25] MEDS: CARVEDILOL 12.5 MG TAB PO SCH ×2 (08:52→17:11)
[2018-07-25] MEDS: FAMOTIDINE 20 MG/2 ML VIAL IV SCH ×2 (08:52→17:11)
[2018-07-25] MEDS: BUMETANIDE 1 MG TAB PO SCH (08:52)
[2018-07-25] MEDS: TRAMADOL HCL 50 MG TAB PO PRN (08:54)
[2018-07-25 12:00] VITALS: BP 134/66
[2018-07-25 15:56] VITALS: BP 134/66
[2018-07-25 16:00] VITALS: BP 137/72
[2018-07-25 16:56] LABS: ANION GAP 15.6 mmol/L (8-16); CALCIUM 8.9 mg/dL (8.4-10.2); CREATININE, SERUM 1.69 mg/dL (0.57-1.11); POTASSIUM 3.6 mmol/L (3.5-5.1)
[2018-07-26] MEDS ORDERED: POTASSIUM CHLORIDE 20 MEQ TAB CR PO SCH (09:00)
== END 2018-07-25 19:12 | disposition home or self-care (01) ==
LOC: ER 14:51 → UNDOADMOB 18:35 → IMCU 18:35 → ERHOLD 19:54 → MED/SURG 21:12
PROVIDERS: ADMIT Family Medicine; ATTEND Family Medicine
DX: I73.9 Peripheral vascular disease, unspecified (principal); E78.00 Pure hypercholesterolemia, unspecified; J44.9 Chronic obstructive pulmonary disease, unspecified; Z82.49 Family history of ischemic heart disease and other diseases of the circulatory system; Z88.8 Allergy status to other drugs, medicaments and biological substances; R60.0 Localized edema; I12.9 Hypertensive chronic kidney disease with stage 1 through stage 4 chronic kidney disease, or unspecified chronic kidney disease; N18.3 Chronic kidney disease, stage 3 (moderate); K21.9 Gastro-esophageal reflux disease without esophagitis; I48.91 Unspecified atrial fibrillation; L03.115 Cellulitis of right lower limb; E78.5 Hyperlipidemia, unspecified
CPT/HCPCS: 36415 ×3; 71045; 80048; 80053 ×2; 83735 ×2; 83880; 85025 ×2; 85610; 93005; 93970; 97116; 97161; 99284; G0378 ×4; G8978; G8979; G8980; J1650 ×3; S0164 ×3

== ENCOUNTER 2018-08-11 22:15 | Inpatient (IN) | payer MEDICARE, OTHER ==
[~2018-08-11] VITALS: Ht 175.3 cm; Wt 94.6 kg
[~2018-08-11 22:15] MED LIST changes: +OMEPRAZOLE40 MG PO
[2018-08-11 23:15] LABS: BASOPHILS % 0.1 % (0.0-1.0); EOSINOPHILS # (AUTO) 0.1 (0.0-0.4); EOSINOPHILS % 0.5 % (0.0-6.0); HEMATOCRIT 28.9 % (34.2-44.1); HEMOGLOBIN 8.9 g/dL (12.0-16.0); LYMPHOCYTES # (AUTO) 1.4 (1.0-3.2); LYMPHOCYTES % 8.2 % (18.0-39.1); MEAN CORPUSCULAR HEMOGLOBIN 25.9 pg (28-32); MEAN CORPUSCULAR HGB CONC 30.8 g/dL (31-35); MONOCYTES # (AUTO) 1.9 (0.2-0.8); MONOCYTES % 11.6 % (4.4-11.3); NEUTROPHILS # (AUTO) 12.9 (2.1-6.9); NEUTROPHILS % 78.9 % (38.7-80.0); PLATELET COUNT 331 x10e3/uL (140-360); RED BLOOD COUNT 3.44 x10e6/uL (3.6-5.1); RED CELL DISTRIBUTION WIDTH 21.1 % (11.7-14.4)
[2018-08-11] MEDS ORDERED: TRAMADOL HCL 50 MG TAB PO ONE (23:15)
[2018-08-11 23:33] LABS: ALBUMIN 2.7 g/dL (3.5-5.0); ALBUMIN/GLOBULIN RATIO 0.9 (0.8-2.0); ANION GAP 17.2 mmol/L (8-16); CALCIUM 8.4 mg/dL (8.4-10.2); CREATININE, SERUM 2.86 mg/dL (0.57-1.11); POTASSIUM 4.2 mmol/L (3.5-5.1)
[2018-08-12] VITALS (8 sets, daily range): BP systolic 110–152; BP diastolic 54–76
--- NOTE | 2018-08-12 00:03 | Diagnostic Imaging Report ---
Exam: Bilateral knee x-rays 3 views Indication: Multiple falls Comparison: None Findings: Bilateral knee degenerative changes. Bilateral vascular calcifications. No fractures. No excessive joint fluid. Impression: No evidence of a right or left knee fracture. Signed by: Dr. Lory Mclain M.D. on 08/12/2018 12:00 AM
--- NOTE | 2018-08-12 00:04 | Diagnostic Imaging Report ---
EXAM: HIPS BILAT TWO VWS(+/- PELVIS) INDICATION: Multiple falls COMPARISON: None FINDINGS: BONES: No acute fractures. JOINTS: No malalignment. SOFT TISSUES: Vascular calcifications. IMPRESSION: No evidence of a pelvic or hip fracture. Signed by: Dr. Lory Mclain M.D. on 08/12/2018 12:01 AM
--- NOTE | 2018-08-12 00:05 | Diagnostic Imaging Report ---
EXAM: CHEST SINGLE (PORTABLE), AP 1 view INDICATION: Multiple falls COMPARISON: AP view the chest July 22, 2018 FINDINGS: LINES/TUBES: None LUNGS: No consolidations or edema. PLEURA: No effusions or pneumothorax. HEART AND MEDIASTINUM: Stable cardiomegaly. BONES AND SOFT TISSUES: No acute findings. IMPRESSION: No acute thoracic abnormality. Signed by: Dr. Lory Mclain M.D. on 08/12/2018 12:02 AM
[2018-08-12 00:40] LABS: BILIRUBIN,URINE NEGATIVE (NEGATIVE); CLARITY,URINE CLEAR (CLEAR); COLOR,URINE YELLOW (YELLOW); KETONES,URINE NEGATIVE (NEGATIVE); LEUKOCYTE ESTERASE ,URINE NEGATIVE (NEGATIVE); NITRITE,URINE NEGATIVE (NEGATIVE); PROTEIN,URINE DIPSTICK NEGATIVE (NEGATIVE); URINE UROBILINOGEN 0.2 mg/dL (0.2 - 1)
[2018-08-12 00:58] LABS: BACTERIA,URINE FEW /HPF; EPITHELIAL CELLS,URINE RARE /LPF; RBC,URINE 0-5 /HPF (0-5); WBC,URINE (MAN) 0-5 /HPF (0-5)
[2018-08-12] MEDS ORDERED: PRESSER VISION PO (01:01)
[2018-08-12] MEDS ORDERED: pro-air INH (01:01)
[2018-08-12] MEDS ORDERED: VITAMIN D22000 UNIT PO (01:01)
[2018-08-12] MEDS ORDERED: NORCO 5-325 TA1 EACH PO (01:01)
[2018-08-12] MEDS ORDERED: RANITIDINE HCL300 MG PO (01:01)
[2018-08-12] MEDS ORDERED: ULTRAM 50MG50 MG PO (01:01)
[2018-08-12] MEDS ORDERED: BUMETANIDE1 MG PO (01:01)
[2018-08-12] MEDS ORDERED: ONDANSETRON HCL INJ 2 MG/ML VIAL IV PRN (01:15)
[2018-08-12] MEDS ORDERED: FUROSEMIDE INJ 10 MG/ML 4 ML VIAL IV ONE (01:15)
[2018-08-12] MEDS ORDERED: SODIUM CHLORIDE FLUSH 10 ML SYR INJ PRN (01:15)
[2018-08-12] MEDS ORDERED: NITROGLYCERIN 0.4 MG SUBL SL PRN (01:15)
[2018-08-12] MEDS ORDERED: ALBUTEROL/IPRATROPIUM 3 ML NEB NEB PRN (01:15)
[2018-08-12] MEDS: TRAMADOL HCL 50 MG TAB PO PRN (04:54)
[2018-08-12] MEDS: FUROSEMIDE INJ 10 MG/ML 4 ML VIAL IV SCH ×3 (05:03→18:31)
--- NOTE | 2018-08-12 07:18 | History and Physical ---
This is an 83-year-old female who comes with fall and lower extremity swelling and pain. HISTORY OF PRESENT ILLNESS: This is Ms. Sparrow who was recently seen in the clinic for right shoulder pain, status post injection to the right shoulder. Was in her usual state of health until she reportedly walked to her car, and she could not brace herself and dizziness came on too fast, and the patient fell and had trauma to the lower extremity. The patient comes in yesterday with difficulty in walking and chronic pain, which is acutely exacerbated. PAST MEDICAL HISTORY: History of hypertension, history of atrial fibrillation, history of COPD, history of lymphedema, history of acute kidney injury, history of breast cancer in the past, history of peripheral vascular disease, history of hypertension, reflux esophagitis. MEDICINES: She takes at home are: 1. Albuterol 0.633 mL nebs 3 times a day as needed. 2. Allopurinol for her gout 300 mg daily. 3. Bumex 1 mg 3 times a day. 4. Carvedilol 12.5 mg twice a day. 5. Colchicine 0.6 mg daily. 6. Diltiazem 180 mg daily. 7. Ergocalciferol 5000 units daily. 8. Lasix 40 mg daily. 9. Gabapentin 300 mg 4 times a day. 10. Hydrocodone 3 times a day 5 per 325 mg. 11. Lovastatin 20 mg. 12. Minocycline 100 mg daily. 13. Nitroglycerin. 14. Omeprazole. 15. Ranitidine. 16. Tramadol as needed for pain. 17. Warfarin 2 mg at night. 18. Breo ellipta. 19. Lidocaine patch. 20. . 21. Proair. SURGICAL HISTORY: History of left mastectomy, history of cataract surgery, history of cholecystectomy. FAMILY HISTORY: Positive for hypertension and cardiac disease too. Positive for Alzheimer disease in father. The patient has recently received the flu vaccination too. REVIEW OF SYSTEMS: Negative for chest pain. Positive for shortness of breath. Positive for nausea. No vomiting. No diarrhea. No constipation. No rectal bleeding. No hematochezia. No hematemesis. Positive for dizziness. No syncope. No fall. No diplopia. No blurry vision. No rectal bleeding. No other paresthesia. Positive for pain in the right hip where she fell. PHYSICAL EXAMINATION GENERAL: The patient is alert and oriented times 3 and in a considerable amount of pain. VITALS: Temperature is 96.7, blood pressure 130/73. She is satting at 100% on 2 L of oxygen. HEENT: Normocephalic and atraumatic. Pupils reactive to light and accommodation. The patient is edentulous. CV: S1 and S2. Irregularly irregular. LUNGS: Decreased air entry. ABDOMEN: Nontender and nondistended. EXTREMITIES: Bilateral lower extremities with lymphedema and chronic venous changes present. Chronic atrophic changes present in the lower extremities. Positive for multiple skin bullous and erythematous lesions secondary to chronic venous insufficiency. LABORATORY VALUES: Initial white count 16,000, hemoglobin 8.9, hematocrit 28.9, and platelet count is 331,000. Neutrophil count is 12.9. Chemistry: Sodium 131, BUN 62, creatinine 2.86. BNP was 242. Urine was negative. IMAGING STUDIES: Chest x-ray shows no acute thoracic abnormalities. Hip x-ray shows no evidence of pelvic or hip fracture. Knee x-ray with no evidence of right knee fracture. ASSESSMENT 1. Status post fall: The patient needs physical therapy. The patient has pain in the lower back. Will order a computerized tomography scan. 2. Leukocytosis: Will go ahead and watch the CBC. Check labs. No antibiotics at this time except for the doxycycline. 3. Acute kidney injury in the setting of chronic kidney injury probably from diuresis: Will continue diuresis secondary to the patient's lymphedema. Consult her client service administrator, Dr. Miguel. 4. Cellulitis of the lower extremity, chronic: Continue minocycline. 5. Chronic obstructive pulmonary disease. 6. Coronary artery disease. 7. Atrial fibrillation. 8. Reflux esophagitis. PLAN: Continue to monitor the patient in the hospital. Physical therapy order has been done. Will check her CBC in the morning. Further recommendations per clinical course. Will continue monitoring the patient. The patient does also have chronic anemia. Will continue checking her H and H on a regular basis. Job#: [id number] [place]
[2018-08-12] MEDS: BUMETANIDE 1 MG TAB PO SCH (08:46)
[2018-08-12] MEDS: DILTIAZEM HCL 180 MG CAP ER PO SCH (08:47)
[2018-08-12] MEDS: GABAPENTIN 300 MG CAP PO SCH ×4 (08:47→21:57)
[2018-08-12] MEDS: CARVEDILOL 12.5 MG TAB PO SCH ×2 (08:47→17:37)
[2018-08-12] MEDS: BREO ELLIPTA INH SCH (08:47)
[2018-08-12] MEDS: ALLOPURINOL 300 MG TAB PO SCH (08:47)
[2018-08-12] MEDS: ALLOPURINOL 100 MG TAB PO SCH (08:47)
[2018-08-12] MEDS: MINOCYCLINE HCL 50 MG CAP PO SCH (08:47)
[2018-08-12] MEDS: COLCHICINE 0.6 MG TAB PO SCH (08:47)
[2018-08-12] MEDS: PANTOPRAZOLE SOD 40 MG TABEC PO SCH ×2 (08:47→17:00)
[2018-08-12] MEDS ORDERED: BUMETANIDE 1 MG TAB PO SCH (09:00)
[2018-08-12] MEDS ORDERED: BREO ELLIPTA INH SCH (09:00)
--- NOTE | 2018-08-12 10:04 | Diagnostic Imaging Report ---
TECHNIQUE: Computed tomography imaging of the right HIP was performed WITHOUT injected contrast. HISTORY: hip pain COMPARISON: None available. FINDINGS: No fracture. No lytic or blastic lesion. Mild degenerative arthrosis of the right hip with narrowing and osteophytosis. Generalized subcutaneous edema and skin thickening. Mild vascular calcifications. No focal muscle atrophy. IMPRESSION: No acute fracture Mild hip degenerative arthrosis Signed by: Dr. Gurpreet Alvarez M.D. on 08/12/2018 10:01 AM
--- NOTE | 2018-08-12 11:03 | Consultation ---
DATE OF CONSULTATION: August 12, 2018 Thanks for allowing us to participate in Ms. Sparrow's care. This is an 83-year-old female who has a history of chronic lymphedema, as well as CKD, stage 3. She is maintained on regular diuretics. More recently, had increased dose because of worsening swelling. She also uses a lymphedema pump apparently at home. Unclear if she is truly _at home fluid restriting herself. She apparently had been dealing with some shoulder pain needing an injection to the acromioclavicular joint area. Subsequently, was ambulating when she fell and bruised the hip area. CT scan is being performed to look for any pathology. X-rays have been thus far negative. No recent NSAID use. On admission here, it was found that her creatinine was elevated compared to her baseline at 2.86. Baseline is 0.2 to 2.2 mg percent. Sodium was slightly low at 131 consistent with free water excess. Chest x-ray did not show any volume overload as such. PAST MEDICAL HISTORY: CKD, stage 4, presumed nephrosclerosis, as well as effective chronic diuresis, hypouricemia, gout, dyspepsia, question of neuropathy, chronic lymphedema, atrial fibrillation, history of prior breast cancer, reflux esophagitis. HOME MEDICATIONS: She has been on both Bumex and Lasix. 1. Bumex as high as 1 mg 3 times a day. 2. Allopurinol 300 mg a day. 3. Albuterol p.r.n. 4. Omeprazole. 5. Hydrocodone. 6. Gabapentin 300 mg 4 times a day. 7. Warfarin as directed by INR. 8. Ranitidine. FAMILY HISTORY: Hypertension. REVIEW OF SYSTEMS CONSTITUTIONAL: Feels weak. SKIN: Chronic changes in the legs. Recurrent infection in the legs. CARDIAC: Denies angina or syncope. Currently, no palpitations. RESPIRATORY: Has some dyspnea, but no hemoptysis or cough. MUSCULOSKELETAL: Right hip pain. GI: No nausea, vomiting, diarrhea. The rest of the review is negative. PHYSICAL EXAMINATION GENERAL: Laying in bed in no distress. VITALS: Temperature 98, heart rate 102 and irregular, blood pressure 134/68. HEENT: No definite facial puffiness. NECK: Unable to see JVD. CHEST: Clear anteriorly. Bilateral breath sounds are equal. CARDIAC: Normal heart tones. Irregular rhythm. EXTREMITIES: Remains swollen and indurated consistent with a history of lymphedema. There appears to be stasis changes with multiple erythematous lesions. ABDOMEN: Soft and nontender. NEURO: Alert and appropriate. Appears to be moving all 4 limbs, although the right lower limb movement is decreased from pain. LABS: UA is actually bland in keeping with likely prerenal azotemia. No casts are reported. Sodium is 131, potassium 4.2, creatinine 2.8, BUN 62. BNP 242. Hemoglobin 8.9, white count 16,400 and platelets 330,000. ASSESSMENT AND PLAN 1. Acute kidney injury on chronic kidney disease, stage 4: Typically, when her volume status is optimized her creatinine is usually around 2 to 2.2. Estimated GFR is usually around 25 mL per minute in such situation. 2. Volume status is rather difficult to determine: Much of her fluid is overload and extravascular. However, her sodium is low. One wonders if she is more overloaded now. 3. Hyperuremia: There is a history of gout. 4. Hyponatremia likely from underlying fluid overload: At this point, somewhat subtle. 5. Anemia which is multifactorial including anemia of chronic kidney disease. PLAN: Continue diuretics for now. Monitor renal function. Keep salt and water restricted. Avoid nephrotoxins such as NSAIDs. Will follow along. Job#: [id number] MANUELA CHOWDHURY
[2018-08-12] MEDS ORDERED: WARFARIN SOD 2 MG TAB PO SCH (21:00)
[2018-08-12 21:25] LABS: INR 5.83; PROTHROMBIN TIME 55.9 seconds (11.9-14.5)
[2018-08-12] MEDS: FAMOTIDINE 20 MG TAB PO SCH (21:57)
[2018-08-12] MEDS: PRAVASTATIN 20 MG TAB PO SCH (21:57)
[2018-08-13] VITALS (8 sets, daily range): BP systolic 111–124; BP diastolic 55–59
[2018-08-13] MEDS: FUROSEMIDE INJ 10 MG/ML 4 ML VIAL IV SCH ×4 (00:03→15:30)
[2018-08-13] MEDS: HYDROCODONE/APAP 5MG-325MG TAB PO PRN ×2 (00:10→05:11)
[2018-08-13 05:30] LABS: BASOPHILS % 0.2 % (0.0-1.0); EOSINOPHILS # (AUTO) 0.1 (0.0-0.4); EOSINOPHILS % 0.6 % (0.0-6.0); LYMPHOCYTES # (AUTO) 1.5 (1.0-3.2); LYMPHOCYTES % 13.5 % (18.0-39.1); MEAN CORPUSCULAR HEMOGLOBIN 26.3 pg (28-32); MEAN CORPUSCULAR HGB CONC 31.4 g/dL (31-35); MONOCYTES # (AUTO) 1.5 (0.2-0.8); MONOCYTES % 12.8 % (4.4-11.3); NEUTROPHILS # (AUTO) 8.3 (2.1-6.9); NEUTROPHILS % 72.3 % (38.7-80.0); PLATELET COUNT 255 x10e3/uL (140-360); RED BLOOD COUNT 2.62 x10e6/uL (3.6-5.1); RED CELL DISTRIBUTION WIDTH 19.8 % (11.7-14.4)
[2018-08-13 05:35] LABS: HEMOGLOBIN 6.9 g/dL (12.0-16.0)
[2018-08-13 05:51] LABS: ALBUMIN 2.2 g/dL (3.5-5.0); ALBUMIN/GLOBULIN RATIO 0.9 (0.8-2.0); ANION GAP 16.9 mmol/L (8-16); CALCIUM 8.1 mg/dL (8.4-10.2); CREATININE, SERUM 2.73 mg/dL (0.57-1.11); POTASSIUM 3.9 mmol/L (3.5-5.1)
[2018-08-13 06:04] LABS: INR 5.29; PROTHROMBIN TIME 51.8 seconds (11.9-14.5)
[2018-08-13] MEDS ORDERED: SODIUM CHLORIDE 0.9% 250ML 250 ML IV ONE (06:15)
[2018-08-13] MEDS ORDERED: PHYTONADIONE 10 MG/ML AMP SC ONE ×4 (06:30→20:30)
[2018-08-13 07:22] LABS: HEMATOCRIT 22.6 % (34.2-44.1); HEMOGLOBIN 6.8 g/dL (12.0-16.0)
[2018-08-13] MEDS: BREO ELLIPTA INH SCH (09:00)
[2018-08-13] MEDS: ALLOPURINOL 100 MG TAB PO SCH ×2 (09:00→12:00)
[2018-08-13] MEDS: ALLOPURINOL 300 MG TAB PO SCH (09:00)
[2018-08-13] MEDS: MINOCYCLINE HCL 50 MG CAP PO SCH (10:00)
[2018-08-13] MEDS: CARVEDILOL 12.5 MG TAB PO SCH ×2 (10:00→17:58)
[2018-08-13] MEDS: BUMETANIDE 1 MG TAB PO SCH (10:00)
[2018-08-13] MEDS: COLCHICINE 0.6 MG TAB PO SCH (10:00)
[2018-08-13] MEDS: GABAPENTIN 300 MG CAP PO SCH ×4 (10:00→21:59)
[2018-08-13] MEDS: PANTOPRAZOLE SOD 40 MG TABEC PO SCH ×2 (10:00→17:57)
[2018-08-13] MEDS: DILTIAZEM HCL 180 MG CAP ER PO SCH (12:00)
--- NOTE | 2018-08-13 12:45 | Consultation ---
DATE OF CONSULTATION: August 13, 2018 REFERRING PHYSICIAN: Dr. Hans Patel. REASON FOR CONSULTATION 1. Status post fall with right hip pain. 2. CHARLOTTE. 3. Patient with hypertension. 4. History of atrial fibrillation. 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 She came to the hospital and underwent workup. X-ray was negative for fracture. CT of the hip was also negative for fracture. There was mild hip arthritis noted. Patient in the meantime has been found to have CHARLOTTE with CKD, was seen by Dr. Miguel and this is an issue as her BUN and creatinine are elevated. I am being asked to evaluate for rehab needs. PAST MEDICAL HISTORY: Hypertension, AFib, COPD, history of lymphedema, Charcot joint, acute kidney injury, multiple joint arthritis, breast cancer, peripheral vascular disease, hypertension, and reflux. PAST SURGICAL HISTORY: Left mastectomy, cataract surgery, cholecystectomy. FAMILY HISTORY: Positive for hypertension and cardiac disease, Alzheimer's disease in her father. HABITS: Nonsmoker, nondrinker. REVIEW OF SYSTEMS: Negative for chest pain. Positive for shortness of breath. Positive for nausea. No vomiting, no diarrhea. Patient has skin changes associated with lymphedema. Has some diminished sensation to her legs. Rest of the review of systems essentially negative. SOCIAL HISTORY: Lives with her son in a 1-jacob home. Uses a walker to mobilize. Somewhat limited ambulator, but she could mobilize and get around in the community so long as she had her assistive device. She is able to do most of her basic ADLs. IMAGING: Chest x-ray, no thoracic abnormality. LABS: White cell count is elevated at 16.4, hemoglobin at 8.9, hematocrit 28.9, platelets of 331. Sodium is 137, potassium 3.9, BUN of 65, creatinine 2.73. Therapy [facility], therapy has not been initiated yet. PHYSICAL EXAMINATION GENERAL: Patient is awake, alert, pleasant. Has noticeable shoulder range of motion limitations bilaterally, also with right hip range of motion limitations as well. EYES: Gaze conjugate. ORAL: Tongue is midline. NECK: Supple. HEART: Regular rate and rhythm. LUNGS: Diminished breath sounds. ABDOMEN: Somewhat protuberant. EXTREMITIES: Very limited shoulder range of motion. Functional range of motion of elbows. Forensic Photographer is actually pretty good. In the lower extremities, limited active movement to the right leg secondary to pain, little bit greater range of motion of left leg. Has diminished sensation from the mid leg down to the feet and has stasis dermatitis of both legs. Manual muscle testing: Shoulder flexion and extension is 2/5 strength, very limited active movement to the shoulder secondary to her arthritis. Elbow flexion and extension is 3+/5 strength. Forensic Photographer is 4/5 strength. In the right hip flexor, 2/5 strength with limited range of motion secondary to pain to her hip. A 3/5 strength in left leg. Knee flexion and extension is 3+/5 on the right and 4-/5 on the left. Ankle dorsiflexion and plantarflexion is 4-/5 bilaterally. IMPRESSION 1. Right hip pain secondary to fall, negative for fracture. 2. Multijoint osteoarthritis. 3. Hypertension. 4. Lymphedema. 5. 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 6. Impaired gait mobility. 7. Leukocytosis. 8. Acute kidney injury on chronic kidney disease, being actively treated. PLAN: Would recommend inpatient rehab as we can work on building up her strength, endurance, transfers, and do conservation techniques. She is having difficulty with mobilizing especially following this fall and this is going to limit her next level care. We will check with insurance and see if they let her come to rehab. Unfortunately, there is no occupational therapy in house, but PT can see her for mobility training. PRECAUTIONS: Falls. We will follow along with you. Thank you once again for allowing me to participate in the care of this pleasant patient. Job#: [id number] BLANCHE
--- NOTE | 2018-08-13 14:13 | Progress Note ---
DATE: August 13, 2018 SUBJECTIVE: Hemoglobin had dropped. She is getting blood transfusion. Presumably, there has been internal blood loss during her fall. Her IN has been high. Hemoglobin is 8.9 to 6.9. PHYSICAL EXAMINATION GENERAL: Lying in bed, no distress. VITAL SIGNS: Temperature 96.1, blood pressure 124/59, and pulse 79, irregular. CHEST: Clear. EXTREMITIES: Legs are wrapped. Bruising around the shoulder. NEUROLOGIC: Alert and appropriate . Speech is normal. LABS: Chemistries; creatinine is 2.86 to 2.73. UA did not show any eosinophils, was essentially bland. Serum sodium is 125. Albumin is only 2.2. ASSESSMENT: Acute kidney injury, presumably this is hemodynamic in retrospect from the blood loss as well as ongoing need for diuretics on account of lymphedema. PLAN: She is already getting transfused. We will only check chemistries tomorrow. Avoid nephrotoxins. We will follow along. Job#: [id number] MEE
[2018-08-13] MEDS ORDERED: SODIUM CHLORIDE 0.9% 250ML 250 ML ONE (15:16)
[2018-08-13] MEDS ORDERED: WARFARIN SOD 2 MG TAB PO SCH (17:00)
[2018-08-13 20:25] LABS: INR 3.68
[2018-08-13] MEDS: PRAVASTATIN 20 MG TAB PO SCH (21:59)
[2018-08-13] MEDS: FAMOTIDINE 20 MG TAB PO SCH (21:59)
[2018-08-14] VITALS (8 sets, daily range): BP systolic 99–126; BP diastolic 58–65
[2018-08-14] MEDS: FUROSEMIDE INJ 10 MG/ML 4 ML VIAL IV SCH ×4 (00:04→18:00)
[2018-08-14] MEDS: HYDROCODONE/APAP 5MG-325MG TAB PO PRN (04:19)
[2018-08-14 05:30] LABS: BASOPHILS % 0.1 % (0.0-1.0); EOSINOPHILS # (AUTO) 0.1 (0.0-0.4); EOSINOPHILS % 0.6 % (0.0-6.0); HEMATOCRIT 24.5 % (34.2-44.1); LYMPHOCYTES # (AUTO) 1.2 (1.0-3.2); LYMPHOCYTES % 11.6 % (18.0-39.1); MEAN CORPUSCULAR HEMOGLOBIN 27.7 pg (28-32); MEAN CORPUSCULAR HGB CONC 32.7 g/dL (31-35); MEAN CORPUSCULAR VOLUME 84.8 fL (81-99); MONOCYTES # (AUTO) 1.5 (0.2-0.8); MONOCYTES % 14.4 % (4.4-11.3); NEUTROPHILS # (AUTO) 7.7 (2.1-6.9); NEUTROPHILS % 72.6 % (38.7-80.0); PLATELET COUNT 214 x10e3/uL (140-360); RED BLOOD COUNT 2.89 x10e6/uL (3.6-5.1); RED CELL DISTRIBUTION WIDTH 18.5 % (11.7-14.4)
[2018-08-14 05:44] LABS: INR 2.97
[2018-08-14 05:50] LABS: ANION GAP 17.7 mmol/L (8-16); CALCIUM 8.1 mg/dL (8.4-10.2); CREATININE, SERUM 2.46 mg/dL (0.57-1.11); POTASSIUM 3.7 mmol/L (3.5-5.1)
[2018-08-14] MEDS: BREO ELLIPTA INH SCH (09:00)
[2018-08-14] MEDS: BUMETANIDE 1 MG TAB PO SCH (09:55)
[2018-08-14] MEDS: MINOCYCLINE HCL 50 MG CAP PO SCH (09:55)
[2018-08-14] MEDS: ALLOPURINOL 300 MG TAB PO SCH (09:55)
[2018-08-14] MEDS: GABAPENTIN 300 MG CAP PO SCH ×4 (09:55→21:07)
[2018-08-14] MEDS: PANTOPRAZOLE SOD 40 MG TABEC PO SCH ×2 (09:55→18:00)
[2018-08-14] MEDS: CARVEDILOL 12.5 MG TAB PO SCH ×2 (09:55→17:00)
[2018-08-14] MEDS: COLCHICINE 0.6 MG TAB PO SCH (09:55)
[2018-08-14] MEDS: DILTIAZEM HCL 180 MG CAP ER PO SCH (09:55)
[2018-08-14 10:03] LABS: LYMPHOCYTES % (MANUAL) 13 % (19-48); MONOCYTES % (MANUAL) 11 % (3.4-9.0); NEUTROPHILS % (MANUAL) 76 % (40-74); PLATELET ESTIMATE ADEQUATE; PLATELET MORPHOLOGY COMMENT NORMAL; RBC MORPHOLOGY COMMENT NORMAL
[2018-08-14] MEDS: FAMOTIDINE 20 MG TAB PO SCH (21:07)
[2018-08-14] MEDS: PRAVASTATIN 20 MG TAB PO SCH (21:07)
[2018-08-15] VITALS (9 sets, daily range): BP systolic 101–124; BP diastolic 51–64
[2018-08-15] MEDS: FUROSEMIDE INJ 10 MG/ML 4 ML VIAL IV SCH ×4 (00:30→18:00)
[2018-08-15 05:38] LABS: INR 1.65; PROTHROMBIN TIME 20.9 seconds (11.9-14.5)
[2018-08-15 05:48] LABS: ANION GAP 16.6 mmol/L (8-16); CREATININE, SERUM 2.41 mg/dL (0.57-1.11); POTASSIUM 3.6 mmol/L (3.5-5.1)
[2018-08-15] MEDS: BREO ELLIPTA INH SCH (09:00)
--- NOTE | 2018-08-15 09:03 | Progress Note ---
DATE: August 15, 2018 Has some swelling. Feeling better. She got some blood. Hemoglobin went up to 8. PHYSICAL EXAMINATION GENERAL: Laying in bed in no distress. VITALS: Temperature 98.9, pulse 97 and irregular, blood pressure 125/54. CHEST: Clear. Minimally diminished breath sounds at the bases. CARDIAC: Irregular rhythm. Normal heart tones. EXTREMITIES: One to 2+ edema (history of lymphedema). NEURO: Alert and appropriate. LABS: Sodium 141, potassium 3.6, creatinine 2.4, baseline around 2 to 2.2, BUN 63. PLAN: Keep salt and water restricted. She is on IV Lasix as long as she tolerates it. That is reasonable. Keep legs elevated as much as possible. Avoid NSAIDs. Will follow along. Job#: [id number] MANUELA
[2018-08-15] MEDS: PANTOPRAZOLE SOD 40 MG TABEC PO SCH ×2 (09:50→18:00)
[2018-08-15] MEDS: MINOCYCLINE HCL 50 MG CAP PO SCH (09:50)
[2018-08-15] MEDS: GABAPENTIN 300 MG CAP PO SCH ×4 (09:50→21:53)
[2018-08-15] MEDS: ALLOPURINOL 300 MG TAB PO SCH (09:50)
[2018-08-15] MEDS: CARVEDILOL 12.5 MG TAB PO SCH ×2 (09:50→18:00)
[2018-08-15] MEDS: BUMETANIDE 1 MG TAB PO SCH (09:50)
[2018-08-15] MEDS: COLCHICINE 0.6 MG TAB PO SCH (09:50)
[2018-08-15] MEDS: ERGOCALCIFEROL 50,000 UNIT CAP PO SCH (09:50)
[2018-08-15] MEDS: DILTIAZEM HCL 180 MG CAP ER PO SCH (09:50)
[2018-08-15] MEDS ORDERED: WARFARIN SOD 2 MG TAB PO SCH (17:00)
[2018-08-15] MEDS: PRAVASTATIN 20 MG TAB PO SCH (21:53)
[2018-08-15] MEDS: FAMOTIDINE 20 MG TAB PO SCH (21:53)
[2018-08-16] MEDS: FUROSEMIDE INJ 10 MG/ML 4 ML VIAL IV SCH ×4 (00:54→17:27)
[2018-08-16] MEDS: HYDROCODONE/APAP 5MG-325MG TAB PO PRN (02:20)
[2018-08-16 04:00] VITALS: BP 108/63
[2018-08-16 06:04] LABS: BASOPHILS % 0.3 % (0.0-1.0); EOSINOPHILS # (AUTO) 0.3 (0.0-0.4); EOSINOPHILS % 2.7 % (0.0-6.0); HEMOGLOBIN 7.2 g/dL (12.0-16.0); LYMPHOCYTES # (AUTO) 1.4 (1.0-3.2); LYMPHOCYTES % 13.8 % (18.0-39.1); MEAN CORPUSCULAR HEMOGLOBIN 27.7 pg (28-32); MEAN CORPUSCULAR HGB CONC 31.7 g/dL (31-35); MEAN CORPUSCULAR VOLUME 87.3 fL (81-99); MONOCYTES # (AUTO) 1.5 (0.2-0.8); MONOCYTES % 14.4 % (4.4-11.3); NEUTROPHILS # (AUTO) 7.1 (2.1-6.9); NEUTROPHILS % 68.3 % (38.7-80.0); PLATELET COUNT 265 x10e3/uL (140-360); RED CELL DISTRIBUTION WIDTH 19.5 % (11.7-14.4)
[2018-08-16 06:08] LABS: HEMATOCRIT 22.7 % (34.2-44.1)
[2018-08-16 06:16] LABS: INR 1.22; PROTHROMBIN TIME 16.5 seconds (11.9-14.5)
[2018-08-16 06:30] LABS: ANION GAP 15.1 mmol/L (8-16); CALCIUM 8.4 mg/dL (8.4-10.2); CREATININE, SERUM 2.57 mg/dL (0.57-1.11); POTASSIUM 4.1 mmol/L (3.5-5.1)
[2018-08-16 07:55] VITALS: BP 117/54
[2018-08-16 08:48] LABS: FERRITIN 67.75 ng/mL (4.63-204.00)
[2018-08-16] MEDS: BREO ELLIPTA INH SCH (09:00)
[2018-08-16 09:05] VITALS: BP 117/54
[2018-08-16] MEDS: BUMETANIDE 1 MG TAB PO SCH (10:00)
[2018-08-16] MEDS: ALLOPURINOL 300 MG TAB PO SCH (10:00)
[2018-08-16] MEDS: TRAMADOL HCL 50 MG TAB PO PRN (10:00)
[2018-08-16] MEDS: DILTIAZEM HCL 180 MG CAP ER PO SCH (10:00)
[2018-08-16] MEDS: PANTOPRAZOLE SOD 40 MG TABEC PO SCH ×2 (10:00→17:26)
[2018-08-16] MEDS: MINOCYCLINE HCL 50 MG CAP PO SCH (10:00)
[2018-08-16] MEDS: CARVEDILOL 12.5 MG TAB PO SCH ×2 (10:00→17:27)
[2018-08-16] MEDS: GABAPENTIN 300 MG CAP PO SCH ×4 (10:00→21:02)
[2018-08-16] MEDS: COLCHICINE 0.6 MG TAB PO SCH (10:00)
[2018-08-16] MEDS ORDERED: SODIUM CHLORIDE 0.9% 250ML 250 ML IV ONE (10:30)
[2018-08-16] MEDS ORDERED: FUROSEMIDE INJ 10 MG/ML 2 ML VIAL IV PRN (10:30)
[2018-08-16 12:00] VITALS: BP 112/56
[2018-08-16] MEDS: IRON SUCROSE 100 MG in SODIUM CHLORIDE 0.9% 100 ML 100 ML IV SCH (12:59)
[2018-08-16 16:31] VITALS: BP 119/55
[2018-08-16 18:59] LABS: HEMATOCRIT 24.2 % (34.2-44.1); HEMOGLOBIN 7.5 g/dL (12.0-16.0)
[2018-08-16 20:00] VITALS: BP 118/57
[2018-08-16] MEDS: PRAVASTATIN 20 MG TAB PO SCH (21:02)
[2018-08-16] MEDS: FAMOTIDINE 20 MG TAB PO SCH (21:02)
[2018-08-17] VITALS (8 sets, daily range): BP systolic 104–129; BP diastolic 50–60
[2018-08-17] MEDS: FUROSEMIDE INJ 10 MG/ML 4 ML VIAL IV SCH ×4 (00:33→17:22)
[2018-08-17 05:38] LABS: BASOPHILS % 0.4 % (0.0-1.0); EOSINOPHILS # (AUTO) 0.4 (0.0-0.4); EOSINOPHILS % 4.6 % (0.0-6.0); HEMATOCRIT 23.4 % (34.2-44.1); HEMOGLOBIN 7.1 g/dL (12.0-16.0); LYMPHOCYTES # (AUTO) 1.1 (1.0-3.2); LYMPHOCYTES % 13.1 % (18.0-39.1); MEAN CORPUSCULAR HGB CONC 30.3 g/dL (31-35); MONOCYTES # (AUTO) 1.1 (0.2-0.8); MONOCYTES % 12.7 % (4.4-11.3); NEUTROPHILS # (AUTO) 5.6 (2.1-6.9); NEUTROPHILS % 68.4 % (38.7-80.0); PLATELET COUNT 277 x10e3/uL (140-360); RED BLOOD COUNT 2.63 x10e6/uL (3.6-5.1)
[2018-08-17 05:48] LABS: INR 1.19; PROTHROMBIN TIME 16.1 seconds (11.9-14.5)
[2018-08-17 05:54] LABS: ANION GAP 15.3 mmol/L (8-16); CALCIUM 8.4 mg/dL (8.4-10.2); CREATININE, SERUM 2.32 mg/dL (0.57-1.11); POTASSIUM 3.3 mmol/L (3.5-5.1)
[2018-08-17] MEDS ORDERED: SODIUM CHLORIDE 0.9% 250ML 250 ML IV ONE (08:30)
[2018-08-17] MEDS: CARVEDILOL 12.5 MG TAB PO SCH ×2 (08:45→17:22)
[2018-08-17] MEDS: BUMETANIDE 1 MG TAB PO SCH (08:45)
[2018-08-17] MEDS: DILTIAZEM HCL 180 MG CAP ER PO SCH (08:45)
[2018-08-17] MEDS: MINOCYCLINE HCL 50 MG CAP PO SCH (08:45)
[2018-08-17] MEDS: COLCHICINE 0.6 MG TAB PO SCH (08:45)
[2018-08-17] MEDS: ALLOPURINOL 300 MG TAB PO SCH (08:45)
[2018-08-17] MEDS: GABAPENTIN 300 MG CAP PO SCH ×4 (08:45→20:58)
[2018-08-17] MEDS: PANTOPRAZOLE SOD 40 MG TABEC PO SCH ×2 (08:52→17:22)
[2018-08-17] MEDS ORDERED: POTASSIUM CHLORIDE 20 MEQ TAB CR PO ONE (09:00)
[2018-08-17] MEDS: BREO ELLIPTA INH SCH (09:00)
[2018-08-17] MEDS: IRON SUCROSE 100 MG in SODIUM CHLORIDE 0.9% 100 ML 100 ML IV SCH (15:07)
--- NOTE | 2018-08-17 16:30 | Operative Report ---
DATE OF PROCEDURE: August 17, 2018 REFERRING PHYSICIAN: Dr. Zaheer Araujo. PROCEDURE PERFORMED: Esophagogastroduodenoscopy. INDICATIONS FOR PROCEDURE: Anemia, iron deficiency, positive occult blood in stool. MEDICATION: Patient was done under MAC. Please see anesthesiologist's note. PROCEDURE: With the patient in the left lateral decubitus position, the flexible fiberoptic Olympus gastroscope was introduced into the esophagus under direct visualization without any difficulty. There was some patchy erythema noted in the distal esophagus. The scope was then advanced with ease into the stomach, traversing a small sliding hiatal hernia. Mucosa overlying the antrum and the body revealed some diffuse erythema and moderate edema, and biopsies were obtained and sent to stain for H. pylori. Pylorus appeared to be of normal contour and shape, was intubated with ease, and the scope was advanced all the way to the 2nd portion of the duodenum. The scope was then withdrawn slowly. Mucosa overlying the proximal 2nd portion and the duodenal bulb appeared to be within normal limits. The scope was then withdrawn back into the stomach and retroflexed, and the mucosa overlying the fundus appeared to be within normal limits. The cardia also appeared to be within normal limits. The scope was then straightened out. It was subsequently withdrawn. Patient tolerated the procedure well. IMPRESSION: 1. Distal esophagitis, mild. 2. Small hiatal hernia. 3. Gastritis biopsied. Biopsies sent to stain for H. pylori. PLAN: Follow up histology. Continue current therapy. Will discuss with family to see if they were able to obtain the result of her last colonoscopy which supposedly was done less than 3 years prior to admission. Job#: [id number] EV cc:ZAHEER ARAUJO MD
[2018-08-17] MEDS ORDERED: PROPOFOL IV EMULSION 10 MG/ML 20 ML VIAL ONE (17:01)
[2018-08-17] MEDS: PRAVASTATIN 20 MG TAB PO SCH (20:58)
[2018-08-17] MEDS: FAMOTIDINE 20 MG TAB PO SCH (20:58)
[2018-08-18] VITALS (8 sets, daily range): BP systolic 103–126; BP diastolic 53–62
[2018-08-18] MEDS: FUROSEMIDE INJ 10 MG/ML 4 ML VIAL IV SCH ×4 (00:59→17:48)
[2018-08-18 05:12] LABS: BASOPHILS % 0.4 % (0.0-1.0); EOSINOPHILS # (AUTO) 0.3 (0.0-0.4); HEMATOCRIT 26.6 % (34.2-44.1); HEMOGLOBIN 8.2 g/dL (12.0-16.0); LYMPHOCYTES # (AUTO) 0.9 (1.0-3.2); LYMPHOCYTES % 11.3 % (18.0-39.1); MEAN CORPUSCULAR HEMOGLOBIN 27.2 pg (28-32); MEAN CORPUSCULAR HGB CONC 30.8 g/dL (31-35); MEAN CORPUSCULAR VOLUME 88.4 fL (81-99); MONOCYTES # (AUTO) 1.2 (0.2-0.8); MONOCYTES % 15.1 % (4.4-11.3); NEUTROPHILS # (AUTO) 5.6 (2.1-6.9); NEUTROPHILS % 68.1 % (38.7-80.0); PLATELET COUNT 297 x10e3/uL (140-360); RED BLOOD COUNT 3.01 x10e6/uL (3.6-5.1); RED CELL DISTRIBUTION WIDTH 20.6 % (11.7-14.4)
[2018-08-18 05:22] LABS: INR 1.08
[2018-08-18 05:27] LABS: ANION GAP 16.4 mmol/L (8-16); CALCIUM 8.7 mg/dL (8.4-10.2); CREATININE, SERUM 2.13 mg/dL (0.57-1.11); POTASSIUM 3.4 mmol/L (3.5-5.1)
[2018-08-18] MEDS: BREO ELLIPTA INH SCH (09:00)
[2018-08-18] MEDS: DILTIAZEM HCL 180 MG CAP ER PO SCH (09:02)
[2018-08-18] MEDS: BUMETANIDE 1 MG TAB PO SCH (09:02)
[2018-08-18] MEDS: COLCHICINE 0.6 MG TAB PO SCH (09:02)
[2018-08-18] MEDS: PANTOPRAZOLE SOD 40 MG TABEC PO SCH ×2 (09:03→16:35)
[2018-08-18] MEDS: ALLOPURINOL 300 MG TAB PO SCH (09:03)
[2018-08-18] MEDS: POTASSIUM CHLORIDE 10MEQ EA PO SCH (09:03)
[2018-08-18] MEDS: GABAPENTIN 300 MG CAP PO SCH ×4 (09:03→21:40)
[2018-08-18] MEDS: MINOCYCLINE HCL 50 MG CAP PO SCH (09:03)
[2018-08-18] MEDS: CARVEDILOL 12.5 MG TAB PO SCH ×2 (09:03→16:35)
[2018-08-18] MEDS: IRON SUCROSE 100 MG in SODIUM CHLORIDE 0.9% 100 ML 100 ML IV SCH (11:46)
[2018-08-18] MEDS: PRAVASTATIN 20 MG TAB PO SCH (21:40)
[2018-08-18] MEDS: FAMOTIDINE 20 MG TAB PO SCH (21:40)
[2018-08-19] VITALS (7 sets, daily range): BP systolic 94–131; BP diastolic 53–76
[2018-08-19] MEDS: FUROSEMIDE INJ 10 MG/ML 4 ML VIAL IV SCH ×4 (00:50→18:08)
[2018-08-19 05:45] LABS: BASOPHILS % 0.4 % (0.0-1.0); EOSINOPHILS # (AUTO) 0.3 (0.0-0.4); EOSINOPHILS % 4.1 % (0.0-6.0); HEMATOCRIT 29.3 % (34.2-44.1); HEMOGLOBIN 8.9 g/dL (12.0-16.0); LYMPHOCYTES % 12.7 % (18.0-39.1); MEAN CORPUSCULAR HEMOGLOBIN 27.6 pg (28-32); MEAN CORPUSCULAR HGB CONC 30.4 g/dL (31-35); NEUTROPHILS # (AUTO) 5.4 (2.1-6.9); NEUTROPHILS % 68.6 % (38.7-80.0); PLATELET COUNT 325 x10e3/uL (140-360); RED BLOOD COUNT 3.22 x10e6/uL (3.6-5.1); RED CELL DISTRIBUTION WIDTH 20.9 % (11.7-14.4)
[2018-08-19 06:00] LABS: INR 1.06; PROTHROMBIN TIME 14.8 seconds (11.9-14.5)
[2018-08-19 06:08] LABS: ANION GAP 17.5 mmol/L (8-16); CALCIUM 8.9 mg/dL (8.4-10.2); CREATININE, SERUM 2.03 mg/dL (0.57-1.11); POTASSIUM 3.5 mmol/L (3.5-5.1)
[2018-08-19] MEDS: METOLAZONE 5 MG TAB PO SCH (09:00)
[2018-08-19] MEDS: BREO ELLIPTA INH SCH (09:00)
[2018-08-19] MEDS: BUMETANIDE 1 MG TAB PO SCH (09:00)
[2018-08-19] MEDS: GABAPENTIN 300 MG CAP PO SCH ×4 (09:00→21:30)
[2018-08-19] MEDS: POTASSIUM CHLORIDE 10MEQ EA PO SCH (09:00)
[2018-08-19] MEDS: MINOCYCLINE HCL 50 MG CAP PO SCH (09:00)
[2018-08-19] MEDS: DILTIAZEM HCL 180 MG CAP ER PO SCH (09:00)
[2018-08-19] MEDS: ALLOPURINOL 300 MG TAB PO SCH (09:00)
[2018-08-19] MEDS: CARVEDILOL 12.5 MG TAB PO SCH ×2 (09:00→17:00)
[2018-08-19] MEDS: PANTOPRAZOLE SOD 40 MG TABEC PO SCH ×2 (09:00→17:00)
--- NOTE | 2018-08-19 11:17 | Diagnostic Imaging Report ---
Tagged-RBC GI Bleed Study Clinical information: 83-year-old female with occult fecal blood. Discussion: The patient's own red blood cells were labeled with 23.7 mCi of technetium-99m pertechnetate using the in vitro method (UltraTag). Dynamic images of the abdomen were obtained through 60 minutes. Distribution of tracer activity appears physiologic throughout the abdomen. No abnormal accumulation of tracer is seen within the gastrointestinal lumen. Impression: No scan evidence of active gastrointestinal bleeding at this time. Signed by: Dr. Mecca Florentino M.D. on 08/19/2018 11:14 AM
[2018-08-19] MEDS: PRAVASTATIN 20 MG TAB PO SCH (21:30)
[2018-08-19] MEDS: FAMOTIDINE 20 MG TAB PO SCH (21:30)
[2018-08-20] VITALS (8 sets, daily range): BP systolic 100–142; BP diastolic 51–67
[2018-08-20] MEDS: FUROSEMIDE INJ 10 MG/ML 4 ML VIAL IV SCH ×3 (00:31→12:22)
[2018-08-20 06:15] LABS: INR 1.06; PROTHROMBIN TIME 14.8 seconds (11.9-14.5)
[2018-08-20 06:23] LABS: ANION GAP 16.3 mmol/L (8-16); CREATININE, SERUM 2.02 mg/dL (0.57-1.11); POTASSIUM 3.3 mmol/L (3.5-5.1)
[2018-08-20] MEDS: BREO ELLIPTA INH SCH (09:00)
[2018-08-20] MEDS: DILTIAZEM HCL 180 MG CAP ER PO SCH (09:28)
[2018-08-20] MEDS: BUMETANIDE 1 MG TAB PO SCH (09:28)
[2018-08-20] MEDS: GABAPENTIN 300 MG CAP PO SCH ×4 (09:29→21:30)
[2018-08-20] MEDS: CARVEDILOL 12.5 MG TAB PO SCH ×2 (09:29→17:00)
[2018-08-20] MEDS: POTASSIUM CHLORIDE 10MEQ EA PO SCH (09:29)
[2018-08-20] MEDS: ALLOPURINOL 300 MG TAB PO SCH (09:29)
[2018-08-20] MEDS: MINOCYCLINE HCL 50 MG CAP PO SCH (09:29)
[2018-08-20] MEDS: METOLAZONE 5 MG TAB PO SCH (09:29)
[2018-08-20] MEDS: PANTOPRAZOLE SOD 40 MG TABEC PO SCH ×2 (09:29→17:29)
[2018-08-20] MEDS: PRAVASTATIN 20 MG TAB PO SCH (21:30)
[2018-08-20] MEDS: FAMOTIDINE 20 MG TAB PO SCH (21:30)
[2018-08-21] VITALS (10 sets, daily range): BP systolic 104–129; BP diastolic 56–70
[2018-08-21 04:52] LABS: BASOPHILS % 0.3 % (0.0-1.0); EOSINOPHILS # (AUTO) 0.3 (0.0-0.4); HEMATOCRIT 28.5 % (34.2-44.1); HEMOGLOBIN 8.8 g/dL (12.0-16.0); LYMPHOCYTES # (AUTO) 1.2 (1.0-3.2); LYMPHOCYTES % 11.3 % (18.0-39.1); MEAN CORPUSCULAR HEMOGLOBIN 27.9 pg (28-32); MEAN CORPUSCULAR HGB CONC 30.9 g/dL (31-35); MEAN CORPUSCULAR VOLUME 90.5 fL (81-99); MONOCYTES # (AUTO) 1.1 (0.2-0.8); MONOCYTES % 10.1 % (4.4-11.3); NEUTROPHILS # (AUTO) 7.8 (2.1-6.9); NEUTROPHILS % 74.6 % (38.7-80.0); PLATELET COUNT 315 x10e3/uL (140-360); RED BLOOD COUNT 3.15 x10e6/uL (3.6-5.1); RED CELL DISTRIBUTION WIDTH 21.3 % (11.7-14.4); RETICULOCYTE % 5.7 % (0.8-2.2)
[2018-08-21 05:02] LABS: INR 1.08
[2018-08-21 05:08] LABS: ANION GAP 17.2 mmol/L (8-16); CALCIUM 9.2 mg/dL (8.4-10.2); CREATININE, SERUM 2.24 mg/dL (0.57-1.11); POTASSIUM 3.2 mmol/L (3.5-5.1)
[2018-08-21] MEDS ORDERED: POTASSIUM CHLORIDE 20 MEQ TAB CR PO STA (05:58)
[2018-08-21] MEDS: BREO ELLIPTA INH SCH (09:00)
[2018-08-21] MEDS: BUMETANIDE 1 MG TAB PO SCH (09:19)
[2018-08-21] MEDS: PANTOPRAZOLE SOD 40 MG TABEC PO SCH ×2 (09:19→17:15)
[2018-08-21] MEDS: CARVEDILOL 12.5 MG TAB PO SCH ×2 (09:19→17:00)
[2018-08-21] MEDS: DILTIAZEM HCL 180 MG CAP ER PO SCH (09:19)
[2018-08-21] MEDS: MINOCYCLINE HCL 50 MG CAP PO SCH (09:19)
[2018-08-21] MEDS: ALLOPURINOL 300 MG TAB PO SCH (09:19)
[2018-08-21] MEDS: METOLAZONE 5 MG TAB PO SCH (09:19)
[2018-08-21] MEDS: GABAPENTIN 300 MG CAP PO SCH ×4 (09:19→21:51)
[2018-08-21] MEDS: PRAVASTATIN 20 MG TAB PO SCH (21:51)
[2018-08-21] MEDS: FAMOTIDINE 20 MG TAB PO SCH (21:51)
[2018-08-22 04:00] VITALS: BP 120/61
[2018-08-22 05:21] LABS: INR 1.03; PROTHROMBIN TIME 14.4 seconds (11.9-14.5)
[2018-08-22 07:49] VITALS: BP 136/59
[2018-08-22] MEDS: BREO ELLIPTA INH SCH (09:00)
[2018-08-22] MEDS: PANTOPRAZOLE SOD 40 MG TABEC PO SCH ×2 (09:19→18:07)
[2018-08-22] MEDS: CARVEDILOL 12.5 MG TAB PO SCH ×2 (09:20→18:07)
[2018-08-22] MEDS: GABAPENTIN 300 MG CAP PO SCH ×4 (09:20→21:40)
[2018-08-22] MEDS: DILTIAZEM HCL 180 MG CAP ER PO SCH (09:20)
[2018-08-22] MEDS: BUMETANIDE 1 MG TAB PO SCH (09:20)
[2018-08-22] MEDS: ERGOCALCIFEROL 50,000 UNIT CAP PO SCH (09:20)
[2018-08-22] MEDS: MINOCYCLINE HCL 50 MG CAP PO SCH (09:21)
[2018-08-22] MEDS: ALLOPURINOL 300 MG TAB PO SCH (09:21)
[2018-08-22 09:42] VITALS: BP 136/59
[2018-08-22 10:11] LABS: BASOPHILS % 0.2 % (0.0-1.0); EOSINOPHILS # (AUTO) 0.3 (0.0-0.4); EOSINOPHILS % 2.8 % (0.0-6.0); HEMATOCRIT 27.7 % (34.2-44.1); HEMOGLOBIN 8.4 g/dL (12.0-16.0); LYMPHOCYTES # (AUTO) 1.6 (1.0-3.2); MEAN CORPUSCULAR HEMOGLOBIN 27.8 pg (28-32); MEAN CORPUSCULAR HGB CONC 30.3 g/dL (31-35); MEAN CORPUSCULAR VOLUME 91.7 fL (81-99); MONOCYTES # (AUTO) 1.2 (0.2-0.8); MONOCYTES % 10.2 % (4.4-11.3); NEUTROPHILS % 70.5 % (38.7-80.0); PLATELET COUNT 326 x10e3/uL (140-360); RED BLOOD COUNT 3.02 x10e6/uL (3.6-5.1)
[2018-08-22 12:12] VITALS: BP 112/53
[2018-08-22 12:21] LABS: ALBUMIN 2.4 g/dL (3.5-5.0); ALBUMIN/GLOBULIN RATIO 0.9 (0.8-2.0); ANION GAP 16.5 mmol/L (8-16); CALCIUM 8.7 mg/dL (8.4-10.2); CREATININE, SERUM 2.35 mg/dL (0.57-1.11); POTASSIUM 3.5 mmol/L (3.5-5.1)
[2018-08-22] MEDS: ACETAMINOPHEN 325 MG TAB PO PRN (13:09)
[2018-08-22 17:31] VITALS: BP 112/55
[2018-08-22 20:00] VITALS: BP 101/49
[2018-08-22] MEDS: FAMOTIDINE 20 MG TAB PO SCH (21:40)
[2018-08-22] MEDS: PRAVASTATIN 20 MG TAB PO SCH (21:40)
[2018-08-23] VITALS (9 sets, daily range): BP systolic 101–121; BP diastolic 50–58
[2018-08-23 05:29] LABS: BASOPHILS % 0.4 % (0.0-1.0); EOSINOPHILS # (AUTO) 0.4 (0.0-0.4); EOSINOPHILS % 3.3 % (0.0-6.0); HEMATOCRIT 30.1 % (34.2-44.1); HEMOGLOBIN 9.2 g/dL (12.0-16.0); LYMPHOCYTES # (AUTO) 1.4 (1.0-3.2); LYMPHOCYTES % 12.9 % (18.0-39.1); MEAN CORPUSCULAR HEMOGLOBIN 28.1 pg (28-32); MEAN CORPUSCULAR HGB CONC 30.6 g/dL (31-35); MONOCYTES # (AUTO) 1.2 (0.2-0.8); MONOCYTES % 10.7 % (4.4-11.3); NEUTROPHILS # (AUTO) 7.8 (2.1-6.9); NEUTROPHILS % 71.1 % (38.7-80.0); PLATELET COUNT 317 x10e3/uL (140-360); RED BLOOD COUNT 3.27 x10e6/uL (3.6-5.1); RED CELL DISTRIBUTION WIDTH 22.4 % (11.7-14.4)
[2018-08-23 05:44] LABS: INR 1.03; PROTHROMBIN TIME 14.4 seconds (11.9-14.5)
[2018-08-23 05:53] LABS: ANION GAP 14.1 mmol/L (8-16); CALCIUM 9.1 mg/dL (8.4-10.2); CREATININE, SERUM 2.48 mg/dL (0.57-1.11); POTASSIUM 3.1 mmol/L (3.5-5.1)
[2018-08-23] MEDS ORDERED: POTASSIUM CHLORIDE 20 MEQ TAB CR PO STA (08:12)
[2018-08-23 08:59] LABS: BAND NEUTROPHILS % (MANUAL) 1 %; EOSINOPHILS % (MANUAL) 3 % (0-7); LYMPHOCYTES % (MANUAL) 10 % (19-48); MONOCYTES % (MANUAL) 5 % (3.4-9.0); NEUTROPHILS % (MANUAL) 80 % (40-74)
[2018-08-23] MEDS: BREO ELLIPTA INH SCH (09:00)
[2018-08-23 09:01] LABS: ANISOCYTOSIS MODERATE; HYPOCHROMASIA SLIGHT; PLATELET ESTIMATE ADEQUATE; PLATELET MORPHOLOGY COMMENT NORMAL
[2018-08-23 09:02] LABS: RBC MORPHOLOGY COMMENT NORMAL
[2018-08-23] MEDS: BUMETANIDE 1 MG TAB PO SCH (09:04)
[2018-08-23] MEDS: DILTIAZEM HCL 180 MG CAP ER PO SCH (09:05)
[2018-08-23] MEDS: MINOCYCLINE HCL 50 MG CAP PO SCH (09:05)
[2018-08-23] MEDS: PANTOPRAZOLE SOD 40 MG TABEC PO SCH ×2 (09:05→17:18)
[2018-08-23] MEDS: ALLOPURINOL 300 MG TAB PO SCH (09:05)
[2018-08-23] MEDS: CARVEDILOL 12.5 MG TAB PO SCH ×2 (09:05→17:19)
[2018-08-23] MEDS: GABAPENTIN 300 MG CAP PO SCH ×4 (09:05→20:52)
--- NOTE | 2018-08-23 09:15 | Diagnostic Imaging Report ---
History:Consultation Comparison studies:None Technique: Axial images were obtained from the skull base to the vertex. Coronal and sagittal images reconstructed from the axial data. Intravenous contrast: None Dose modulation, iterative reconstruction, and/or weight based adjustment of the mA/kV was utilized to reduce the radiation dose to as low as reasonably achievable. Findings: Scalp/skull: No abnormalities. Extra-axial spaces: No masses. No fluid collections. Brain sulci: Mildly prominent. Ventricles: Mild compensatory dilatation. No hydrocephalus. Parenchyma: Scattered small hypodensities in the supratentorial white matter are small vessel ischemic changes. No masses, hemorrhage, acute or chronic cortical vascular insults. Sellar/suprasellar region: No abnormalities. Craniocervical junction: Patent foramen magnum. The right cerebellar tonsil. This 4 mm below the foramen magnum. No mass effect over the craniocervical junction. Incidental findings: Atherosclerotic calcifications in the carotid siphons and vertebral arteries . Bilateral cataract surgery changes. Impression: No acute abnormalities. Chronic findings: 1. Mild generalized volume loss. 2. Mild supratentorial white matter small vessel ischemic changes. 3. Low-lying right cerebellar tonsil. Signed by: DR Hebert Diez M.D. on 08/23/2018 9:12 AM
[2018-08-23] MEDS ORDERED: POTASSIUM CHLORIDE 20MEQ/100ML 200 ML IV ONE (12:15)
[2018-08-23] MEDS: PRAVASTATIN 20 MG TAB PO SCH (20:52)
[2018-08-23] MEDS: FAMOTIDINE 20 MG TAB PO SCH (20:52)
[2018-08-24] VITALS (7 sets, daily range): BP systolic 100–120; BP diastolic 50–64
[2018-08-24 05:43] LABS: BASOPHILS # (AUTO) 0.1 (0.0-0.1); BASOPHILS % 0.4 % (0.0-1.0); EOSINOPHILS # (AUTO) 0.5 (0.0-0.4); EOSINOPHILS % 3.9 % (0.0-6.0); HEMOGLOBIN 10.2 g/dL (12.0-16.0); LYMPHOCYTES # (AUTO) 1.6 (1.0-3.2); LYMPHOCYTES % 13.9 % (18.0-39.1); MEAN CORPUSCULAR HEMOGLOBIN 28.1 pg (28-32); MEAN CORPUSCULAR VOLUME 93.7 fL (81-99); MONOCYTES # (AUTO) 1.1 (0.2-0.8); MONOCYTES % 9.3 % (4.4-11.3); NEUTROPHILS # (AUTO) 8.1 (2.1-6.9); NEUTROPHILS % 70.8 % (38.7-80.0); PLATELET COUNT 344 x10e3/uL (140-360); RED BLOOD COUNT 3.63 x10e6/uL (3.6-5.1); RED CELL DISTRIBUTION WIDTH 23.3 % (11.7-14.4)
[2018-08-24 06:09] LABS: ANION GAP 16.5 mmol/L (8-16); CALCIUM 9.3 mg/dL (8.4-10.2); CREATININE, SERUM 2.9 mg/dL (0.57-1.11); POTASSIUM 3.5 mmol/L (3.5-5.1)
[2018-08-24] MEDS: BREO ELLIPTA INH SCH (09:00)
[2018-08-24] MEDS: MINOCYCLINE HCL 50 MG CAP PO SCH (10:00)
[2018-08-24] MEDS: CARVEDILOL 12.5 MG TAB PO SCH ×2 (10:00→17:21)
[2018-08-24] MEDS: PANTOPRAZOLE SOD 40 MG TABEC PO SCH ×2 (10:00→17:21)
[2018-08-24] MEDS: DILTIAZEM HCL 180 MG CAP ER PO SCH (10:00)
[2018-08-24] MEDS: ALLOPURINOL 300 MG TAB PO SCH (10:00)
[2018-08-24] MEDS: GABAPENTIN 300 MG CAP PO SCH ×4 (10:00→21:00)
[2018-08-24 12:53] LABS: ANISOCYTOSIS SLIGHT; HYPOCHROMASIA SLIGHT; PLATELET ESTIMATE ADEQUATE; PLATELET MORPHOLOGY COMMENT NORMAL; RBC MORPHOLOGY COMMENT NORMAL
[2018-08-24] MEDS: PRAVASTATIN 20 MG TAB PO SCH (21:00)
[2018-08-24] MEDS: FAMOTIDINE 20 MG TAB PO SCH (21:00)
[2018-08-25 00:23] VITALS: BP 104/51
[2018-08-25] MEDS: ACETAMINOPHEN 325 MG TAB PO PRN (03:51)
[2018-08-25 05:16] VITALS: BP 104/51
[2018-08-25 07:46] VITALS: BP 118/55
[2018-08-25] MEDS: BREO ELLIPTA INH SCH (09:00)
[2018-08-25 09:13] VITALS: BP 118/55
[2018-08-25] MEDS: CARVEDILOL 12.5 MG TAB PO SCH (09:46)
[2018-08-25] MEDS: PANTOPRAZOLE SOD 40 MG TABEC PO SCH (09:46)
[2018-08-25] MEDS: GABAPENTIN 300 MG CAP PO SCH (09:46)
[2018-08-25] MEDS: ALLOPURINOL 300 MG TAB PO SCH (09:46)
[2018-08-25] MEDS: MINOCYCLINE HCL 50 MG CAP PO SCH (09:46)
[2018-08-25] MEDS: DILTIAZEM HCL 180 MG CAP ER PO SCH (09:46)
[2018-08-25 12:10] VITALS: BP 92/50
--- NOTE | 2018-10-16 19:54 | Discharge Summary ---
Patient came to the hospital with acute kidney injury, warfarin toxicity, anemia of blood loss, AFib, and COPD. The patient was started on physical therapy. Lasix was given 40 mg q.6 h. For warfarin toxicity, vitamin K was given. Anemia of blood loss, H and H was trended. Hemoglobin of 6.9 and 22.0. AFib, we held back her warfarin. Patient did also have a left hip pain. X-rays were taken. Patient's warfarin toxicity did improve. Creatinine level was trended 2.46 was the last one and was stable after that. Patient continued to feel better. Rehab consult was done and for the lymphedema and the cellulitis of the lower extremities, patient was continued on antibiotic. Patient also did get nebulizer treatment in the hospital and physical therapy was also given to the patient. Patient did have a GI consult too and iron-deficiency anemia was noted and gram-positive stool was noted too. Patient did get 1 unit of PRBC during the hospitalization and GI bleed, we continued to monitor the patient. Patient's kidney functions did deteriorate and therefore, Dr. Borges was called in. We continued to monitor the patient and once the patient was doing better, the patient was discharged home. FINAL DIAGNOSES 1. Warfarin toxicity. 2. Acute kidney injury. 3. Anemia of blood loss. 4. Atrial fibrillation. 5. Chronic obstructive pulmonary disease with exacerbation. 6. Lymphedema and cellulitis of the lower extremities. For further information, look in the chart. For medicines on discharge, look in the medical reconciliation sheet. The patient was discharged on minocycline 100 mg daily for cellulitis. ZAHEER ARAUJO MD Job#: [id number] CQ
== END 2018-08-25 15:19 | DRG 682 ==
LOC: ER 22:15 → ERHOLD 08-12 01:04 → IMCU 08-12 02:40 → MED/SURG 08-12 11:48
PROVIDERS: ADMIT Family Medicine; ATTEND Family Medicine
PROC: 30233N1 Transfusion of Nonautologous Red Blood Cells into Peripheral Vein, Percutaneous Approach (ICD-10-PCS; 2018-08-13)
PROC: 0DB68ZX Excision of Stomach, Via Natural or Artificial Opening Endoscopic, Diagnostic (ICD-10-PCS; principal; 2018-08-17 15:37)
DX: N17.9 Acute kidney failure, unspecified (principal); L89.153 Pressure ulcer of sacral region, stage 3; L03.116 Cellulitis of left lower limb; L03.115 Cellulitis of right lower limb; K92.1 Melena; E87.1 Hypo-osmolality and hyponatremia; I25.10 Atherosclerotic heart disease of native coronary artery without angina pectoris; K21.0 Gastro-esophageal reflux disease with esophagitis; I48.91 Unspecified atrial fibrillation; J44.9 Chronic obstructive pulmonary disease, unspecified; N18.4 Chronic kidney disease, stage 4 (severe); D63.1 Anemia in chronic kidney disease; M54.5 Low back pain; R53.81 Other malaise; M25.551 Pain in right hip; S70.02XA Contusion of left hip, initial encounter; W19.XXXA Unspecified fall, initial encounter; I12.9 Hypertensive chronic kidney disease with stage 1 through stage 4 chronic kidney disease, or unspecified chronic kidney disease; M15.9 Polyosteoarthritis, unspecified; I89.0 Lymphedema, not elsewhere classified; I73.9 Peripheral vascular disease, unspecified; K57.90 Diverticulosis of intestine, part unspecified, without perforation or abscess without bleeding; K29.70 Gastritis, unspecified, without bleeding; K44.9 Diaphragmatic hernia without obstruction or gangrene; I87.2 Venous insufficiency (chronic) (peripheral); E87.6 Hypokalemia; G62.9 Polyneuropathy, unspecified; D50.0 Iron deficiency anemia secondary to blood loss (chronic); E78.00 Pure hypercholesterolemia, unspecified; Z85.3 Personal history of malignant neoplasm of breast; Z79.01 Long term (current) use of anticoagulants; Z86.73 Personal history of transient ischemic attack (TIA), and cerebral infarction without residual deficits; M10.9 Gout, unspecified
CPT/HCPCS: 36415; 43239; 51700; 70450; 71045; 73521; 78278; 80048; 80053; 81001; 81015; 82270; 82728; 83540; 83735; 83880; 83970; 84100; 84466; 85014; 85018; 85025; 85045; 85610; 86850; 86900; 86920; 87493; 88305; 88312; 96374; 96376; 97139; 99284; A9512; J1756; J1940; J2405; J3430; J3480; J7050; P9016

== ENCOUNTER 2018-09-01 10:43 | Inpatient (IN) | payer MEDICARE, OTHER ==
[~2018-09-01] VITALS: Ht 175.3 cm; Wt 94.3 kg
[~2018-09-01 10:43] MED LIST changes: +NORCO 5-325 TA1 EACH PO; +PRESSER VISION PO; +RANITIDINE HCL300 MG PO; +ULTRAM 50MG50 MG PO; +VITAMIN D22000 UNIT PO; +pro-air INH
[2018-09-01] MEDS ORDERED: ACETAMINOPHEN 1000 MG/100 ML IV STA ×2 (11:01→23:39)
[2018-09-01] MEDS ORDERED: SODIUM CHLORIDE 0.9% 500ML 500 ML IV ONE ×3 (11:15→13:45)
[2018-09-01 11:19] LABS: BASOPHILS % 0.2 % (0.0-1.0); EOSINOPHILS % 0.2 % (0.0-6.0); HEMATOCRIT 30.9 % (34.2-44.1); HEMOGLOBIN 9.5 g/dL (12.0-16.0); LYMPHOCYTES # (AUTO) 0.6 (1.0-3.2); LYMPHOCYTES % 4.3 % (18.0-39.1); MEAN CORPUSCULAR HEMOGLOBIN 28.7 pg (28-32); MEAN CORPUSCULAR HGB CONC 30.7 g/dL (31-35); MEAN CORPUSCULAR VOLUME 93.4 fL (81-99); MONOCYTES # (AUTO) 1.7 (0.2-0.8); MONOCYTES % 11.5 % (4.4-11.3); NEUTROPHILS # (AUTO) 12.3 (2.1-6.9); NEUTROPHILS % 83.1 % (38.7-80.0); PLATELET COUNT 262 x10e3/uL (140-360); RED BLOOD COUNT 3.31 x10e6/uL (3.6-5.1); RED CELL DISTRIBUTION WIDTH 22.4 % (11.7-14.4)
[2018-09-01 11:27] LABS: CLARITY,URINE CLOUDY (CLEAR); COLOR,URINE YELLOW (YELLOW); LEUKOCYTE ESTERASE ,URINE 2+ (NEGATIVE); NITRITE,URINE NEGATIVE (NEGATIVE); PROTEIN,URINE DIPSTICK TRACE (NEGATIVE)
[2018-09-01 11:28] LABS: BILIRUBIN,URINE NEGATIVE (NEGATIVE); KETONES,URINE NEGATIVE (NEGATIVE); URINE UROBILINOGEN 0.2 mg/dL (0.2 - 1)
[2018-09-01 11:30] LABS: AMPHETAMINES SCREEN,URINE NEGATIVE (NEGATIVE); BENZODIAZEPINES SCREEN,URINE NEGATIVE (NEGATIVE); PHENCYCLIDINE SCREEN,URINE NEGATIVE (NEGATIVE)
[2018-09-01 11:31] LABS: INR 1.15; PROTHROMBIN TIME 15.7 seconds (11.9-14.5)
[2018-09-01 11:32] LABS: PARTIAL THROMBOPLASTIN TIME 34.3 seconds (23.8-35.5)
[2018-09-01 11:36] LABS: ALBUMIN 2.5 g/dL (3.5-5.0); ALBUMIN/GLOBULIN RATIO 0.8 (0.8-2.0); ANION GAP 18.3 mmol/L (8-16); CALCIUM 8.7 mg/dL (8.4-10.2); CREATININE, SERUM 4.12 mg/dL (0.57-1.11); POTASSIUM 4.3 mmol/L (3.5-5.1)
[2018-09-01 11:37] LABS: BACTERIA,URINE MANY /HPF; EPITHELIAL CELLS,URINE FEW /LPF; RBC,URINE 0-5 /HPF (0-5); WBC,URINE (MAN) >50 /HPF (0-5)
[2018-09-01 11:59] LABS: BAND NEUTROPHILS % (MANUAL) 4 %; LYMPHOCYTES % (MANUAL) 4 % (19-48); MONOCYTES % (MANUAL) 7 % (3.4-9.0); NEUTROPHILS % (MANUAL) 85 % (40-74)
--- NOTE | 2018-09-01 11:59 | Diagnostic Imaging Report ---
EXAMINATION: Head CT HISTORY: Alteration of consciousness COMPARISON: Head CT on 08/23/2018 TECHNIQUE: Multidetector axial images were obtained without contrast from the foramen magnum to the vertex . The images were reconstructed using brain and bone algorithms. Thin section brain images were reformatted into coronal and sagittal planes. Image quality: Motion/streaking artifact limits the evaluation of the skull base and posterior cranial fossa. Dose modulation, iterative reconstruction, and/or weight based adjustment of the mA/kV was utilized to reduce the radiation dose to as low as reasonably achievable. FINDINGS: Parenchyma: 1. Persistent mild chronic microvascular ischemic changes. 2. No mass or hemorrhage. No CT evidence of acute territorial vascular insult. Extra-axial spaces:No abnormal density. No extra-axial fluid collections Brain volume: Normal for age. Ventricles: No hydrocephalus or displacement. Arteries: No density suggestive of thrombus. Dural sinuses: No abnormal density. Extra-axial spaces: No abnormal density. Foramen magnum: Unchanged minimal low-lying cerebellar tonsil on the right side. Sella: No obvious mass. Paranasal/mastoid sinuses: Imaged portions unremarkable. Skull/Scalp: No lytic or blastic lesions. No fractures. IMPRESSION: 1. Suboptimal study due to motion, grossly no acute intracranial hemorrhage, mass or hydrocephalus. 2. Persistent mild chronic microvascular ischemic changes. Signed by: Dr. Genesis Dunn M.D. on 09/01/2018 11:56 AM
[2018-09-01 12:00] LABS: ANISOCYTOSIS SLIGHT; PLATELET ESTIMATE ADEQUATE; PLATELET MORPHOLOGY COMMENT FEW GIANT
[2018-09-01 12:07] LABS: CREATINE KINASE MB 1.3 ng/mL (0-5.0)
--- NOTE | 2018-09-01 12:09 | Diagnostic Imaging Report ---
EXAM: CHEST SINGLE (PORTABLE), AP 1 view COMPARISON: Chest radiograph 08/11/18. FINDINGS: The patient's chin obscures the left lung apex. LINES/TUBES: None LUNGS: Low lung volumes. Mild patchy left basilar opacity. Mild central vascular congestion without pulmonary edema. PLEURA: No effusions or pneumothorax. HEART AND MEDIASTINUM: Unchanged mild enlargement of the cardiomediastinal silhouette. Atherosclerotic aortic calcifications. BONES AND SOFT TISSUES: No acute bony findings. IMPRESSION: Low lung volumes with mild patchy left basilar opacity, likely atelectasis, although pneumonia is possible in the appropriate clinical setting. Follow-up chest radiograph to resolution is suggested. Signed by: Dr. Verona Shay MD on 09/01/2018 12:06 PM
[2018-09-01] MEDS ORDERED: DILTIAZEM HCL 100 ML IV STA (12:16)
[2018-09-01] MEDS ORDERED: DILTIAZEM HCL 5 MG/ML 5 ML VIAL IV STA (12:16)
[2018-09-01] MEDS ORDERED: AZITHROMYCIN 500MG/NS 250 ML 250 ML IV SCH (12:30)
[2018-09-01] MEDS ORDERED: DILTIAZEM HCL 125 ML IV STA (12:31)
[2018-09-01] MEDS ORDERED: DILTIAZEM HCL VIAL 5 ML ONE (12:32)
[2018-09-01] MEDS: CEFTRIAXONE SOD 1 GM VIAL IV SCH (12:55)
[2018-09-01] MEDS ORDERED: SODIUM CHLORIDE 0.9% 500ML 500 ML ONE (13:45)
[2018-09-01] MEDS: SODIUM CHLORIDE 0.9% 1000ML 1,000 ML IV SCH (14:38)
[2018-09-01] MEDS ORDERED: HEPARIN SOD (PORCINE) 5,000 UNIT/ML VIAL IV SCH (15:15)
[2018-09-01] MEDS: HEPARIN 25,000U/0.45% NS 250ML 250 ML IV SCH (15:25)
--- NOTE | 2018-09-01 16:24 | Consultation ---
DATE OF CONSULTATION: September 01, 2018 REASON FOR CONSULTATION: Sepsis and UTI. HISTORY OF PRESENT ILLNESS: Thank you so much to see this patient. This patient who is known to me from previous admissions. She does have underlying history of lymphedema and recurrent cellulitis and recurrent infection of the leg. The patient was recently in the hospital on August 12, 2018. She came at that time with fall, lower extremity swelling and pain. She was here for about 2 weeks. She did have a Ly catheter and then she was discharged to the long term. At the long term, the Ly catheter was removed and she was started on PT/OT. The patient was doing well for a couple of days, then she started feeling really bad, did not want to participate in this therapy, felt a little bit feverish. She was confused. She was sent back to emergency room. In the emergency room, she was admitted. Catheter was reinserted. Patient was started on antibiotic and I was asked to see her in the emergency room. The patient said she came here. She seems a bit more alert. Family at the bedside. She has no complaints except she is weak. HOME MEDICATIONS: She is on albuterol 0.63 mL nebulizer 3 times a day, allopurinol 300 mg daily, Bumex 1 mg 3 times a day, Carvedilol 12.5 mg twice a day, colchicine 0.6 mg daily, diltiazem 180 mg daily, Lasix 40 mg daily, gabapentin 300 mg 4 times a day, hydrocodone 3 tablets a day, lovastatin 20 daily. She is on minocycline, nitroglycerin, ranitidine, and tramadol. SOCIAL HISTORY: There is no smoking, drug abuse, alcohol abuse. . FAMILY HISTORY: Hypertension. PAST SURGICAL HISTORY: Left mastectomy, cataract surgery, and cholecystectomy. ALLERGIES: NKA. PHYSICAL EXAMINATION GENERAL: She is currently alert, oriented. Does not seem to be in acute distress. VITALS: Stable, currently afebrile. HEENT: She does not appear icteric. NECK: Supple. CHEST: Few crackles. COR: S1 and S2. No S3, S4. ABDOMEN: Soft. EXTREMITIES: She has bilateral chronic edema. LABORATORY DATA: White count is 14.75, hemoglobin 9.5, her platelet is 262. Sodium 136, potassium 4.3, creatinine 4.12 which was quite a jump from previous was 10.24. It was 2.9 on August 24, 2018. Her chest x-ray low lung volume, mild left basilar opacity may be by pneumonia. IMPRESSION AND PLAN 1. Sepsis on admission. 2. Acute kidney injury on top of chronic kidney disease due to sepsis/probably dehydration. 3. Sepsis. Well this could be urinary tract infection. I am also concerned about aspiration pneumonia. 4. Acute kidney injury on chronic kidney disease. 5. Debility. From infectious disease point of view, I agree with Rocephin and azithromycin for the time being. Agree with blood cultures, urine cultures. Agree with IV fluids. Consider renal evaluation. We will follow. Job#: [id number] TIMOTHY
--- NOTE | 2018-09-01 16:29 | History and Physical ---
Patient was recently in the hospital and was discharged to a group home. She comes back today with decreased mental status. Patient presented with UTI and admitted for the same. PAST MEDICAL HISTORY: History of hypertension, history of atrial fibrillation, history of hyperlipidemia, history of COPD, history of Charcot foot, reflux esophagitis. MEDICATIONS: She takes at home are: 1. Albuterol sulfate. 2. Allopurinol 300 mg daily. 3. Bumex 1 mg 3 times a day. 4. Carvedilol 25 mg twice a day. 5. Colchicine 0.6 mg for gout. 6. Diltiazem ER 180 mg to 360 mg daily. 7. Furosemide 40 mg 3 times a day. 8. Gabapentin 300 mg. 9. Hydrocodone. 10. [place] q.6 h. 11. Lovastatin 20 mg at nighttime. 12. Minocycline 100 mg capsule daily. 13. Ranitidine 300 mg a day. 14. Tramadol 50 mg. 15. Warfarin 2 mg. PAST SURGICAL HISTORY: History of left mastectomy, cholecystectomy and cataract. The patient also has a history of breast cancer in the past. The patient was recently discharged as mentioned from here with cellulitis. FAMILY HISTORY: History of Alzheimer disease and history of cardiac disorders in the family. REVIEW OF SYSTEMS: Unable to obtain because of mental status changes. PHYSICAL EXAMINATION VITAL SIGNS: Temperature is 99.3, pulse is 133, respirations of 18, blood pressure 175/55 with a pulse of 120. The patient is in atrial fibrillation. HEENT: Normocephalic and atraumatic. Pupils are active to light and accommodation. CV: S1 and S2 irregularly irregular and with ventricular heart sounds. ABDOMEN: Nontender and nondistended. EXTREMITIES: No edema. The patient typically has lower extremity chronic venous changes, which are present, but no edema present. No erythema present either. LABORATORY EXAMINATION: The patient's white count is 14,000 with a left shift. Hemoglobin of 9.5, hematocrit of 30.9. Chemistry: Sodium of 136, creatinine of 4.12, BUN of 85. Total bilirubin was 1.5. Her BNP was 1461. Toxicology result is all negative. Urine was positive for 2+ leukocyte estrace and also wbcs was above 50. A lot of bacteria in it too. Coags: PT was 15.5 and INR was 1.15. The patient's chest x-ray showed low lung volume with mild patchy left basilar opacity, likely atelectasis and possible pneumonia. Brain CT was also done, which shows persistent mild chronic ischemic changes. No vascular insult and mild microvascular changes. ASSESSMENT 1. Urinary tract infection: Cultures for blood and urine have been sent. The patient has been started on antibiotics. 2. Pneumonia. 3. Hypovolemia. 4. Prerenal azotemia. 5. Acute kidney injury. 6. Acute mental status changes secondary to urinary tract infection. PLAN: Hydrate the patient. Will go ahead and start the patient on antibiotics, which has been started. Will go ahead and resume her regular medications. Will put her on an amiodarone drip and heparin drip until the coags are normalized. Further recommendations per clinical course. Will continue to monitor the patient. Keep her at bedrest at this time. Consult with cardiology and infectious disease has been done. Further recommendations per clinical course. Job#: [id number] MANUELA
[2018-09-01] MEDS ORDERED: WARFARIN SOD 2 MG TAB PO SCH (17:00)
[2018-09-01] MEDS ORDERED: CARVEDILOL 12.5 MG TAB PO SCH (17:00)
[2018-09-01] MEDS: PANTOPRAZOLE SOD 40 MG TABEC PO SCH (17:07)
[2018-09-01 20:13] LABS: CREATINE KINASE MB 2.8 ng/mL (0-5.0)
[2018-09-01] MEDS ORDERED: NON-FORMULARY MEDICATION (Lovastatin 20 MG) PO SCH (21:00)
[2018-09-01] MEDS: SIMVASTATIN 20 MG TAB PO SCH (21:00)
[2018-09-01 22:35] VITALS: BP 78/36
[2018-09-01 22:50] VITALS: BP 69/45
[2018-09-01 23:05] VITALS: BP 91/54
[2018-09-01 23:20] VITALS: BP 76/51
[2018-09-01 23:35] VITALS: BP 87/52
[2018-09-01] MEDS ORDERED: ACETAMINOPHEN 1000 MG/100 ML 100 ML IV ONE (23:37)
[2018-09-01 23:50] VITALS: BP 70/49
[2018-09-02] VITALS (102 sets, daily range): BP systolic 58–182; BP diastolic 33–169
[2018-09-02] MEDS: CEFTRIAXONE SOD 1 GM VIAL IV SCH (00:03)
[2018-09-02] MEDS ORDERED: FENTANYL CITRATE/PF 100MCG/2 ML INJ ONE (00:35)
[2018-09-02] MEDS ORDERED: NOREPINEPHRINE 8 MG/D5W 250 ML 250 ML ONE ×2 (00:38→08:35)
[2018-09-02] MEDS ORDERED: AMIODARONE 900MG 500 ML IV ONE (00:55)
[2018-09-02] MEDS ORDERED: AMIODARONE HCL 100 ML IV ONE (00:55)
[2018-09-02] MEDS ORDERED: AMIODARONE HCL 360MG 200 ML IV SCH ×4 (00:57→07:00)
[2018-09-02] MEDS ORDERED: AMIODARONE HCL 150MG 100 ML IV SCH (01:00)
--- NOTE | 2018-09-02 01:07 | Diagnostic Imaging Report ---
EXAM: CHEST SINGLE (PORTABLE), AP 1 view INDICATION: Central line placement COMPARISON: AP view of the chest September 01, 2018 FINDINGS: LINES/TUBES: Interval placement of right internal jugular vein central line with tip terminating at the expected location of the atriocaval junction. LUNGS: No consolidations or edema. PLEURA: No effusions or pneumothorax. HEART AND MEDIASTINUM: Stable enlargement of the cardiomediastinal silhouette. BONES AND SOFT TISSUES: No acute findings. IMPRESSION: Interval placement of right internal jugular vein central line with tip terminating at the expected location of the atriocaval junction. No pneumothorax. Signed by: Dr. Lory Mclain M.D. on 09/02/2018 1:04 AM
[2018-09-02] MEDS: NOREPINEPHRINE INJ 4MG/4ML 8 MG in DEXTROSE 5% 250ML 250 ML IV SCH (01:18)
[2018-09-02] MEDS: HEPARIN 25,000U/0.45% NS 250ML 250 ML IV SCH ×2 (01:46→21:33)
[2018-09-02] MEDS ORDERED: AMIODARONE 900MG 500 ML IV SCH ×2 (02:00→06:00)
--- NOTE | 2018-09-02 02:19 | Consultation ---
DATE OF CONSULTATION: September 01, 2018 REFERRING PHYSICIAN: Dr. Hans Patel. REASON FOR CONSULTATION: Atrial fibrillation. HISTORY OF PRESENT ILLNESS: Ms. Sparrow is a pleasant 83-year-old woman, well known to me with a history of hypertension; chronic atrial fibrillation with previous failed attempt of Watchman [place], on chronic anticoagulation with warfarin; hyperlipidemia; COPD; valvular heart disease; lymphedema; renal insufficiency; chronic kidney disease; chronic diastolic heart failure, who presents to [facility] via the emergency department for hypertension noted in her assisted living. She is found to have fever documented in emergency department, atrial fibrillation with rapid ventricular response and hypotension. Fluid resuscitation is initiated. She had urinalysis concerning for urinary tract infection. She has decreased sensorium. Her son is at bedside. The patient denies any chest pain or shortness of breath, however is somnolent still. Her atrial fibrillation has remained in the 120s to 130s RVR. Her systolic blood pressure is ranging in the 80s to 90s with MAP in the mid 60s. REVIEW OF SYSTEMS: Twelve-system review negative except for as noted above and limited by her mental status. PAST MEDICAL HISTORY: As per HPI. SURGICAL HISTORY: Left mastectomy, cholecystectomy, cataract surgery, history of breast cancer, remote. PHYSICAL EXAMINATION VITALS: Temperature 97.8, T-max 101.8, heart rate 118 to 130, AFib on telemetry, respiratory rate 16, blood pressure 85/41, O2 sat 100%. GENERAL: Depressed sensorium, somnolent. NECK: No JVD or carotid bruits. CHEST: Clear to auscultation bilaterally. CARDIOVASCULAR: Irregularly irregular rate and rhythm. Normal S1 and S2. Systolic ejection murmur 1/6. ABDOMEN: Soft. EXTREMITIES: With 1+ edema. Thickening and discoloration of bilateral lower extremities in the setting of chronic lymphedema. Overall, decreased compared to her usual. CARDIOVASCULAR MEDICATIONS: Reviewed, warfarin 2 mg daily, carvedilol 25 mg b.i.d., heparin IV, simvastatin 10 mg nightly. Was started on azithromycin antibiotic. STUDIES: Reviewed. White blood cells 14.7, hemoglobin 9.5, platelets 262,000. INR 1.1. CK 321, CK-MB 2.8 and troponin 1 0.221. BNP 1461. Urine culture drawn and blood cultures drawn and pending. Brain CT--suboptimal study due to motion, grossly no acute intracranial hemorrhage, mass or hydrocephalus. Persistent mild chronic microvascular ischemic changes noted. Chest x-ray--low lung volumes. Mild patchy left basilar opacity, likely atelectasis although pneumonia possible in appropriate clinical setting. ASSESSMENT 1. Severe sepsis with septic shock, borderline responsive to intravenous fluids. 2. Deconditioning. 3. Encephalopathy/delirium. 4. Urinary tract infection. 5. Atrial fibrillation with rapid ventricular response. 6. Lymphedema. 7. History of hypertension and dyslipidemia. 8. Chronic obstructive pulmonary disease. RECOMMENDATIONS: Overall guarded prognosis. Aggressive IV fluid resuscitation has been initiated. Antibiotics initiated. ID consulted. Regarding her atrial fibrillation, her rapid ventricular response at this point is in part compensatory given her hypotension and sepsis with fever. Control temperature. Continue fluid resuscitation. Levophed as needed. Transfer to ICU if necessary to maintain a MAP of 65 to 75, currently within the described range, MAP of 67. Trend blood cultures. Continue IV heparin for now. She is in acute renal failure with a creatinine of 4.1, up from 2.9 on August 24, 2018. Currently, not a candidate for digoxin, beta aleida or calcium channel aleida for rate control. Given her hypotension, I do not believe starting amiodarone is ideal at this point. We will continue conservative management for overnight as long as her rate remains less than 150. Reconsider adding amiodarone temporarily starting tomorrow depending on continued response. Overall, her prognosis remains guarded. Job#: [id number]
[2018-09-02] MEDS: SODIUM CHLORIDE 0.9% 1000ML 1,000 ML IV SCH ×2 (03:05→17:00)
[2018-09-02 04:46] LABS: BASOPHILS % 0.2 % (0.0-1.0); EOSINOPHILS # (AUTO) 0.1 (0.0-0.4); EOSINOPHILS % 0.4 % (0.0-6.0); HEMATOCRIT 27.8 % (34.2-44.1); HEMOGLOBIN 8.6 g/dL (12.0-16.0); LYMPHOCYTES # (AUTO) 0.9 (1.0-3.2); LYMPHOCYTES % 5.3 % (18.0-39.1); MEAN CORPUSCULAR HEMOGLOBIN 28.9 pg (28-32); MEAN CORPUSCULAR HGB CONC 30.9 g/dL (31-35); MEAN CORPUSCULAR VOLUME 93.3 fL (81-99); MONOCYTES # (AUTO) 1.7 (0.2-0.8); MONOCYTES % 10.3 % (4.4-11.3); NEUTROPHILS # (AUTO) 13.6 (2.1-6.9); NEUTROPHILS % 82.5 % (38.7-80.0); PLATELET COUNT 244 x10e3/uL (140-360); RED BLOOD COUNT 2.98 x10e6/uL (3.6-5.1); RED CELL DISTRIBUTION WIDTH 22.3 % (11.7-14.4)
[2018-09-02 05:06] LABS: ANION GAP 19.1 mmol/L (8-16); CALCIUM 8.1 mg/dL (8.4-10.2); CREATININE, SERUM 4.11 mg/dL (0.57-1.11); POTASSIUM 4.1 mmol/L (3.5-5.1)
[2018-09-02 05:34] LABS: CREATINE KINASE MB 2.7 ng/mL (0-5.0)
[2018-09-02 06:53] LABS: LYMPHOCYTES % (MANUAL) 4 % (19-48); MONOCYTES % (MANUAL) 13 % (3.4-9.0); NEUTROPHILS % (MANUAL) 82 % (40-74)
[2018-09-02] MEDS: PANTOPRAZOLE SOD 40 MG TABEC PO SCH ×2 (07:30→14:55)
--- NOTE | 2018-09-02 07:45 | Progress Note ---
DATE OF CONSULTATION: September 02, 2018 DAILY NOTE Patient is here for abdominal pain, sepsis, urinary tract infection, and AFib with RVR. Patient came in yesterday. Patient continues to be in AFib with RVR. She has been started on amiodarone. Last night, a rapid response was called secondary to low blood pressure. Levophed was started. The patient has been on Levophed at 15 mcg. Patient is also on heparin drip for AFib. She is also on amiodarone drip at this time. Patient currently is on Rocephin and azithromycin. She still continues to have abdominal pain. EXAM VITALS: Patient's temperature is 98.5. Pulse of 124, irregular. Blood pressure is 119/79, on Levophed. SpO2 92% on 2 L of oxygen. HEENT: Normocephalic, atraumatic. Pupils reactive to light. CV: Irregularly irregular. Tachycardic. ABDOMEN: Tender in the right upper quadrant. LUNGS: Positive for decreased breath sounds to all lung ramírez. EXTREMITIES: Positive for lymphedema, positive for atrophic changes and also for chronic dermatitis from chronic lymphedema. Patient also has decreased sensation of the lower extremities and no clubbing, no cyanosis. Positive for edema. BLOOD WORK: Sodium is 137, potassium is 4.1, BUN is 88, creatinine is 4.11, hemoglobin of 8.6, hematocrit of 27.8. INR is 1.15, PTT 1.5. AST 23, ALT 12, the alkaline phosphatase 169. The patient has a left shift, neutrophil count of 82. ASSESSMENT 1. Sepsis. 2. Leukocytosis. 3. Atrial fibrillation with rapid ventricular response. 4. Hypertension. 5. Severe sepsis and hyperlipidemia. PLAN: Continue the patient on amiodarone drip, Levophed, and heparin, and will change the antibiotics out to Zosyn 2.[address] of the abdomen and pelvis without contrast will be done to rule out any abdominal pathology. Heparin will be continued for her AFib with RVR. Will continue monitor the patient. Labs will be done. I had a long discussion with the family. The patient's family is aware of the condition and they opted for do not resuscitate. Patient will be in the ICU and will continue monitor the patient in the ICU. Consultants involved are Dr. Diaz, Dr. Singh for cardiology. Further recommendation per clinical course. Prognosis is very poor. Job#: [id number] EVELIA
[2018-09-02] MEDS: AMIODARONE 900MG 500 ML IV SCH (08:00)
[2018-09-02] MEDS: ALLOPURINOL 300 MG TAB PO SCH (09:00)
[2018-09-02] MEDS: PIPERACILLIN/TAZO 2.25 GM 50 ML IV SCH ×3 (09:19→17:47)
--- NOTE | 2018-09-02 11:00 | Progress Note ---
DATE: September 02, 2018 CARDIOLOGY PROGRESS NOTE SUBJECTIVE: An eventful night. Hypertension persisted in spite of IV fluids. The patient requiring Levophed. Atrial fibrillation with rapid ventricular response for which amiodarone and heparin has been initiated. She is complaining of abdominal discomfort this morning for which a CT has been ordered. The patient will go to CT. OBJECTIVE VITALS: Temperature 99.4, heart rate 120 and AFib with RVR, blood pressure 114/65, O2 sat 99% on Levophed 14 mcg. GENERAL: Somnolent. CHEST: Coarse breath sounds with scattered rhonchi. CARDIOVASCULAR: Irregularly irregular rate and rhythm. Normal S1 and S2. No S3 or S4. ABDOMEN: Soft. No rebound or guarding. EXTREMITIES: Chronic lymphedema changes, skin thickening and edema. Overall, back to her baseline. CARDIOVASCULAR MEDICATIONS: Reviewed. On Zosyn, amiodarone IV drip, heparin IV, simvastatin at bedtime on hold, and currently on p.o. amiodarone IV drip, and Levophed IV. STUDIES: White blood cells 16.4, hemoglobin 8.6, and platelets 244,000. INR 1.1. PTT 51.9. Sodium 137, potassium 4.1, chloride 100, bicarbonate 22, BUN 88, creatinine 4.1 and trending up. Lactic acid was 11. Glucose 133. Calcium 8.1. Serial troponins negative. ASSESSMENT 1. Severe sepsis with septic shock. 2. Atrial fibrillation with rapid ventricular response. 3. Dyslipidemia. 4. Chronic lymphedema. 5. Urinary tract infection. 6. Encephalopathy/delirium. 7. History of hypertension. 8. Chronic obstructive pulmonary disease. RECOMMENDATIONS: Continue supportive care. CHARLOTTE noted. Monitor urine output. Strict in's and out's. Monitor blood culture results. Broad-spectrum antibiotic coverage ongoing. Imaging for abdominal discomfort ongoing today. Overall, guarded prognosis. Continue heparin for thromboembolic risk prevention. Will follow closely. Discussed at length with the patient's family members. Patient currently obtunded. Job#: [id number] MANUELA
--- NOTE | 2018-09-02 11:29 | Diagnostic Imaging Report ---
PROCEDURE: CT ABDOMEN AND PELVIS WITHOUT CONTRAST TECHNIQUE: The abdomen and pelvis were scanned utilizing a multidetector helical scanner from the diaphragm to the lesser trochanter without IV contrast. Coronal and sagittal multiplanar reformations were obtained. COMPARISON: CT Abdomen/Pelvis 05/16/18. INDICATIONS: ABDOMEN PAIN FINDINGS: ABSENCE OF INTRAVENOUS CONTRAST DECREASES SENSITIVITY FOR DETECTION OF FOCAL LESIONS AND VASCULAR PATHOLOGY. LOWER THORAX: Small bilateral pleural effusions, right greater than left. Mitral annular calcifications. HEPATOBILIARY: No focal hepatic lesions. No biliary ductal dilatation. Status post cholecystectomy. SPLEEN: No splenomegaly. PANCREAS: No focal masses or ductal dilatation. ADRENALS: No adrenal nodules. KIDNEYS/URETERS: No hydronephrosis, stones, or solid mass lesions. Multifocal renal scarring, right greater than left. Right greater than left retroperitoneal inflammatory stranding. PELVIC ORGANS/BLADDER: As on prior CT, there is questionable heterogeneous endometrial thickening, with limited evaluation in the absence of IV contrast. Ly catheter is present in a decompressed bladder. PERITONEUM / RETROPERITONEUM: Trace retroperitoneal fluid bilaterally with inflammatory changes. LYMPH NODES: No lymphadenopathy. VESSELS: Extensive atherosclerotic calcifications of the abdominal aorta and branch vessels. GI TRACT: No distention. Extensive colonic diverticulosis. There is right sided pericolonic stranding in the mid ascending colon. The adjacent colon is decompressed and there is no oral contrast so evaluation for wall thickening is difficult. Appendix is not clearly identified. BONES AND SOFT TISSUES: Unremarkable. IMPRESSION: Right perirenal and pericolonic inflammatory changes. Mild left perirenal inflammatory change. Extensive colonic diverticulosis. Limited evaluation of the colon in the absence of IV or oral contrast, although there is no definite wall thickening. The appendix is not clearly identified. Findings may reflect pyelonephritis in this patient with known UTI. Right sided diverticulitis or appendicitis is considered less likely. Small bilateral pleural effusions, right greater than left. Possible endometrial thickening with limited evaluation without IV Contrast. Pelvic ultrasound may be considered for further evaluation. Dictated by: ROSA KERR M.D. on 09/02/2018 at 11:38 Electronically approved by: ROSA KERR M.D. on 09/02/2018 at 11:38
--- NOTE | 2018-09-02 11:33 | Consultation ---
DATE OF CONSULTATION: September 02, 2018 Ms. Sparrow is known to our nephrology service. She has history of chronic kidney disease, multiple comorbids, has stage-4 kidney failure, history of hypertension, hypertensive kidney disease with chronic atrial fibrillation, chronic lymphedema, history of breast cancer status post left mastectomy, history of GERD, history of congestive heart failure, peripheral neuropathy, who was admitted with severe sepsis. Currently quite sleepy, arousable. Son by bedside. Unable to get review of systems. The patient does not follow any commands. ALLERGIES: PREGABALIN. CURRENT MEDICATIONS: Patient is on IV amiodarone as well as IV Levophed. Started on azithromycin and Piptazo. Also receiving IV normal saline at 75 mL an hour. She is on warfarin, which has been stopped. She is on simvastatin 10 mg at bedtime and pantoprazole. Workup included abdominal CT and pelvis. Chest x-ray shows low lung volumes, mild patchy left basilar opacities, likely atelectasis. Chest x-ray shows again pneumothorax status post central line. Abdominal CT report pending. Patient does not appear to be in any respiratory distress. Labs show white count 16.4. Hemoglobin 8.6 with a potassium 4.1. Bicarbonate 22. Creatinine 4.11. Urine culture: Gram-negative rods. Blood cultures pending. SOCIAL HISTORY: Does not smoke or drink. Son and daughter pretty much make decisions for her. PHYSICAL EXAMINATION VITALS: As above with blood pressure 107/42. She remains in atrial fibrillation, with her ventricular rate varying between 97 and 108. Oxygen saturation 98%. HEAD AND NECK: Pupils reactive. Oral mucosa unable to examine. No JVD appreciated. LUNGS: Harsh vesicular breath sounds. Scattered rhonchi. No rales. HEART: S1, S2 audible. ABDOMEN: Otherwise soft and nontender. LOWER EXTREMITIES: Chronic skin changes, but trace to 1+ ankle edema. IMPRESSION AND PLAN 1. Zeebb-ic-hmbvboy kidney failure with anemia. 2. Rapid ventricular response atrial fibrillation. 3. Multiple comorbidities. 4. Urine culture positive. Infectious disease to see. Overall appears quite ill. Discussed renal condition, renal prognosis and renal replacement therapy with the son. He declines any option for dialysis, only wants medical treatment. Does not want his mom to be intubated or on dialysis. I will do my level best in addressing kidney issues medically. I agree with the son. The patient is a very poor dialysis candidate given the multiple comorbids, advanced age and current situation. Will wean off Levophed and start vasopressin. Monitor the patient's kidney function and urine output with you. Job#: [id number]
[2018-09-02] MEDS: VASOPRESSIN 100 UNIT in DEXTROSE 5% 100ML 95 ML IV PRN (11:42)
[2018-09-02] MEDS ORDERED: ACETAMINOPHEN 1000 MG/100 ML IV ONE (15:15)
[2018-09-02] MEDS: LORAZEPAM INJ 2 MG/ML VIAL IV PRN (21:27)
[2018-09-02] MEDS: SIMVASTATIN 20 MG TAB PO SCH (22:11)
[2018-09-03] VITALS (87 sets, daily range): BP systolic 62–158; BP diastolic 39–147
[2018-09-03] MEDS: PIPERACILLIN/TAZO 2.25 GM 50 ML IV SCH ×3 (00:41→11:40)
[2018-09-03] MEDS: LORAZEPAM INJ 2 MG/ML VIAL IV PRN ×4 (04:06→23:23)
[2018-09-03 04:59] LABS: ALBUMIN 2.1 g/dL (3.5-5.0); ALBUMIN/GLOBULIN RATIO 0.7 (0.8-2.0); CALCIUM 8.3 mg/dL (8.4-10.2); CREATININE, SERUM 4.41 mg/dL (0.57-1.11)
[2018-09-03] MEDS: HEPARIN 25,000U/0.45% NS 250ML 250 ML IV SCH ×2 (05:41→11:06)
[2018-09-03] MEDS: PANTOPRAZOLE SOD 40 MG TABEC PO SCH ×2 (07:30→15:35)
[2018-09-03] MEDS ORDERED: AMIODARONE 900MG 500 ML IV ONE (08:41)
[2018-09-03] MEDS ORDERED: NOREPINEPHRINE 8 MG/D5W 250 ML 250 ML ONE (08:41)
[2018-09-03] MEDS: AMIODARONE 900MG 500 ML IV SCH (08:55)
[2018-09-03] MEDS: ALLOPURINOL 300 MG TAB PO SCH (08:55)
[2018-09-03] MEDS: NOREPINEPHRINE INJ 4MG/4ML 8 MG in DEXTROSE 5% 250ML 250 ML IV SCH (08:55)
[2018-09-03] MEDS: SODIUM CHLORIDE 0.9% 1000ML 1,000 ML IV SCH (08:58)
[2018-09-03] MEDS: VASOPRESSIN 100 UNIT in DEXTROSE 5% 100ML 95 ML IV PRN (11:23)
[2018-09-03] MEDS: BALSAM PERU/CASTOR OIL 60 GM OINT...G. TP SCH (11:40)
[2018-09-03] MEDS: SODIUM BICARBONATE 8.4% SYRING 150 ML in DEXTROSE 5% 1,000 ML IV SCH (12:40)
[2018-09-03] MEDS ORDERED: MEROPENEM 500MG 500 MG in SODIUM CHLORIDE 0.9% 50ML 50 ML IV SCH (14:00)
--- NOTE | 2018-09-03 15:38 | Progress Note ---
DATE: September 03, 2018 CARDIOLOGY PROGRESS NOTE SUBJECTIVE: Altered mental status. OBJECTIVE VITAL SIGNS: Temperature 98.8, heart rate 98, respiratory rate 16, blood pressure 121/68, O2 sat 99% on room air. CHEST: With coarse breath sounds. CARDIOVASCULAR: Irregularly irregular rate and rhythm. Normal S1 and S2. ABDOMEN: Soft. EXTREMITIES: Chronic lymphedema changes and edema 1+. CARDIOVASCULAR MEDICATIONS: Reviewed, meropenem and Zosyn drips including vasopressor, heparin, Levophed, and amiodarone. TELEMETRY: Atrial fibrillation with ventricular response in the 90s to 120s. STUDIES: Reviewed significant for creatinine of 4.4, potassium 4, bicarbonate of 15. Cardiac enzymes serially are negative. ASSESSMENT 1. Acute renal failure. 2. Metabolic acidosis. 3. Severe sepsis with septic shock. 4. Atrial fibrillation with rapid ventricular response. 5. Dyslipidemia. 6. Urinary tract infection. 7. Encephalopathy and delirium. 8. Chronic obstructive pulmonary disease. RECOMMENDATIONS 1. Continue current cardiovascular medications. 2. Check urinalysis. 3. Monitor blood culture results, so far negative x48 hours. 4. Overall guarded prognosis. Discussed at length with patient's son and [id number]. They seem to be inclined to proceed with no escalation of care at this point and are currently in conversations about goals of care. Job#: [id number] MEE
[2018-09-03] MEDS: SIMVASTATIN 20 MG TAB PO SCH (21:00)
[2018-09-04] VITALS (91 sets, daily range): BP systolic 73–152; BP diastolic 48–121
[2018-09-04] MEDS: NOREPINEPHRINE INJ 4MG/4ML 8 MG in DEXTROSE 5% 250ML 250 ML IV SCH ×2 (01:00→20:19)
[2018-09-04 04:49] LABS: BASOPHILS % 0.3 % (0.0-1.0); EOSINOPHILS # (AUTO) 0.1 (0.0-0.4); EOSINOPHILS % 0.4 % (0.0-6.0); HEMATOCRIT 26.7 % (34.2-44.1); HEMOGLOBIN 8.1 g/dL (12.0-16.0); LYMPHOCYTES # (AUTO) 0.8 (1.0-3.2); LYMPHOCYTES % 5.5 % (18.0-39.1); MEAN CORPUSCULAR HEMOGLOBIN 28.3 pg (28-32); MEAN CORPUSCULAR HGB CONC 30.3 g/dL (31-35); MEAN CORPUSCULAR VOLUME 93.4 fL (81-99); MONOCYTES # (AUTO) 1.6 (0.2-0.8); MONOCYTES % 11.4 % (4.4-11.3); NEUTROPHILS # (AUTO) 11.2 (2.1-6.9); NEUTROPHILS % 81.2 % (38.7-80.0); PLATELET COUNT 240 x10e3/uL (140-360); RED BLOOD COUNT 2.86 x10e6/uL (3.6-5.1); RED CELL DISTRIBUTION WIDTH 22.1 % (11.7-14.4)
[2018-09-04 05:14] LABS: ANION GAP 19.9 mmol/L (8-16); CALCIUM 8.4 mg/dL (8.4-10.2); CREATININE, SERUM 4.42 mg/dL (0.57-1.11)
[2018-09-04 05:16] LABS: POTASSIUM 2.9 mmol/L (3.5-5.1)
[2018-09-04] MEDS: SODIUM BICARBONATE 8.4% SYRING 150 ML in DEXTROSE 5% 1,000 ML IV SCH (05:43)
[2018-09-04] MEDS ORDERED: POTASSIUM CHLORIDE 20MEQ/100ML 200 ML IV ONE (06:30)
[2018-09-04] MEDS: PANTOPRAZOLE SOD 40 MG TABEC PO SCH ×2 (07:18→16:12)
[2018-09-04] MEDS: ALLOPURINOL 300 MG TAB PO SCH (07:18)
[2018-09-04] MEDS: HEPARIN 25,000U/0.45% NS 250ML 250 ML IV SCH (07:57)
[2018-09-04] MEDS: BALSAM PERU/CASTOR OIL 60 GM OINT...G. TP SCH (10:44)
[2018-09-04] MEDS: LORAZEPAM INJ 2 MG/ML VIAL IV PRN ×2 (11:39→20:03)
[2018-09-04] MEDS: MEROPENEM 500MG 500 MG in SODIUM CHLORIDE 0.9% 50ML 50 ML IV SCH (13:34)
--- NOTE | 2018-09-04 15:54 | Progress Note ---
DATE: September 04, 2018 CARDIOLOGY PROGRESS NOTE SUBJECTIVE: Confused. OBJECTIVE VITAL SIGNS: Temperature 98 degrees, heart rate 98, atrial fibrillation on telemetry, respiratory rate 22, blood pressure 112/68, O2 sat 100% on nasal cannula. GENERAL: Confused. CHEST: With coarse breath sounds bilateral bases. CARDIOVASCULAR: Irregularly irregular rate and rhythm. Normal S1 and S2. Systolic ejection murmur. ABDOMEN: Soft. EXTREMITIES: Trace edema with chronic hyperpigmented and skin thickening changes. CARDIOVASCULAR MEDICATIONS: Reviewed. IV heparin. Off of vasopressor and Levophed. On amiodarone. Antibiotics including meropenem. STUDIES: Reviewed. White blood cells 13.8, hemoglobin 8.1, platelets 240. PTT 71, potassium 2.9, creatinine 4.4. ASSESSMENT 1. Acute renal failure. 2. Metabolic acidosis. 3. Severe sepsis with septic shock. 4. Atrial fibrillation with rapid ventricular response. 5. Dyslipidemia. 6. Urinary tract infection. 7. Encephalopathy and delirium. 8. Chronic obstructive pulmonary disease. RECOMMENDATIONS 1. Continue current cardiovascular medications. 2. Check UA. 3. Monitor blood cultures results, negative x 22 hours so far. 4. UTI with Klebsiella pneumonia, urine culture. Overall guarded prognosis. Job#: [id number] LPA
[2018-09-04] MEDS ORDERED: FUROSEMIDE INJ 10 MG/ML 4 ML VIAL IV NR (18:00)
[2018-09-04] MEDS: SIMVASTATIN 20 MG TAB PO SCH (20:03)
[2018-09-05] VITALS (89 sets, daily range): BP systolic 63–136; BP diastolic 42–117
[2018-09-05] MEDS: SODIUM BICARBONATE 8.4% SYRING 150 ML in DEXTROSE 5% 1,000 ML IV SCH ×2 (00:40→22:06)
[2018-09-05] MEDS: LORAZEPAM INJ 2 MG/ML VIAL IV PRN (03:47)
[2018-09-05 04:48] LABS: CALCIUM 8.6 mg/dL (8.4-10.2); CREATININE, SERUM 4.28 mg/dL (0.57-1.11)
[2018-09-05] MEDS: HEPARIN 25,000U/0.45% NS 250ML 250 ML IV SCH (05:25)
[2018-09-05] MEDS ORDERED: HYDROMORPHONE 1MG/1ML INJ IV PRN (07:15)
[2018-09-05] MEDS ORDERED: LORAZEPAM INJ 2 MG/ML VIAL IV PRN (07:15)
[2018-09-05] MEDS: PANTOPRAZOLE SOD 40 MG TABEC PO SCH ×2 (07:30→16:30)
--- NOTE | 2018-09-05 07:45 | Progress Note ---
DATE: September 05, 2018 She is in ICU 194. Patient was admitted here for severe sepsis, urinary tract infection, [id number] renal failure, AFib with rapid ventricular response. The patient is currently in pain. The patient could not be given too much pain medication secondary to her blood pressure dropping and also AFib with RVR. I had a long discussion with Brenden, and her son is agreeable to hospice. The patient is confused and in pain. OBJECTIVE VITALS: Blood pressure is 114/95. Temperature is 97.4. Pulse ox is 100%. Respiratory rate is 18. HEENT: Normocephalic. Mucosa is very dry. CV: S1 and S2, regular. Tachycardic. ABDOMEN: Tender. EXTREMITIES: Positive for lymphedema. Positive for chronic atrophic changes. Positive for a laceration on the right lower extremity. Positive for edema. LAB VALUES: White count is 13.8, hemoglobin 8.1, hematocrit 26.7. PT 15.7, INR 1.15. AST 22, ALT 13, ALP 128. BUN 78, creatinine 4.28. CONSULTS: Dr. Diaz, Dr. Borges, and Dr. Singh. ASSESSMENT 1. Atrial fibrillation with rapid ventricular response. 2. Hypertension. 3. Severe sepsis. 4. Acute kidney injury, stage 4. 5. Chronic kidney disease, stage 1. 6. Skin decubitus ulcer. PLAN: Right now, the patient is on amiodarone. The patient is on Merrem. The patient is on pantoprazole, heparin and amiodarone. The plan is to stop all those and hospice consulted. Will go ahead and start the patient on Dilaudid 1 mg q.4 h. and Ativan 1 mg q.4 h., too, alternating. If needed, the patient will escalate the dose of Ativan and Dilaudid. Further recommendations depending on clinical course. Hospice will be instated. Again, I had a long discussion with Brenden, the son. Will continue monitoring the patient and discontinue medications after hospice has been instated. Job#: [id number] DATE OF CONSULTATION: September 05, 2018 Job#: [id number]
[2018-09-05] MEDS: ALLOPURINOL 300 MG TAB PO SCH (08:17)
[2018-09-05] MEDS: BALSAM PERU/CASTOR OIL 60 GM OINT...G. TP SCH (08:17)
[2018-09-05] MEDS: HYDROMORPHONE 2MG/ML 2 MG/ML ML IV PRN ×2 (08:28→21:00)
[2018-09-05] MEDS ORDERED: POTASSIUM CHLORIDE 20MEQ/100ML 100 ML IV ONE (10:45)
--- NOTE | 2018-09-05 12:53 | Progress Note ---
DATE: September 05, 2018 CARDIOLOGY PROGRESS NOTE SUBJECTIVE: Altered mental status, now home hospice being set up. OBJECTIVE VITAL SIGNS: Temperature 97.7, heart rate 139, AFib, respiratory rate 18, blood pressure 135/87, O2 sat 100% on nasal cannula. GENERAL: Altered mental status. Seems comfortable. Coarse breath sounds. CARDIOVASCULAR: Irregularly irregular rate and rhythm. Normal S1 and S2. ABDOMEN: Soft. EXTREMITIES: Edema. CARDIOVASCULAR MEDICATIONS: Reviewed. On Ativan as needed, antibiotics. STUDIES: Reviewed. PTT 60, creatinine 4.2. ASSESSMENT: Patient being transitioned to home hospice. Has history of atrial fibrillation, severe sepsis with septic shock, hypertension, history of acute kidney injury on chronic kidney disease, decubitus ulcer, encephalopathy. At this point in time, being transitioned to hospice. Dilaudid as needed and Ativan as needed. Guarded prognosis. Extensive discussion with family. Will be available as needed. Job#: [id number] JULIANA
[2018-09-05] MEDS: MEROPENEM 500MG 500 MG in SODIUM CHLORIDE 0.9% 50ML 50 ML IV SCH (16:19)
[2018-09-05] MEDS: SIMVASTATIN 20 MG TAB PO SCH (19:59)
[2018-09-05] MEDS: NOREPINEPHRINE INJ 4MG/4ML 8 MG in DEXTROSE 5% 250ML 250 ML IV SCH (19:59)
[2018-09-06] VITALS (48 sets, daily range): BP systolic 50–117; BP diastolic 35–85
[2018-09-06] MEDS: HYDROMORPHONE 2MG/ML 2 MG/ML ML IV PRN (04:01)
[2018-09-06] MEDS: PANTOPRAZOLE SOD 40 MG TABEC PO SCH (07:30)
--- NOTE | 2018-09-06 07:40 | Progress Note ---
DATE: September 06, 2018 Patient is under hospice at this time. I had a long discussion again with Brenden, the son, and Kristen, the daughter. The patient and the family decided her to be in hospice. Currently, she is on home medications including amiodarone for atrial fibrillation, heparin for atrial fibrillation. She is on Merrem for sepsis and pantoprazole for GI prophylaxis. Patient is on vasopressin for her hypertension. Patient's blood pressure is 60s/45, temperature is 98.6, SpO2 of 72% on BiPAP. LABS: Sodium of 140, potassium 3.0, CO2 of 23, BUN 78, and creatinine of 4.28. Hemoglobin of 8.1 and hematocrit of 26.7. PHYSICAL EXAMINATION HEENT: Normocephalic, atraumatic. Pupils are reactive. CVS: S1 and S2 normal. Irregularly irregular. Tachycardic. LUNGS: Decreased air entry in all lung ramírez. ABDOMEN: Tender in the left lower quadrant. Hip is tender on the left side too. EXTREMITIES: Covered for laceration. Otherwise possible lymphedema. ASSESSMENT 1. Acute renal failure and chronic renal failure. 2. Atrial fibrillation with rapid ventricular response. 3. Sepsis. 4. Anemia. 5. Debility. 6. Hyperlipidemia. 7. Diabetes mellitus. At this time, patient is hospice. Patient is to all her medication. All medication will be withdrawn today and the patient will be transferred to hospice care and will be taken home. Again, discussed in length with Brenden and Kristen, the family, and they are agreeable to the plan. For further information look in the chart. For complete medicine list, look in the chart. Patient also has hypertension from pain management and this is also agreeable with the family. Job#: [id number]
[2018-09-06] MEDS: ALLOPURINOL 300 MG TAB PO SCH (08:22)
[2018-09-06] MEDS: BALSAM PERU/CASTOR OIL 60 GM OINT...G. TP SCH (09:00)
[2018-09-06] MEDS: MEROPENEM 500MG 500 MG in SODIUM CHLORIDE 0.9% 50ML 50 ML IV SCH (13:00)
--- NOTE | 2018-09-06 18:54 | Progress Note ---
DATE: September 06, 2018 CARDIOLOGY PROGRESS NOTE SUBJECTIVE: Altered mental status. OBJECTIVE VITAL SIGNS: Temperature 98, heart rate 105 on telemetry and atrial fibrillation. Blood pressure 107/85, O2 sat 98%, respiratory rate ____, BMI of 30.7. GENERAL: Altered mental status, cephalopathic. LUNGS: Coarse breath sounds and rales and rhonchi throughout. CARDIOVASCULAR: Irregularly irregular rate and rhythm. Normal S1 and S2. ABDOMEN: Soft. EXTREMITIES: Edema 1+. CARDIOVASCULAR MEDICATIONS: Reviewed. The patient now transitioning to hospice care. Hydromorphone p.r.n.and lorazepam p.r.n. LABORATORY STUDIES: Reviewed. ASSESSMENT: 1. . 2. Respiratory failure, acute. 3. Acute renal failure. 4. Metabolic derangements. 5. Severe sepsis with septic shock. 6. Urinary tract infection. 7. Atrial fibrillation. 8. Lymphedema. 9. Anemia. PLAN: Supportive care, focus on comfort ongoing. The patient seems comfortable currently. Extensive discussion with family members. Offer support and counseling will be available as needed. Job#: [id number]
== END 2018-09-06 12:50 | disposition hospice, home (50) | DRG 871 ==
LOC: ER 10:43 → ERHOLD 14:00 → ICU 22:05
PROVIDERS: ADMIT Family Medicine; ATTEND Family Medicine
DX: A41.9 Sepsis, unspecified organism (principal); J18.9 Pneumonia, unspecified organism; J96.00 Acute respiratory failure, unspecified whether with hypoxia or hypercapnia; R65.21 Severe sepsis with septic shock; N39.0 Urinary tract infection, site not specified; N17.9 Acute kidney failure, unspecified; I13.0 Hypertensive heart and chronic kidney disease with heart failure and stage 1 through stage 4 chronic kidney disease, or unspecified chronic kidney disease; N18.4 Chronic kidney disease, stage 4 (severe); I50.32 Chronic diastolic (congestive) heart failure; G93.40 Encephalopathy, unspecified; E87.2 Acidosis; R65.20 Severe sepsis without septic shock; E86.1 Hypovolemia; E11.9 Type 2 diabetes mellitus without complications; E78.5 Hyperlipidemia, unspecified; Z79.01 Long term (current) use of anticoagulants; I10 Essential (primary) hypertension; I48.2 Chronic atrial fibrillation; J44.9 Chronic obstructive pulmonary disease, unspecified; E86.0 Dehydration; Z66 Do not resuscitate; E11.22 Type 2 diabetes mellitus with diabetic chronic kidney disease
CPT/HCPCS: 36415; 51700; 70450; 71045; 74176; 80048; 80053; 80307; 81001; 82550; 82553; 82948; 83605; 83880; 84484; 85025; 85610; 85730; 87040; 87045; 87086; 87186; 87493; 93005; 93306; 96360; 99284; J0456; J0696; J1644; J1940; J2060; J2185; J2543; J3480; J7030; J7040; J7070